=== PATIENT | female | born 1950 | race Caucasian/White ===

== ENCOUNTER → 2018-05-14 14:37 | Outpatient (CLI) | payer MEDICARE, OTHER, SELFPAY ==
--- NOTE | 2018-05-14 | DI.MG.S_ITS ---
BILATERAL DIGITAL SCREENING MAMMOGRAM 3D/2D WITH CAD: 05/14/2018 CLINICAL: Routine screening. Comparison is made to exams dated: 12/26/2016 mammogram, 08/04/2010 mammogram, and 07/21/2009 mammogram - [facility]. The tissue of both breasts is heterogeneously dense. This may lower the sensitivity of mammography. Current study was also evaluated with a Computer Aided Detection (CAD) system. There is 0.4 cm oval low density asymmetry with an indistinct and circumscribed margin in the right breast anterior depth superior region seen on the mediolateral oblique view only. No other significant masses, calcifications, or other findings are seen in either breast. IMPRESSION: INCOMPLETE: NEEDS ADDITIONAL IMAGING EVALUATION The 0.4 cm oval low density asymmetry in the right breast is indeterminate. Mediolateral and spot compression views as well as additional views with possible ultrasound are recommended. This exam was interpreted at Station ID: [id number]. NOTE: For mammograms, a report in lay terms will be sent to the patient. Approximately 15% of breast malignancies will not be visualized mammographically. In the management of a palpable breast mass, a negative mammogram must not discourage biopsy of a clinically suspicious lesion. Electronically Signed By: Michael bray/odette:05/14/2018 16:25:24 letter sent: Additional Imaging Needed ACR BI-RADS Category 0: Incomplete 3340F
== END ==
PROVIDERS: PCP Family Medicine; Visit Provider Family Medicine
DX: Z12.31 Encounter for screening mammogram for malignant neoplasm of breast (principal); Z13.820 Encounter for screening for osteoporosis; Z78.0 Asymptomatic menopausal state; E07.9 Disorder of thyroid, unspecified
CPT/HCPCS: 77063; 77067; 77080

== ENCOUNTER → 2018-06-04 09:52 | Outpatient (CLI) | payer MEDICARE, OTHER, SELFPAY ==
--- NOTE | 2018-06-04 | DI.MG.S_ITS ---
UNILATERAL RIGHT DIGITAL DIAGNOSTIC MAMMOGRAM 3D/2D WITH ADDITIONAL VIEWS: 06/04/2018 CLINICAL: Additional evaluation requested from prior study. Comparison is made to exams dated: 05/14/2018 mammogram, 12/26/2016 mammogram, and 08/04/2010 mammogram - [facility]. The tissue of right breast is heterogeneously dense. This may lower the sensitivity of mammography. Previously identified 0.4 cm oval low density asymmetry with an indistinct margin in the right breast anterior depth superior region seen on the mediolateral oblique view only on comparison screening mammograms persists with additional views. This asymmetry appears to localize to the lateral breast on tomosynthesis views. IMPRESSION: INCOMPLETE: NEEDS ADDITIONAL IMAGING EVALUATION Previously identified 0.4 cm oval low density asymmetry with an indistinct margin in the right breast anterior depth superior region seen on the mediolateral oblique view only on comparison screening mammograms persists with additional views. This asymmetry appears to localize to the lateral breast on tomosynthesis views. A targeted ultrasound is recommended for further evaluation, and will be performed immediately following this exam. This exam was interpreted at Station ID: [id number]. NOTE: For mammograms, a report in lay terms will be sent to the patient. Approximately 15% of breast malignancies will not be visualized mammographically. In the management of a palpable breast mass, a negative mammogram must not discourage biopsy of a clinically suspicious lesion. Electronically Signed By: Franky Hayes M.D. ecl/:06/04/2018 10:54:50 letter sent: Additional Imaging Needed ACR BI-RADS Category 0: Incomplete 3340F
--- NOTE | 2018-06-04 | DI.US.S_ITS ---
LIMITED ULTRASOUND OF RIGHT BREAST: 06/04/2018 CLINICAL: Additional evaluation requested from prior study. Comparison is made to exams dated: 06/04/2018 mammogram, 05/14/2018 mammogram, 12/26/2016 mammogram, 08/04/2010 mammogram, 07/21/2009 mammogram, and 10/26/2007 mammogram - [facility]. Real-time and Doppler ultrasound of the right breast upper outer quadrant were performed. Vera scale images of the real-time examination were reviewed. Targeted ultrasound of the upper outer right breast demonstrates a 0.5 x 0.4 x 0.3 cm oval circumscribed hypoechoic mass in the right breast at 10:00 position 5 cm from the nipple with internal echogenic foci, mildly increased posterior acoustic enhancement/through-transmission, and no vascularity on Doppler ultrasound. This appears to correlate with the findings seen on comparison screening and diagnostic mammography. Target ultrasound of the right axilla demonstrates no right axillary lymphadenopathy. IMPRESSION: PROBABLY BENIGN 1. 0.5 cm oval mass in the right breast at 10:00 position 5 cm from the nipple demonstrates no vascularity and likely represents a complicated cyst or intramammary lymph node. A followup diagnostic mammogram and ultrasound in 6 months is recommended to demonstrate stability. The patient is advised to monitor her breasts and to return sooner for re-evaluation should she feel anything grow or change. 2. No right axillary lymphadenopathy. This exam was interpreted at Station ID: [id number]. Electronically Signed By: Franky Hayes M.D. ecl/:06/04/2018 11:46:43 letter sent: Followup Recommended Ultrasound BI-RADS: 3 Probably benign
== END ==
PROVIDERS: PCP Family Medicine; Visit Provider Family Medicine
DX: R92.8 Other abnormal and inconclusive findings on diagnostic imaging of breast (principal); N63.11 Unspecified lump in the right breast, upper outer quadrant
CPT/HCPCS: 76642; 77065; G0279

== ENCOUNTER → 2019-02-03 09:15 | Outpatient (CLI) | payer MEDICARE, OTHER, SELFPAY ==
--- NOTE | 2019-02-03 | DI.MG.S_ITS ---
UNILATERAL RIGHT DIGITAL DIAGNOSTIC MAMMOGRAM 3D/2D SHORT-TERM FOLLOW-UP: 02/03/2019 CLINICAL: Short follow up. Comparison is made to exams dated: 06/04/2018 mammogram, 05/14/2018 mammogram, 12/26/2016 mammogram, and 06/04/2018 [facility]. The tissue of right breast is heterogeneously dense. This may lower the sensitivity of mammography. Previously identified oval low density asymmetry with an indistinct margin in the right breast anterior depth superior region seen on the mediolateral oblique view only on comparison mammograms of 06/04/18 and 05/14/18 appears less prominent on the current exam. This asymmetry again appears to localize to the lateral breast on tomosynthesis views. IMPRESSION: INCOMPLETE: NEEDS ADDITIONAL IMAGING EVALUATION Previously identified oval low density asymmetry with an indistinct margin in the right breast anterior depth superior region seen on the mediolateral oblique view only on comparison mammograms of 06/04/18 and 05/14/18 appears less prominent on the current exam. A targeted ultrasound is recommended for further evaluation, and will be performed immediately following this exam. This exam was interpreted at Station ID: [id number]. NOTE: For mammograms, a report in lay terms will be sent to the patient. Approximately 15% of breast malignancies will not be visualized mammographically. In the management of a palpable breast mass, a negative mammogram must not discourage biopsy of a clinically suspicious lesion. Electronically Signed By: Franky Hayes M.D. ecl/:02/03/2019 10:19:37 ACR BI-RADS Category 0: Incomplete 3340F
--- NOTE | 2019-02-03 | DI.US.S_ITS ---
LIMITED ULTRASOUND OF RIGHT BREAST: 02/03/2019 CLINICAL: 6 month follow-up of right breast. Comparison is made to exams dated: 02/03/2019 mammogram, 06/04/2018 ultrasound, 06/04/2018 mammogram, 05/14/2018 mammogram, 12/26/2016 mammogram, and 08/04/2010 mammogram - [facility]. Color flow and real-time ultrasound of the right breast 10 o'clock region were performed. Vera scale images of the real-time examination were reviewed. Targeted ultrasound demonstrates a 0.2 x 0.2 x 0.1 cm (previously 0.5 x 0.4 x 0.3 cm on 06/04/18) oval circumscribed hypoechoic mass in the right breast at 10:00 position 5 cm from the nipple with internal echogenic foci, mildly increased posterior acoustic enhancement/through-transmission, and no vascularity on Doppler ultrasound. This appears to correlate with the findings seen on comparison screening and diagnostic mammography. IMPRESSION: PROBABLY BENIGN 0.2 cm oval mass in the right breast at 10:00 position 5 cm from the nipple is decreased in size from prior comparison exam of 05/04/18. The mass again demonstrates no vascularity and likely represents a complicated cyst or intramammary lymph node. A followup diagnostic mammogram and ultrasound in 6 months is recommended to demonstrate stability. The patient is advised to monitor her breasts and to return sooner for re-evaluation should she feel anything grow or change. This exam was interpreted at Station ID: [id number]. Electronically Signed By: Franky Hayes M.D. ecl/:02/03/2019 11:47:41 letter sent: Followup Recommended Ultrasound BI-RADS: 3 Probably benign
== END ==
PROVIDERS: PCP Family Medicine; Visit Provider Family Medicine
DX: R92.8 Other abnormal and inconclusive findings on diagnostic imaging of breast (principal); N63.11 Unspecified lump in the right breast, upper outer quadrant
CPT/HCPCS: 76642; 77065; G0279

== ENCOUNTER 2019-05-27 09:25 | Day surgery (SDC) | payer MEDICARE, OTHER, SELFPAY ==
[2019-05-27] MEDS: PROPARACAINE 0.5% OPHTH SOL 2 DROPS EYE-OP (10:11)
[2019-05-27] MEDS: CATARACT EYE COMPOUND (10 DROPS/SYRINGE) 3 DROPS EYE-OP (10:14)
[2019-05-27 10:16] VITALS: BP 126/75; PULSE 74; RESP 15; TEMP 36.2; O2SAT 96
[2019-05-27 10:17] VITALS: BMI 35.3
--- NOTE | 2019-05-27 11:02 | PM.PREOP ---
Pre-operative Note Interval Note History & Physical reviewed/Exam performed by Physician: Yes Changes to H&P: No
--- NOTE | 2019-05-27 11:02 | PM.OP.1 ---
Operative Date/Time/Diagnoses Pre-op diagnosis: Nuclear Cataract Left eye Post-op diagnosis: same Procedure & Clinicians Same procedure as scheduled: Yes Surgeon: Anil Kendrick Anesthesia Type: MAC +/- and Sedation Operative Notes Procedure in detail: Patient brought to the operating suite. Tetracaine drops placed in the left eye. Patient was prepped and draped in sterile manner. Wire lid speculum was placed in the eye. Betadine drops were placed on the eye. This was irrigated. Lidocaine jelly was placed on the eye. A paracentesis port was created with a side-port blade. 0.1 mL 1% preservative free lidocaine was injected into the anterior chamber. The anterior chamber was deepened with viscoelastic. 2.6 mm keratome was used to create a temporal clear corneal incision. Cystotome and Utrata forceps were used to create continuous tear capsulorrhexis. Balanced salt solution was used to hydro dissect the nucleus. The phacoemulsification handpiece was inserted and the nucleus was removed using the stop and chop technique. The irrigation aspiration handpiece was inserted and the remaining cortex was removed. Anterior chamber was deepened with viscoelastic. An Pop ZCB00 intraocular lens with a power of 21.0 was injected into the capsular bag. Irrigation aspiration handpiece was inserted and the remaining viscoelastic was removed. Incision was hydrated with balanced salt solution and found to be leak free with pressure with Weck-Genna sponges. 0.1 mL Vigamox injected anterior chamber. 0.3 mL Kenalog 10 mg was injected subconjunctivally. Lid speculum was removed. The patient left the operating room in excellent condition. Complications: none Post-operative Condition: stable Disposition: same day surgery
[2019-05-27] MEDS: CHONDROIDTIN/SOD HYALURONATE 1.05 ML SYRINGE INTRAOCULA (11:17)
[2019-05-27] MEDS: TETRACAINE 0.5% OPHTH DROPS 4 ML 2 DROPS EYE-OP (11:17)
[2019-05-27] MEDS: MOXIFLOXACIN INJ 5 MG/ML VIAL EYE-OP (11:18)
[2019-05-27] MEDS: PHENYLEPHRINE/LIDOCAINE VIAL (OR) 0.2 ML EYE-OP (11:18)
[2019-05-27] MEDS: TRIAMCINOLONE 50 MG/5 ML VIAL INJ (11:18)
[2019-05-27] MEDS: BALANCED SALT IRRIG SOLN NO.2 500 ML, EPINEPHrine 1 MG IRR (11:20)
[2019-05-27 11:35] VITALS: BP 122/77; RESP 16; TEMP 36; O2SAT 94
== END 2019-05-27 11:51 | disposition home or self-care (01) ==
PROVIDERS: PCP Family Medicine; Referring Provider Ophthalmology; Visit Provider Ophthalmology
PROC: (CPT 66984; principal; 2019-05-27 11:15)
DX: H25.12 Age-related nuclear cataract, left eye (principal)
CPT/HCPCS: 66984; J0171; J2250; J3010; J3301

== ENCOUNTER 2019-06-10 07:57 | Day surgery (SDC) | payer MEDICARE, OTHER, SELFPAY ==
[2019-06-10 09:00] VITALS: BP 128/72; PULSE 66; RESP 17; TEMP 36.5; O2SAT 97
[2019-06-10] MEDS: PROPARACAINE 0.5% OPHTH SOL 2 DROPS EYE-OP (09:00)
[2019-06-10] MEDS: CATARACT EYE COMPOUND (10 DROPS/SYRINGE) 3 DROPS EYE-OP (09:05)
--- NOTE | 2019-06-10 09:37 | PM.PREOP ---
Pre-operative Note Interval Note History & Physical reviewed/Exam performed by Physician: Yes Changes to H&P: No
--- NOTE | 2019-06-10 09:37 | PM.OP.1 ---
Operative Date/Time/Diagnoses Pre-op diagnosis: Nuclear cataract right eye Procedure & Clinicians Procedure: Cataract Surgery Same procedure as scheduled: Yes Surgeon: Anil Kendrick Anesthesia Type: MAC +/- and Sedation Operative Notes Procedure in detail: Patient brought to the operating suite. Tetracaine drops placed in the right eye. Patient was prepped and draped in sterile manner. Wire lid speculum was placed in the eye. Betadine drops were placed on the eye. This was irrigated. Lidocaine jelly was placed on the eye. A paracentesis port was created with a side-port blade. 0.1 mL 1% preservative free lidocaine was injected into the anterior chamber. The anterior chamber was deepened with viscoelastic. 2.6 mm keratome was used to create a temporal clear corneal incision. Cystotome and Utrata forceps were used to create continuous tear capsulorrhexis. Balanced salt solution was used to hydro dissect the nucleus. The phacoemulsification handpiece was inserted and the nucleus was removed using the stop and chop technique. The irrigation aspiration handpiece was inserted and the remaining cortex was removed. Anterior chamber was deepened with viscoelastic. An Pop ZCB00 intraocular lens with a power of 21.5 was injected into the capsular bag. Irrigation aspiration handpiece was inserted and the remaining viscoelastic was removed. Incision was hydrated with balanced salt solution and found to be leak free with pressure with Weck-Genna sponges. 0.1 mL Vigamox injected anterior chamber. 0.3 mL Kenalog 10 mg was injected subconjunctivally. Lid speculum was removed. The patient left the operating room in excellent condition. Complications: none Post-operative Condition: stable Disposition: same day surgery
[2019-06-10] MEDS: PHENYLEPHRINE/LIDOCAINE VIAL (OR) 0.2 ML EYE-OP (09:54)
[2019-06-10] MEDS: TRIAMCINOLONE 50 MG/5 ML VIAL INJ (09:54)
[2019-06-10] MEDS: MOXIFLOXACIN INJ 5 MG/ML VIAL EYE-OP (09:54)
[2019-06-10] MEDS: LIDOCAINE JELLY 2% 5 ML 1 APPLIC TOP (09:55)
[2019-06-10] MEDS: BALANCED SALT IRRIG SOLN NO.2 500 ML, EPINEPHrine 1 MG IRR (09:55)
[2019-06-10] MEDS: TETRACAINE 0.5% OPHTH DROPS 4 ML 2 DROPS EYE-OP (09:55)
[2019-06-10] MEDS: CHONDROIDTIN/SOD HYALURONATE 1.05 ML SYRINGE INTRAOCULA (09:55)
[2019-06-10 10:07] VITALS: BP 97/58; PULSE 66; RESP 16; TEMP 36.7; O2SAT 96
[2019-06-10 10:14] VITALS: BP 112/70; PULSE 65; O2SAT 95
== END 2019-06-10 10:20 | disposition home or self-care (01) ==
PROVIDERS: PCP Family Medicine; Referring Provider Ophthalmology; Visit Provider Ophthalmology
PROC: (CPT 66984; principal; 2019-06-10 09:45)
DX: H25.11 Age-related nuclear cataract, right eye (principal)
CPT/HCPCS: 66984; J0171; J2250; J3010; J3301

== ENCOUNTER 2019-07-15 11:13 | Inpatient (IN) | payer MEDICARE, OTHER, SELFPAY ==
[2019-07-15] VITALS (14 sets, daily range): BP systolic 140–215; BP diastolic 86–135; PULSE 85–120; RESP 15–30; TEMP 36.1–36.9; O2SAT 95–97; BMI 33.0
--- NOTE | 2019-07-15 11:20 | ED.GENADULT ---
HPI - General Adult General Chief complaint: Urogenital-Female Stated complaint: thinks she has sepsis from a bladder infection Time Seen by Provider: 07/15/19 11:20 History of Present Illness HPI narrative: 69-year-old woman who began having urinary tract symptoms yesterday was seen via telemedicine visit with her primary care physician and started on Levaquin. She describes her urinary symptoms as decreased amount of urine, no pain, spasm or flank pain. She has taken 2 doses as well as a g of Tylenol at 10:00 a.m. today. At 11:00 a.m. when she presents to the emergency room she is tachycardic, tachypneic, profusely diaphoretic, complaining of mild low abdominal pain without rebound or guarding and initially is relatively hypertensive. Presumption was initially sepsis with fluids and antibiotics started along with cultures, antibiotics and urine. She is not having any pulmonary symptoms. Similarly, she describes no chest pain, shortness of breath no prior cardiac history, no pleuritic symptoms, no lower extremity edema. 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 Related Data Home Medications Medication Instructions Recorded Confirmed atorvastatin [Lipitor] 20 mg PO HS #0 12/17/10 06/10/19 levothyroxine [Synthroid] 0.125 mg PO Q DAY #0 12/17/10 06/10/19 lisinopril 10 mg PO BEDTIME #0 12/17/10 06/10/19 paroxetine HCl [Paxil] 20 mg PO QDAY #0 12/17/10 06/10/19 aspirin 325 mg PO DAILY 05/27/19 06/10/19 Allergies Allergy/AdvReac Type Severity Reaction Status Date / Time No Known Drug Allergies Allergy Verified 06/10/19 09:12 Review of Systems Review of Systems Narrative: Denies ? cough ? cold ? chest pain ? dyspnea (despite her tachypnea) ? orthopnea ? wheezing ? abdominal pain ? change to bowel habits ? nausea vomiting ? skin changes ? rashes Patient History Medical History Elevated cholesterol (Acute) History of migraine (Acute) Hypertension (Acute) IBS (irritable bowel syndrome) (Acute) Panic attacks (Acute) Throat cancer (Acute 2003) TIA (transient ischemic attack) (Acute) Surgical History History of carotid endarterectomy (Acute) Hx laparoscopic cholecystectomy (Acute) Social History household members: spouse Smoking Status: Never smoker alcohol intake: current Smoking Status: Never smoker alcohol intake frequency: 0-2 drinks per day Substance Use Type: marijuana Exam Narrative Exam Narrative: General: Ill-appearing with rigors and profuse diaphoresis. Able to give a complete and coherent history. Well-nourished well-developed HEENT: Very dry mucous membranes, normal sclera with reactive pupils, Neck: No JVD, supple Respiratory: Lungs are clear to auscultation, no wheezing no rales no rhonchi. Full and symmetrical air movement Cardiac: Tachycardic with regular rhythm no murmurs no bruits Abdomen: Soft, minor suprapubic tenderness without rebound or guarding. Good bowel tones, no flank pain Skin: Warm and dry, no rashes. Minor bruise on the left patella with no evidence of hypoperfused lower extremities or lower extremity cellulitis Neurologic: Grossly neurologically intact with no obvious asymmetries or abnormalities Extremities: No trauma, well perfused Psych: Cooperative, appropriate insight and affect Initial Vital Signs Initial Vital Signs: Vital Signs Temperature 98.2 F 07/15/19 11:15 Pulse Rate 120 H 07/15/19 11:15 Respiratory Rate 15 07/15/19 11:15 Blood Pressure 194/115 H 07/15/19 11:15 Pulse Oximetry 96 07/15/19 11:15 Course Orders Ordered: ED Orders 07/15/19 11:26 Complete Blood Count AUTO DIFF Stat Comprehensive Metabolic Panel Stat Lactate (Lactic Acid) Stat Magnesium Stat Procalcitonin Stat Troponin I Stat 07/15/19 11:32 XR chest 1V Stat 07/15/19 12:00 Blood Culture Stat 07/15/19 12:54 Urinalysis and Microscopic Stat Urine Culture Stat 07/15/19 13:24 EC echo doppler complete Stat 07/15/19 13:50 CT chest abd pel w con Stat 07/15/19 13:58 C-Reactive Protein Quant Stat D Dimer Stat Lactate Dehydrogenase Stat Respiratory Panel (Film Array) Stat Troponin & CK Cardiac Panel Stat 07/15/19 15:16 EKG-12 Lead Stat Sodium Chloride (Normal Saline 0.9%) 1,000 mls @ 150 mls/hr IV CONT JESSICA Last Infusion: 07/15/19 16:32 Dose: 0 mls/hr Documented by: Admin: 07/15/19 16:06 Dose: 150 mls/hr Documented by: PERLA Heparin Sodium/Dextrose (Heparin Drip) 25,000 unit in 500 mls @ 20 mls/hr IV CONT JESSICA; Protocol Last Admin: 07/15/19 15:32 Dose: 1,000 units/hr, 20 mls/hr Documented by: PERLA Nitroglycerin (Nitrostat) 0.4 mg SL [id number] PRN PRN Reason: Chest Pain Last Admin: 07/15/19 15:33 Dose: 0.4 mg Documented by: PERLA Discontinued Medications Aspirin (Aspirin Chew) 324 mg PO NOW ONE Stop: 07/15/19 13:18 Last Admin: 07/15/19 14:34 Dose: 324 mg Documented by: PERLA Heparin Sodium (Porcine) (Heparin) 5,000 unit IV NOW ONE Stop: 07/15/19 15:16 Last Admin: 07/15/19 15:32 Dose: 5,000 unit Documented by: PERLA Sodium Chloride (Normal Saline 0.9%) 2,850 mls @ 950 mls/hr 30 ml/kg infuse over 3 hr (2850 ml) IV NOW ONE Stop: 07/15/19 14:31 Last Infusion: 07/15/19 15:00 Dose: 950 mls/hr Documented by: Admin: 07/15/19 12:07 Dose: 950 mls/hr Documented by: PERLA Piperacillin/Tazobactam/Dextrose (Zosyn) 4.5 gm in 100 mls @ 200 mls/hr IV NOW ONE Stop: 07/15/19 12:01 Last Infusion: 07/15/19 13:08 Dose: 0 mls/hr Documented by: Admin: 07/15/19 12:09 Dose: 200 mls/hr Documented by: PERLA Sodium Chloride (Normal Saline 0.9%) 1,000 mls @ 1,000 mls/hr IV BOLUS ONE Stop: 07/15/19 13:18 Last Infusion: 07/15/19 16:07 Dose: 0 mls/hr Documented by: Admin: 07/15/19 14:34 Dose: 1,000 mls/hr Documented by: PERLA Magnesium Sulfate (Magnesium Sulfate) 2 gm in 50 mls @ 25 mls/hr IV NOW ONE Stop: 07/15/19 16:13 Last Infusion: 07/15/19 16:41 Dose: 0 mls/hr Documented by: PERLA Cosigned by: JOSE Admin: 07/15/19 14:34 Dose: 25 mls/hr Documented by: PERLA Cosigned by: JOSE Metoprolol Tartrate (Lopressor) 5 mg IV Q5M JESSICA Stop: 07/15/19 15:41 Last Admin: 07/15/19 16:41 Dose: Not Given Documented by: Admin: 07/15/19 16:40 Dose: Not Given Documented by: Admin: 07/15/19 15:32 Dose: 5 mg Documented by: PERLA Nitroglycerin (Nitro-Bid) 0.5 inch TOP NOW ONE Stop: 07/15/19 15:22 Last Admin: 07/15/19 15:33 Dose: 0.5 inch Documented by: PERLA Vital Signs Vital signs: Vital Signs - 8 hr 07/15/19 11:15 07/15/19 11:30 07/15/19 12:08 Temperature 98.2 F Pulse Rate 120 H 115 H 118 H Respiratory Rate 15 25 H 22 Blood Pressure 194/115 H Blood Pressure [Left Arm] 192/92 H 171/117 H Pulse Oximetry 96 96 97 07/15/19 12:35 07/15/19 13:04 07/15/19 13:55 Temperature 98.4 F Pulse Rate 110 H 102 H 108 H Respiratory Rate 23 27 H 27 H Blood Pressure Blood Pressure [Left Arm] 205/110 H 194/91 H 215/94 H Pulse Oximetry 97 95 97 07/15/19 14:04 07/15/19 14:30 07/15/19 15:04 Temperature Pulse Rate 104 H 107 H 116 H Respiratory Rate 24 24 22 Blood Pressure Blood Pressure [Left Arm] 190/93 H 187/91 H 192/86 H Pulse Oximetry 97 96 96 07/15/19 15:33 07/15/19 15:50 07/15/19 16:00 Temperature Pulse Rate 116 H 113 H 87 Respiratory Rate 22 30 H Blood Pressure 206/135 H Blood Pressure [Left Arm] 157/94 H 153/97 H Pulse Oximetry 96 96 07/15/19 17:01 Temperature Pulse Rate 85 Respiratory Rate 20 Blood Pressure Blood Pressure [Left Arm] 140/91 H Pulse Oximetry 95 Medical Decision Making Medical Records Medical records reviewed: Yes I reviewed the patient's medical records. Lab Data Lab results reviewed: Yes I reviewed the patient's lab results. Result diagrams: 07/15/19 11:26 07/15/19 11:26 Labs: Lab Results 07/15/19 07/15/19 07/15/19 Range/Units 11:26 11:26 11:26 WBC 12.3 H (4.5-11.0) X10^3/uL RBC 5.29 H (4.0-5.2) X10^6/uL Hgb 17.0 H (12.0-16.0) g/dL Hct 50.1 H (36-46) % MCV 94.8 (80-100) fL MCH 32.2 (26-34) PG MCHC 33.9 (30-36) % RDW 14.0 (11.6-14.8) % Plt Count 318 (150-400) X10^3/uL Neut % (Auto) 84.0 H (50-75) % Lymph % (Auto) 8.5 L (25-40) % Dare % (Auto) 6.9 (3-14) % Eos % (Auto) 0.0 L (2-4) % Baso % (Auto) 0.6 (0-2) % Neut # (Auto) 71427 H (0391-3566) /uL Lymph # (Auto) 1100 (6310-5227) /uL Dare # (Auto) 900 (0-900) /uL Eos # (Auto) 0 (0-450) /uL Baso # (Auto) 100 (0-100) /uL D-Dimer (<230) ng/mL Sodium 138 (137-145) mmol/L Potassium 3.6 (3.4-5.1) mmol/L Chloride 98 (98-107) mmol/L Carbon Dioxide 21 L (22-32) mmol/L BUN 21 H (7-17) mg/dL Creatinine 1.05 H (0.52-1.04) mg/dL Estimated GFR 51.7 L (>60) mL/min BUN/Creatinine Ratio 20.0 (6-22) Glucose 179 H (80-110) mg/dL Lactate (0.7-2.1) mmol/L Calcium 10.0 (8.4-10.2) mg/dL Magnesium (1.6-2.3) mg/dL Total Bilirubin 1.8 H (0.2-1.3) mg/dL AST 94 H (14-36) IU/L ALT 68 H (<35) IU/L Alkaline Phosphatase 122 (38-126) U/L Lactate Dehydrogenase (313-618) U/L Total Creatine Kinase (30-135) U/L CK-MB (CK-2) (<2.37) ng/mL CK-MB (CK-2) Rel Index (1.5-5.0) % Troponin I (0.01-0.034) ng/mL C-Reactive Protein (<1.0) mg/dL Total Protein 9.2 H (6.3-8.2) g/dL Albumin 5.1 H (3.5-5.0) g/dL Globulin 4.1 (1.7-4.1) g/dL Albumin/Globulin Ratio 1.2 (1.0-2.8) Procalcitonin 0.10 (<0.5) ng/mL Urine Color Urine Appearance Urine pH (4.5-8.0) Ur Specific [place] (1.000-1.035) Urine Protein (Negative) Urine Glucose (UA) (Negative) g/dL Urine Ketones (NEGATIVE) Urine Occult Blood (Negative) Urine Nitrate (Negative) Urine Bilirubin (NEGATIVE) Urine Urobilinogen (0.2) E.U./dL Ur Leukocyte Esterase (NEGATIVE) Urine RBC (0-5/HPF) Urine WBC (0-5/HPF) Ur Squamous Epith Cells (0-5/HPF) Amorphous Sediment Urine Bacteria (None) Urine Mucus (Negative) Ur Culture Indicated? Chlamy pneumoniae PCR (Not Detect) Adenovirus (PCR) (Not Detect) B.parapertussis DNA PCR (Not Detect) Coronavirus OC43 (PCR) (Not Detect) Coronavirus HKU1 (PCR) (Not Detect) Coronavirus 229E (PCR) (Not Detect) Coronavirus NL63 (PCR) (Not Detect) Human Metapneumovir PCR (Not Detect) Influenza Type A (PCR) (Not Detect) Influenza Type B (PCR) (Not Detect) M. pneumoniae (PCR) (Not Detect) Parainfluenza 1 (PCR) (Not Detect) Parainfluenza 2 (PCR) (Not Detect) Parainfluenza 3 (PCR) (Not Detect) Parainfluenza 4 (PCR) (Not Detect) RSV (PCR) (Not Detect) Entero/Rhino (PCR) (Not Detect) 07/15/19 07/15/19 07/15/19 Range/Units 11:26 11:26 12:54 WBC (4.5-11.0) X10^3/uL RBC (4.0-5.2) X10^6/uL Hgb (12.0-16.0) g/dL Hct (36-46) % MCV (80-100) fL MCH (26-34) PG MCHC (30-36) % RDW (11.6-14.8) % Plt Count (150-400) X10^3/uL Neut % (Auto) (50-75) % Lymph % (Auto) (25-40) % Dare % (Auto) (3-14) % Eos % (Auto) (2-4) % Baso % (Auto) (0-2) % Neut # (Auto) (3150-2240) /uL Lymph # (Auto) (2561-5433) /uL Dare # (Auto) (0-900) /uL Eos # (Auto) (0-450) /uL Baso # (Auto) (0-100) /uL D-Dimer (<230) ng/mL Sodium (137-145) mmol/L Potassium (3.4-5.1) mmol/L Chloride (98-107) mmol/L Carbon Dioxide (22-32) mmol/L BUN (7-17) mg/dL Creatinine (0.52-1.04) mg/dL Estimated GFR (>60) mL/min BUN/Creatinine Ratio (6-22) Glucose (80-110) mg/dL Lactate 6.7 H* (0.7-2.1) mmol/L Calcium (8.4-10.2) mg/dL Magnesium 1.1 L (1.6-2.3) mg/dL Total Bilirubin (0.2-1.3) mg/dL AST (14-36) IU/L ALT (<35) IU/L Alkaline Phosphatase (38-126) U/L Lactate Dehydrogenase (313-618) U/L Total Creatine Kinase (30-135) U/L CK-MB (CK-2) (<2.37) ng/mL CK-MB (CK-2) Rel Index (1.5-5.0) % Troponin I 0.595 H* (0.01-0.034) ng/mL C-Reactive Protein (<1.0) mg/dL Total Protein (6.3-8.2) g/dL Albumin (3.5-5.0) g/dL Globulin (1.7-4.1) g/dL Albumin/Globulin Ratio (1.0-2.8) Procalcitonin (<0.5) ng/mL Urine Color Yellow Urine Appearance Clear Urine pH 7.0 (4.5-8.0) Ur Specific [place] 1.020 (1.000-1.035) Urine Protein 3+ H (Negative) Urine Glucose (UA) Negative (Negative) g/dL Urine Ketones 1+ H (NEGATIVE) Urine Occult Blood 3+ H (Negative) Urine Nitrate Negative (Negative) Urine Bilirubin Negative (NEGATIVE) Urine Urobilinogen 0.2 (0.2) E.U./dL Ur Leukocyte Esterase Negative (NEGATIVE) Urine RBC 1-5/hpf (0-5/HPF) Urine WBC 5-10/hpf H (0-5/HPF) Ur Squamous Epith Cells 0-1 /hpf (0-5/HPF) Amorphous Sediment 1+ Urine Bacteria Few (2-10) H (None) Urine Mucus 1+ H (Negative) Ur Culture Indicated? Specimen cultured Chlamy pneumoniae PCR (Not Detect) Adenovirus (PCR) (Not Detect) B.parapertussis DNA PCR (Not Detect) Coronavirus OC43 (PCR) (Not Detect) Coronavirus HKU1 (PCR) (Not Detect) Coronavirus 229E (PCR) (Not Detect) Coronavirus NL63 (PCR) (Not Detect) Human Metapneumovir PCR (Not Detect) Influenza Type A (PCR) (Not Detect) Influenza Type B (PCR) (Not Detect) M. pneumoniae (PCR) (Not Detect) Parainfluenza 1 (PCR) (Not Detect) Parainfluenza 2 (PCR) (Not Detect) Parainfluenza 3 (PCR) (Not Detect) Parainfluenza 4 (PCR) (Not Detect) RSV (PCR) (Not Detect) Entero/Rhino (PCR) (Not Detect) 07/15/19 07/15/19 07/15/19 Range/Units 13:58 13:58 13:58 WBC (4.5-11.0) X10^3/uL RBC (4.0-5.2) X10^6/uL Hgb (12.0-16.0) g/dL Hct (36-46) % MCV (80-100) fL MCH (26-34) PG MCHC (30-36) % RDW (11.6-14.8) % Plt Count (150-400) X10^3/uL Neut % (Auto) (50-75) % Lymph % (Auto) (25-40) % Dare % (Auto) (3-14) % Eos % (Auto) (2-4) % Baso % (Auto) (0-2) % Neut # (Auto) (2497-3781) /uL Lymph # (Auto) (7448-4890) /uL Dare # (Auto) (0-900) /uL Eos # (Auto) (0-450) /uL Baso # (Auto) (0-100) /uL D-Dimer 220 (<230) ng/mL Sodium (137-145) mmol/L Potassium (3.4-5.1) mmol/L Chloride (98-107) mmol/L Carbon Dioxide (22-32) mmol/L BUN (7-17) mg/dL Creatinine (0.52-1.04) mg/dL Estimated GFR (>60) mL/min BUN/Creatinine Ratio (6-22) Glucose (80-110) mg/dL Lactate Cancelled (0.7-2.1) mmol/L Calcium (8.4-10.2) mg/dL Magnesium (1.6-2.3) mg/dL Total Bilirubin (0.2-1.3) mg/dL AST (14-36) IU/L ALT (<35) IU/L Alkaline Phosphatase (38-126) U/L Lactate Dehydrogenase 697 H (313-618) U/L Total Creatine Kinase (30-135) U/L CK-MB (CK-2) (<2.37) ng/mL CK-MB (CK-2) Rel Index (1.5-5.0) % Troponin I (0.01-0.034) ng/mL C-Reactive Protein < 0.5 (<1.0) mg/dL Total Protein (6.3-8.2) g/dL Albumin (3.5-5.0) g/dL Globulin (1.7-4.1) g/dL Albumin/Globulin Ratio (1.0-2.8) Procalcitonin (<0.5) ng/mL Urine Color Urine Appearance Urine pH (4.5-8.0) Ur Specific [place] (1.000-1.035) Urine Protein (Negative) Urine Glucose (UA) (Negative) g/dL Urine Ketones (NEGATIVE) Urine Occult Blood (Negative) Urine Nitrate (Negative) Urine Bilirubin (NEGATIVE) Urine Urobilinogen (0.2) E.U./dL Ur Leukocyte Esterase (NEGATIVE) Urine RBC (0-5/HPF) Urine WBC (0-5/HPF) Ur Squamous Epith Cells (0-5/HPF) Amorphous Sediment Urine Bacteria (None) Urine Mucus (Negative) Ur Culture Indicated? Chlamy pneumoniae PCR (Not Detect) Adenovirus (PCR) (Not Detect) B.parapertussis DNA PCR (Not Detect) Coronavirus OC43 (PCR) (Not Detect) Coronavirus HKU1 (PCR) (Not Detect) Coronavirus 229E (PCR) (Not Detect) Coronavirus NL63 (PCR) (Not Detect) Human Metapneumovir PCR (Not Detect) Influenza Type A (PCR) (Not Detect) Influenza Type B (PCR) (Not Detect) M. pneumoniae (PCR) (Not Detect) Parainfluenza 1 (PCR) (Not Detect) Parainfluenza 2 (PCR) (Not Detect) Parainfluenza 3 (PCR) (Not Detect) Parainfluenza 4 (PCR) (Not Detect) RSV (PCR) (Not Detect) Entero/Rhino (PCR) (Not Detect) 07/15/19 07/15/19 07/15/19 Range/Units 13:58 13:58 13:58 WBC (4.5-11.0) X10^3/uL RBC (4.0-5.2) X10^6/uL Hgb (12.0-16.0) g/dL Hct (36-46) % MCV (80-100) fL MCH (26-34) PG MCHC (30-36) % RDW (11.6-14.8) % Plt Count (150-400) X10^3/uL Neut % (Auto) (50-75) % Lymph % (Auto) (25-40) % Dare % (Auto) (3-14) % Eos % (Auto) (2-4) % Baso % (Auto) (0-2) % Neut # (Auto) (2241-0302) /uL Lymph # (Auto) (4754-0969) /uL Dare # (Auto) (0-900) /uL Eos # (Auto) (0-450) /uL Baso # (Auto) (0-100) /uL D-Dimer (<230) ng/mL Sodium (137-145) mmol/L Potassium (3.4-5.1) mmol/L Chloride (98-107) mmol/L Carbon Dioxide (22-32) mmol/L BUN (7-17) mg/dL Creatinine (0.52-1.04) mg/dL Estimated GFR (>60) mL/min BUN/Creatinine Ratio (6-22) Glucose (80-110) mg/dL Lactate 2.1 (0.7-2.1) mmol/L Calcium (8.4-10.2) mg/dL Magnesium (1.6-2.3) mg/dL Total Bilirubin (0.2-1.3) mg/dL AST (14-36) IU/L ALT (<35) IU/L Alkaline Phosphatase (38-126) U/L Lactate Dehydrogenase (313-618) U/L Total Creatine Kinase 995 H (30-135) U/L CK-MB (CK-2) 4.75 H (<2.37) ng/mL CK-MB (CK-2) Rel Index 0.5 L (1.5-5.0) % Troponin I 0.713 H* (0.01-0.034) ng/mL C-Reactive Protein (<1.0) mg/dL Total Protein (6.3-8.2) g/dL Albumin (3.5-5.0) g/dL Globulin (1.7-4.1) g/dL Albumin/Globulin Ratio (1.0-2.8) Procalcitonin (<0.5) ng/mL Urine Color Urine Appearance Urine pH (4.5-8.0) Ur Specific [place] (1.000-1.035) Urine Protein (Negative) Urine Glucose (UA) (Negative) g/dL Urine Ketones (NEGATIVE) Urine Occult Blood (Negative) Urine Nitrate (Negative) Urine Bilirubin (NEGATIVE) Urine Urobilinogen (0.2) E.U./dL Ur Leukocyte Esterase (NEGATIVE) Urine RBC (0-5/HPF) Urine WBC (0-5/HPF) Ur Squamous Epith Cells (0-5/HPF) Amorphous Sediment Urine Bacteria (None) Urine Mucus (Negative) Ur Culture Indicated? Chlamy pneumoniae PCR Not detected (Not Detect) Adenovirus (PCR) Not detected (Not Detect) B.parapertussis DNA PCR Not detected (Not Detect) Coronavirus OC43 (PCR) Not detected (Not Detect) Coronavirus HKU1 (PCR) Not detected (Not Detect) Coronavirus 229E (PCR) Not detected (Not Detect) Coronavirus NL63 (PCR) Not detected (Not Detect) Human Metapneumovir PCR Not detected (Not Detect) Influenza Type A (PCR) Not detected (Not Detect) Influenza Type B (PCR) Not detected (Not Detect) M. pneumoniae (PCR) Not detected (Not Detect) Parainfluenza 1 (PCR) Not detected (Not Detect) Parainfluenza 2 (PCR) Not detected (Not Detect) Parainfluenza 3 (PCR) Not detected (Not Detect) Parainfluenza 4 (PCR) Not detected (Not Detect) RSV (PCR) Not detected (Not Detect) Entero/Rhino (PCR) Not detected (Not Detect) Imaging Data CT chest abdomen pelvis: Radiologist's Impression: CHEST: Lungs and pleura: No acute airspace opacities. No pleural effusions or pneumothorax. Central and peripheral airways appear patent and normal in caliber. Mediastinum: Heart size is normal. No pericardial effusion. No mediastinal or hilar adenopathy by size criteria. Thoracic aorta and central pulmonary arteries are normal in size. Scattered atheromatous calcifications are present within the aortic arch. Esophagus is normal in caliber. No hiatal hernia. Chest wall: No axillary or supraclavicular adenopathy by size criteria. Thyroid gland is unremarkable. ABDOMEN: Solid organs: Liver is normal in size and hypodense suggesting hepatic steatosis. Gallbladder is surgically absent. Biliary system is non dilated. Pancreas enhances normally. Spleen is normal in size and enhancement. No adrenal nodules. Kidneys demonstrate normal size and enhancement, without hydronephrosis. The low density cystic lesion is present within the lower pole of the left kidney. Peritoneum and bowel: Bowel loops demonstrate normal wall thickness and caliber. The appendix is thin walled and gas filled.There are scattered sigmoid diverticula. No evidence for diverticulitis. No free fluid or air. Nodes and vessels: No retroperitoneal or mesenteric adenopathy by size criteria. Aorta and inferior vena cava are normal in size. There are scattered atheromatous calcifications throughout the aorta and iliac arteries bilaterally. Miscellaneous: No ventral hernias. PELVIS: Genitourinary: Bladder wall thickness is normal. The uterus and ovaries are grossly unremarkable. Miscellaneous: No inguinal hernias or adenopathy. Bones: No suspicious bony lesions. No vertebral body compression fractures. IMPRESSION: 1. No acute pulmonary or abdominal findings to explain sepsis. Normal appendix. 2. Diverticulosis. No acute diverticulitis. 3. Hepatic steatosis. 4. Aortic atherosclerosis. Dictated by: Loli Newman M.D. on 07/15/2019 at 13:58 ECG Data Attestation: I personally reviewed and interpreted this ECG as follows: Interpretation: EKG has a ventricular rate of 113 with sinus tachycardia Normal axis, Q-waves inferiorly No acute STT wave changes however there was some nonspecific ST abnormalities MDM Narrative Medical decision making narrative: 12:54 re-evaluation of patient and data. She has responded nicely to initial fluid boluses with improved perfusion, decreased rigors however gentle movement even to assist with removing her pants leaves her significantly tachypneic. After noting the elevated troponin more focused cardiac exam and history were undertaken and again no dyspnea, orthopnea chest pain, exertional fatigue at all. Possibility of the cardiomyopathy, myocarditis or pericarditis is entertained. Given her elevated troponin will add a chewable aspirin to her regimen. Repeat lactate after fluid resuscitation will be obtained. Still waiting for urine, she was not able to void. In and out catheter will be obtained. Abdomen is reexamined no significant tenderness to suggest intra-abdominal abscess or High source for her findings. Chest x-ray similarly relatively unremarkable with the question of a developing right lower lobe pneumonia a possibility. Given the elevated white count, slight AST ALT bump, slight bilirubin as well as absence of any pulmonary symptoms the probability of Covid19 is less. However will ask for a respiratory panel as well as Covid19 swab, CRP, ferritin D-dimer and LDH. As she remains hypertensive at this time with to good peripheral lines will not moved to central line yet. She is not needing any additional respiratory support 1326 overall clinical picture still remains somewhat murky. Her urinalysis does have some white cells and bacteria in certainly could be a source. She complains of intermittent bili pain that she attributes to her irritable bowel disease. Given the interesting constellation of findings I am going to go ahead and CT her chest to better elucidate the probable right lower lobe pneumonia, pelvis and abdomen given the abdominal pain and still uncertain sepsis source and a cardiac echo given the elevated troponin without overt cardiac symptoms or ST elevations on her EKG Clinically, she remains somewhat hypertensive, weak but not hypoxic heart rate is come down an cognitive status remains completely intact 1520 2nd troponin is increased, she remains hypertensive, diaphoretic, tachycardic. CT scan does not suggest any obvious abnormalities to explain an infectious etiology. Clinically she states she is feeling better, still quite tremulous but no longer diaphoretic. Still no chest pain or dyspnea. Lactic acid has come down to normal levels. There are no clinical signs for cardiogenic shock. Echocardiogram has been done, will contact Dr. Douglas for read. EF is normal. Mild aortic sclerosis. Hyperdynamic. [id number] Dr Amanuel Barillas, hospitalist at [facility]. Reviewed findings and concerns, feels that this is most likely a partially treated sepsis due to urinary tract infection with out significant cardiac complication given the echocardiogram showing no evidence of wall abnormality. His recommendation is hospitalization at [facility]. Will contact Dr. Bridges or partner, her primary care physician, to discuss admission. After single dose of IV metoprolol, sublingual nitroglycerin and nitro paste blood pressure is nicely controlled at 140 and heart rate has come to the mid 90s. [id number] Dr Sanchez Critical Care Time Critical Care Time Critical Care Time: Yes Total Critical Care Time: 43 Attestation: Critical care time is separate from other billable procedures. This critical care time includes consultation with family and other consulting doctors, review of records, and interpretation of data from labs, EKGs and imaging as well as managements of sepsis, hemodynamic instability, severe infection with multi-system organ dysfunction Discharge Plan Departure Clinical Impression: Acute UTI, Elevated troponin Sepsis Qualifiers: Sepsis type: sepsis due to unspecified organism Sepsis acute organ dysfunction status: with acute organ dysfunction Severe sepsis acute organ dysfunction type: unspecified Severe sepsis shock status: without septic shock Qualified Code(s): A41.9 - Sepsis, unspecified organism Hypertension Qualifiers: Hypertension type: unspecified Qualified Code(s): I10 - Essential (primary) hypertension Pneumonia Qualifiers: Pneumonia type: due to unspecified organism Laterality: right Lung location: lower lobe of lung Qualified Code(s): J18.9 - Pneumonia, unspecified organism Admit Date/Time: 07/15/19 17:06 Admit Provider: Brandi Parrish
--- NOTE | 2019-07-15 11:30 | PC.NURSE ---
pt arrived rigorous with mild diaphoresis. reports UTI sx starting 2 days ago. telehealth appt with Dr Bridges yesterday, RX for levaquin and took 2 doses. reports UTI sx have subsided. tachycardic 110, afebrile at this time. reports taking tylenol [employer].
--- NOTE | 2019-07-15 11:32 | DI.RAD.S_ITS ---
PROCEDURE: XR CHEST 1V INDICATIONS: sepsis TECHNIQUE: One view of the chest was acquired. COMPARISON: Located Within [facility], , CHEST 2 VIEW, 05/18/2017, 8:30. FINDINGS: Surgical changes and devices: None. Lungs and pleura: Subtle increased opacity in right lower lung field is seen concerning for a small patchy right lower lobe infiltrates. Left lung is clear. No pleural effusions or pneumothorax. Mediastinum: Mediastinal contours appear normal. Heart size is normal. Bones and chest wall: No suspicious bony lesions. Overlying soft tissues appear unremarkable. IMPRESSION: Findings concerning for small patchy right lower lobe infiltrate versus atelectasis. Dictated by: Kenan Chiu M.D. on 07/15/2019 at 12:32 Approved by: Kenan Chiu M.D. on 07/15/2019 at 12:34
[2019-07-15 11:49] LABS: Add Manual Diff / Slide Review NO; Basophils Absolute Auto 100 /uL (0-100); Basophils Percent Auto 0.6 % (0-2); Eosinophils Absolute Auto 0 /uL (0-450); Hematocrit 50.1 % (36-46); Lymphocytes Absolute Auto 1100 /uL (1100-4500); Lymphocytes Percent Auto 8.5 % (25-40); Mean Corpuscular HGB Conc 33.9 % (30-36); Mean Corpuscular Hemoglobin 32.2 PG (26-34); Mean Corpuscular Volume 94.8 fL (80-100); Monocytes Absolute Auto 900 /uL (0-900); Monocytes Percent Auto 6.9 % (3-14); Neutrophils Absolute Auto 10400 /uL (1500-7000); Platelet Count 318 X10^3/uL (150-400); Red Blood Cell Count 5.29 X10^6/uL (4.0-5.2); White Blood Cell Count 12.3 X10^3/uL (4.5-11.0)
[2019-07-15 11:52] LABS: Magnesium 1.1 mg/dL (1.6-2.3)
[2019-07-15 11:53] LABS: Albumin 5.1 g/dL (3.5-5.0); Albumin Globulin Ratio 1.2 (1.0-2.8); Alkaline Phosphatase 122 U/L (38-126); Bilirubin Total 1.8 mg/dL (0.2-1.3); Blood Urea Nitrogen 21 mg/dL (7-17); Carbon Dioxide 21 mmol/L (22-32); Chloride 98 mmol/L (98-107); Estimated Glomerular Filt Rate 51.7 mL/min (>60); Globulin 4.1 g/dL (1.7-4.1); Glucose 179 mg/dL (80-110); Potassium 3.6 mmol/L (3.4-5.1); Sodium 138 mmol/L (137-145); Total Protein 9.2 g/dL (6.3-8.2)
[2019-07-15 11:54] LABS: Lactate (Lactic Acid) 6.7 mmol/L (0.7-2.1)
[2019-07-15 11:59] LABS: Aspartate Aminotransferase 94 IU/L (14-36)
[2019-07-15 12:00] LABS: Alanine Aminotransferase 68 IU/L (<35); HEMOLYSIS 15 (0-50)
[2019-07-15] MEDS: SODIUM CHLORIDE 0.9% 2,850 ML 950 ML IV (12:07)
[2019-07-15] MEDS: PIPERACILLIN-TAZO 4.5 GM/100 ML FROZ.PIGGY IV (12:09)
--- NOTE | 2019-07-15 12:09 | PC.NURSE ---
Pt moved into rm 2 per MD for need of central line. IVF and zosyn infusing per MAR. pt AAOx3 maintaining airway appropriately. Rigors have calmed.
[2019-07-15 12:30] LABS: Troponin I 0.595 ng/mL (0.01-0.034)
[2019-07-15 13:00] LABS: Appearance Urine UA CLEAR; Bilirubin Urine UA NEGATIVE (NEGATIVE); Color Urine UA YELLOW; Glucose Urine UA NEGATIVE (Negative); Ketones Urine UA 1+ (NEGATIVE); Leukocyte Esterase Urine UA NEGATIVE (NEGATIVE); Nitrite Urine UA NEGATIVE (Negative); Occult Blood Urine UA 3+ (Negative); Protein Urine UA 3+ (Negative); Urobilinogen Urine UA 0.2 E.U./dL (0.2)
[2019-07-15 13:14] LABS: RBC Urine 1-5/HPF (0-5/HPF)
[2019-07-15 13:15] LABS: Amorphous Sediment Urine 1+; Bacteria Urine Few (2-10); Culture Indicated Urine Specimen Cultured; Mucus Urine 1+ (Negative); Squamous Epithelial Cell Urine 0-1 /HPF (0-5/HPF); WBC Urine 5-10/HPF (0-5/HPF)
--- NOTE | 2019-07-15 13:24 | DI.ECHO.S_ITS ---
[facility]---------+ [facility] +---------+ : : [address] [place] : : : : [id number] : : : : Phone: [phone]+ Echocardiogram Report + + :Name: MATTHEW GOODEN Study Date: 07/15/2019 Height: 66 in : :[facility] Weight: 205 lb : : Gender: Female BSA: 2.0 m2 : :: 1950 Age: 69 yrs BP: 194/115 mmHg: :Reason For Study: Sepsis with elevated troponin : :Ordering Physician: Judy : :Denisse Performed By: Bren Victoria : :Referring: JUDY GOMEZ L : + + Interpretation Summary Sinus tachycardia. Normal LV size and wall thickness. Normal wall motion and LV systolic function. EF is 70-75%. Normal chamber sizes. No significant valvular abnormalities. Compared to prior study 10/04/2011 no changes have occurred. Procedure: A two-dimensional transthoracic echocardiogram with color flow and Doppler was performed. The study quality was technically adequate. Comparison is made with the echocardiogram of 10/04/2011. The patient was in sinus tachycardia with heart rates between 104-119 bpm during the exam. Left Ventricle: The left ventricle is normal in size. Left ventricular wall thickness is borderline increased. The ejection fraction is estimated to be 70-75%. Diastolic function could not be accurately assessed due to tachycardia. Right Ventricle: The right ventricle is normal in size and function. Atria: Both atria are normal in size. There is no Doppler evidence for an interatrial shunt. Mitral Valve: The mitral valve is normal in structure and function. There is mild mitral regurgitation. Aortic Valve: The aortic valve is trileaflet. There is mild aortic valve sclerosis. No aortic regurgitation is present. Tricuspid Valve: The tricuspid valve is normal in structure and function. There is trace tricuspid regurgitation. Pulmonary artery pressures cannot be estimated because of the lack of a measurable TR jet velocity but the IVC suggests a CVP of around 8 mmHg. Pulmonic Valve: The pulmonic valve is not well seen, but is grossly normal. There is no pulmonic valvular regurgitation. Great Vessels: The aortic root is not well visualized but is probably normal size. The ascending aorta is normal in size. The IVC is of normal diameter and collapses less than 50% with a sniff. This suggests a right atrial pressure of 8 mm Hg. Pericardium/ Pleura There is no pericardial effusion. There is no pleural effusion. MMode/2D Measurements & Calculations LVIDd: 4.3 cm LVOT diam: 2.1 cm LVIDs: 2.8 cm asc Aorta Diam: 3.2 cm FS: 33.4 % Ao Arch Diam (Prox Trans): 2.9 cm EPSS: 1.2 cm IVSd: 0.99 cm LVPWd: 1.1 cm LV merchant. diameter/BSA (cm/m^2): 2.1 LV sys. diameter/BSA (cm/m^2): 1.4 LA A2 area: 16.8 cm2 RA long axis: 4.3 cm LA A4 area: 16.4 cm2 RA area: 12.7 cm2 LA length (vol): 4.9 cm RA vol: 31.7 ml LA vol: 48.0 ml RA : 15.7 ml/m2 LA vol index: 23.8 ml/m2 IVC diam: 1.8 cm RVD1 (basal): 2.9 cm TAPSE: 2.3 cm Doppler Measurements & Calculations Ao V2 max: 207.8 cm/sec LVOT Max Briseida: 100.7 cm/sec Ao V2 mean: 156.4 cm/sec LV V1 max P.1 mmHg Ao max P.8 mmHg LV V1 VTI: 20.9 cm Ao mean P.5 mmHg MIKE(I,D): 2.1 cm2 Ao V2 VTI: 35.5 cm MIKE(V,D): 1.7 cm2 sev ratio: 0.59 MIKE indexed to BSA (cm^2/m^2): 1.0 MV E max briseida: 83.7 cm/sec SV(LVOT): 73.1 ml MV A max briseida: 123.0 cm/sec MV E/A: 0.68 Lat Peak E' Briseida: 6.9 cm/sec E/E' lat: 12.1 Electronically signed by: Emily Douglas M.D. on Reading Physician:07/16/2019 06:41 AM
[2019-07-15 13:39] LABS: Reflexed Lactate in 2 Hours Y
--- NOTE | 2019-07-15 13:50 | DI.CT.S_ITS ---
PROCEDURE: CT CHEST ABD PEL W CON INDICATIONS: sepsis, unclear source TECHNIQUE: After the administration of intravenous contrast, 5 mm thick sections acquired from the lung apices to the symphysis. 5 mm coronal and sagittal reformats were performed, with additional 7 mm MIP reformats through the lungs. For radiation dose reduction, the following was used: automated exposure control, adjustment of mA and/or kV according to patient size. COMPARISON: None. FINDINGS: Image quality: Excellent. CHEST: Lungs and pleura: No acute airspace opacities. No pleural effusions or pneumothorax. Central and peripheral airways appear patent and normal in caliber. Mediastinum: Heart size is normal. No pericardial effusion. No mediastinal or hilar adenopathy by size criteria. Thoracic aorta and central pulmonary arteries are normal in size. Scattered atheromatous calcifications are present within the aortic arch. Esophagus is normal in caliber. No hiatal hernia. Chest wall: No axillary or supraclavicular adenopathy by size criteria. Thyroid gland is unremarkable. ABDOMEN: Solid organs: Liver is normal in size and hypodense suggesting hepatic steatosis. Gallbladder is surgically absent. Biliary system is non dilated. Pancreas enhances normally. Spleen is normal in size and enhancement. No adrenal nodules. Kidneys demonstrate normal size and enhancement, without hydronephrosis. The low density cystic lesion is present within the lower pole of the left kidney. Peritoneum and bowel: Bowel loops demonstrate normal wall thickness and caliber. The appendix is thin walled and gas filled.There are scattered sigmoid diverticula. No evidence for diverticulitis. No free fluid or air. Nodes and vessels: No retroperitoneal or mesenteric adenopathy by size criteria. Aorta and inferior vena cava are normal in size. There are scattered atheromatous calcifications throughout the aorta and iliac arteries bilaterally. Miscellaneous: No ventral hernias. PELVIS: Genitourinary: Bladder wall thickness is normal. The uterus and ovaries are grossly unremarkable. Miscellaneous: No inguinal hernias or adenopathy. Bones: No suspicious bony lesions. No vertebral body compression fractures. IMPRESSION: 1. No acute pulmonary or abdominal findings to explain sepsis. Normal appendix. 2. Diverticulosis. No acute diverticulitis. 3. Hepatic steatosis. 4. Aortic atherosclerosis. Dictated by: Loli Newman M.D. on 07/15/2019 at 13:58 Approved by: Loli Newman M.D. on 07/15/2019 at 14:17
[2019-07-15 14:31] LABS: D Dimer 220 ng/mL (<230)
[2019-07-15 14:32] LABS: Lactate 2HR (Lactic Acid Rflx) 2.1 mmol/L (0.7-2.1)
[2019-07-15] MEDS: ASPIRIN 81 MG CHEW TAB 324 MG PO (14:34)
[2019-07-15] MEDS: SODIUM CHLORIDE 0.9% 1,000 ML 1000 ML IV (14:34)
[2019-07-15] MEDS: MAGNESIUM SULFATE 2 GM/50 ML PIGGYBACK IV (14:34)
[2019-07-15 14:35] LABS: C-Reactive Protein Quant < 0.5 mg/dL (<1.0); Lactate Dehydrogenase 697 U/L (313-618)
[2019-07-15 14:58] LABS: Creatine Kinase 995 U/L (30-135)
[2019-07-15 15:13] LABS: CKMB % Relative Index 0.5 % (1.5-5.0); Creatine Kinase MB 4.75 ng/mL (<2.37)
[2019-07-15 15:14] LABS: Troponin I 0.713 ng/mL (0.01-0.034)
[2019-07-15 15:18] LABS: Adenovirus Not Detected (Not Detect); Coronavirus 229E Not Detected (Not Detect); Coronavirus HKU1 Not Detected (Not Detect); Coronavirus NL 63 Not Detected (Not Detect); Coronavirus OC43 Not Detected (Not Detect); Human Metapneumovirus Not Detected (Not Detect); Human Rhinovirus/Enterovirus Not Detected (Not Detect); Influenza A Not Detected (Not Detect); Influenza B Not Detected (Not Detect); Parainfluenza Virus 1 Not Detected (Not Detect); Parainfluenza Virus 2 Not Detected (Not Detect)
[2019-07-15 15:19] LABS: Bordetella pertussis Not Detected (Not Detect); Chlamydophila pneumoniae Not Detected (Not Detect); Mycoplasma pneumoniae Not Detected (Not Detect); Parainfluenza Virus 3 Not Detected (Not Detect); Parainfluenza Virus 4 Not Detected (Not Detect); Respiratory Syncytial Virus Not Detected (Not Detect)
[2019-07-15] MEDS: METOPROLOL TARTRATE 5 MG/5 ML INJ IV (15:32)
[2019-07-15] MEDS: HEPARIN DRIP 25,000 UNIT/500 ML IV.SOLN 20 UNIT IV (15:32)
[2019-07-15] MEDS: HEPARIN 5,000 UNIT/ML VIAL 5000 UNIT IV (15:32)
[2019-07-15] MEDS: NITROGLYCERIN 0.4 MG SL TAB SL (15:33)
[2019-07-15] MEDS: NITROGLYCERIN OINT 1 INCH/GM OINT...G. 0.5 INCH TOP (15:33)
[2019-07-15] MEDS: SODIUM CHLORIDE 0.9% 1,000 ML 150 ML IV ×2 (16:06→19:52)
--- NOTE | 2019-07-15 16:07 | PC.NURSE ---
1500: made aware pt BP increasing to over 200 systolic. Pt remains tachycardic, diaphoretic. denies pain. repeat troponin resulted and is more elevated than the first draw. awaiting MD orders 1520: Pt given heparin bolus and started on heparin gtt. metoprolol 5mg, 1 tab 0.4mg nitro SL, and 0.5 inch nitro paste given per MAR. Bolus fluids infused and maintenance fluids started at 150ml/hr. pt given water to drink as requested. questions answered and [facility] consulted for beds.Pt resting in room in NAD .
[2019-07-15 18:31] LABS: D Dimer 252 ng/mL (<230)
[2019-07-15 18:33] LABS: Creatine Kinase 1247 U/L (30-135); Lactate Dehydrogenase 738 U/L (313-618)
[2019-07-15 18:36] LABS: C-Reactive Protein Quant < 0.5 mg/dL (<1.0)
[2019-07-15 18:53] LABS: PTT Partial Thromboplastin Tim 33 SECONDS (26.4-36.2)
--- NOTE | 2019-07-15 19:25 | P.HP_ITS ---
History of Present Illness History of Present Illness Date Patient Seen: 07/15/19 Time Patient Seen: 19:25 Date of Onset of Symptoms: 07/04/19 Chief complaint: thinks she has sepsis from a bladder infection Narrative: This 69-year-old female presents to emergency department via private vehicle for complaints of severe shaking thought to be related to an advanced urinary tract infection. Patient was felt to be septic after extensive workup in the ER and felt that ICU admission appropriate. Patient was improved condition at the time that she arrived on the ICU. Patient's Primary Care Physician is Dr. Bridges. Patient's symptoms started in mid June and she was seen by Dr. Bridges via telemedicine with complaints of GI complaints on July 03. She was having some diarrhea and upset stomach. She was having increase in belching. She was treated with omeprazole and told to come back in if her symptoms persisted. She was evaluated again on July 13 for complaints of shaking chills and rigors with low-grade fever and lower abdominal pain. It was felt that she may have a urinary tract infection she was started on Levaquin. She took the Levaquin yesterday and then again today. Her symptoms were better yesterday and then tod ay she was so weak and shaking so badly that she was really unable to walk and her had to help her to the bathroom. She phoned our office and we recommended that she go to the emergency department immediately. The patient states that her fever and diarrhea started 2 days ago. She has not had any blood in her stool she has had multiple stools a day she is not able to describe how many. She has had lower abdominal pressure but no significant pain. She has not eaten anything for 2 days but has been taking it in fluids although significantly decreased. She feels that maybe she has a UTI because her urine output is low. She is not having any significant dysuria but she is having urgency without urine output. Again she denies any blood in her stool. She has not traveled or been exposed to any unknown source. She denies any respiratory complaints. She denies any shortness of breath or cough or runny nose. She denies any chest pain or palpitations In the emergency department she was found to be hypertensive and shaking. She was given 3 L of IV fluids. Her CK and troponin came back elevated and a repeat showed these to be even more elevated. She had 2 EKGs which showed no changes. She had an echo was which was read by Dr. Douglas and was entirely normal. The case was discussed with hospitalist at [facility] and they felt that probably this was related to an untreated are partially treated urinary tract infection and showed there were no cardiac concerns at this time. There was a questionable right lower lobe pneumonia on her chest x-ray and a CT of her chest abdomen and pelvis did not really feel any pulmonary embolus any recurrence of her cancer, any pneumonia, no lung changes no evidence of inflammation of the colon. Because of the elevated CK and troponin as well as a markedly elevated blood pressure as high as 200/110 and elevated heart rate she was given 5 mg of metoprolol and 1/2 inch of nitropaste and her blood pressure came down to 140/80 and heart rate into the 90s. She was given IV Zosyn. She was started on a heparin drip. Her urine showed 2-10 bacteria 5-10 white blood cell and cultures pending. [place] 19 swab was pending. Respiratory panel is negative. GI panel is pending. Magnesium was low and this was replaced in the ER. Her initial lactate was 6.7 but after 3 L of fluid it came down to 2.1. Past medical history: 1. Two thousand three in 2003 she had esophageal cancer and was treated with radiation. She has had routine follow-up. She is a nonsmoker 2. 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 Hypertension 4. Hyperlipidemia 5. Peripheral vascular disease status post right carotid endarterectomy 6. Impaired glucose tolerance 7. Depression anxiety 8. GERD Current medications are aspirin 325 mg daily, atorvastatin 20 mg daily, levothyroxine 125 mcg daily, lisinopril 10 mg daily, Paxil 20 mg daily Allergies: No known drug allergies Past surgical history: 1. Cholecystectomy 2. Right-sided lymph node dissection 3. Right carotid endarterectomy Social history: Patient is and she lives in in a [facility]. She is originally from [place] [facility] but lived in [place] for a long time. 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 She lives at home with her . She has 2 grown children who live in [place] and 2 grandchildren her and telling him as well. Health related behavior: Patient drinks alcohol on a nightly basis Patient occasionally uses marijuana Patient walks her dogs but no specific exercise Patient does not smoke and never has on a regular basis Family history: Diabetes Mother of congestive heart failure at 94 recently Dad at age 48 of acute [place] No esophageal or gastrointestinal cancers in the family. Review of systems: Review of systems is negative other than in HPI Patient History Medical History Elevated cholesterol (Acute) History of migraine (Acute) Hypertension (Acute) IBS (irritable bowel syndrome) (Acute) Panic attacks (Acute) Throat cancer (Acute 2004) TIA (transient ischemic attack) (Acute) Surgical History History of carotid endarterectomy (Acute) Hx laparoscopic cholecystectomy (Acute) Family & Social History Social History: household members spouse Tobacco & Substance use: Smoking Status Never smoker alcohol intake current alcohol intake frequency 0-2 drinks per day Substance Use Type marijuana Meds Home Medications and Allergies Home Medications Medication Instructions Recorded Confirmed Type atorvastatin [Lipitor] 20 mg PO HS #0 12/17/10 06/10/19 History levothyroxine [Synthroid] 0.125 mg PO Q DAY #0 12/17/10 06/10/19 History lisinopril 10 mg PO BEDTIME #0 12/17/10 06/10/19 History paroxetine HCl [Paxil] 20 mg PO QDAY #0 12/17/10 06/10/19 History aspirin 325 mg PO DAILY 05/27/19 06/10/19 History Allergies Allergy/AdvReac Type Severity Reaction Status Date / Time No Known Drug Allergies Allergy Verified 06/10/19 09:12 Exam Vital Signs (past 8 hours): - 07/15/19 11:30 07/15/19 12:08 07/15/19 12:35 Temperature 98.4 F Pulse Rate 115 H 118 H 110 H Respiratory Rate 25 H 22 23 Blood Pressure Blood Pressure [Left Arm] 192/92 H 171/117 H 205/110 H Pulse Oximetry 96 97 97 07/15/19 13:04 07/15/19 13:55 07/15/19 14:04 Temperature Pulse Rate 102 H 108 H 104 H Respiratory Rate 27 H 27 H 24 Blood Pressure Blood Pressure [Left Arm] 194/91 H 215/94 H 190/93 H Pulse Oximetry 95 97 97 07/15/19 14:30 07/15/19 15:04 07/15/19 15:33 Temperature Pulse Rate 107 H 116 H 116 H Respiratory Rate 24 22 Blood Pressure 206/135 H Blood Pressure [Left Arm] 187/91 H 192/86 H Pulse Oximetry 96 96 07/15/19 15:50 07/15/19 16:00 07/15/19 17:01 Temperature Pulse Rate 113 H 87 85 Respiratory Rate 22 30 H 20 Blood Pressure Blood Pressure [Left Arm] 157/94 H 153/97 H 140/91 H Pulse Oximetry 96 96 95 07/15/19 17:30 Temperature 97.0 F L Pulse Rate 95 H Respiratory Rate 22 Blood Pressure 172/90 H Blood Pressure [Left Arm] Pulse Oximetry 95 Oxygen Delivery Method Room Air Oxygen Flow Rate 0 Narrative Exam Narrative: Patient is flushed Vital signs are stable. Blood pressure 1 60s over 90s and then comes down to 140s over 80s when patient calms down. Patient intermittently a shaking but states that it is markedly improved from earlier Patient is alert and oriented but seems flustered and sometimes slow to answer questions. HEENT shows mucous membranes dry lips dry. Pupils equal round reactive to light. Patient able to follow commands. Ears unremarkable Neck: Supple without adenopathy or thyromegaly. No bruits Chest: Decreased breath sounds bibasilar but no wheezes rhonchi or crackles Cor: Regular rate and rhythm distant S1-S2, rate in the 90s Abdomen: Positive bowel sounds, soft, nontender, protuberant, mild tenderness suprapubic No flank tenderness. No guarding. No obvious hepatosplenomegaly Extremities: No edema, pulses intact Skin no rashes but face and chest are flush Neurologic exam is nonfocal. No dysmetria finger to nose. Cranial nerves 2-12 grossly intact. Strength upper and lower extremities intact. As is sensation. Patient involuntarily shaking though intermittently Objective Labs Result Diagrams: 07/15/19 11:26 07/15/19 11:26 Labs: Laboratory Results - last 24 hr 07/15/19 07/15/19 07/15/19 11:26 11:26 11:26 WBC 12.3 H RBC 5.29 H Hgb 17.0 H Hct 50.1 H MCV 94.8 MCH 32.2 MCHC 33.9 RDW 14.0 Plt Count 318 Neut % (Auto) 84.0 H Lymph % (Auto) 8.5 L [place] % (Auto) 6.9 Eos % (Auto) 0.0 L Baso % (Auto) 0.6 Neut # (Auto) 68268 H Lymph # (Auto) 1100 [place] # (Auto) 900 Eos # (Auto) 0 Baso # (Auto) 100 APTT D-Dimer Sodium 138 Potassium 3.6 Chloride 98 Carbon Dioxide 21 L BUN 21 H Creatinine 1.05 H Estimated GFR 51.7 L BUN/Creatinine Ratio 20.0 Glucose 179 H Lactate Calcium 10.0 Magnesium Total Bilirubin 1.8 H AST 94 H ALT 68 H Alkaline Phosphatase 122 Lactate Dehydrogenase Total Creatine Kinase CK-MB (CK-2) CK-MB (CK-2) Rel Index Troponin I C-Reactive Protein Total Protein 9.2 H Albumin 5.1 H Globulin 4.1 Albumin/Globulin Ratio 1.2 Procalcitonin 0.10 Urine Color Urine Appearance Urine pH Ur Specific [place] Urine Protein Urine Glucose (UA) Urine Ketones Urine Occult Blood Urine Nitrate Urine Bilirubin Urine Urobilinogen Ur Leukocyte Esterase Urine RBC Urine WBC Ur Squamous Epith Cells Amorphous Sediment Urine Bacteria Urine Mucus Ur Culture Indicated? Chlamy pneumoniae PCR Adenovirus (PCR) B.parapertussis DNA PCR Coronavirus OC43 (PCR) Coronavirus HKU1 (PCR) Coronavirus 229E (PCR) Coronavirus NL63 (PCR) Human Metapneumovir PCR Influenza Type A (PCR) Influenza Type B (PCR) M. pneumoniae (PCR) Parainfluenza 1 (PCR) Parainfluenza 2 (PCR) Parainfluenza 3 (PCR) Parainfluenza 4 (PCR) RSV (PCR) Entero/Rhino (PCR) 07/15/19 07/15/19 07/15/19 11:26 11:26 12:54 WBC RBC Hgb Hct MCV MCH MCHC RDW Plt Count Neut % (Auto) Lymph % (Auto) [place] % (Auto) Eos % (Auto) Baso % (Auto) Neut # (Auto) Lymph # (Auto) [place] # (Auto) Eos # (Auto) Baso # (Auto) APTT D-Dimer Sodium Potassium Chloride Carbon Dioxide BUN Creatinine Estimated GFR BUN/Creatinine Ratio Glucose Lactate 6.7 H* Calcium Magnesium 1.1 L Total Bilirubin AST ALT Alkaline Phosphatase Lactate Dehydrogenase Total Creatine Kinase CK-MB (CK-2) CK-MB (CK-2) Rel Index Troponin I 0.595 H* C-Reactive Protein Total Protein Albumin Globulin Albumin/Globulin Ratio Procalcitonin Urine Color Yellow Urine Appearance Clear Urine pH 7.0 Ur Specific [place] 1.020 Urine Protein 3+ H Urine Glucose (UA) Negative Urine Ketones 1+ H Urine Occult Blood 3+ H Urine Nitrate Negative Urine Bilirubin Negative Urine Urobilinogen 0.2 Ur Leukocyte Esterase Negative Urine RBC 1-5/hpf Urine WBC 5-10/hpf H Ur Squamous Epith Cells 0-1 /hpf Amorphous Sediment 1+ Urine Bacteria Few (2-10) H Urine Mucus 1+ H Ur Culture Indicated? Specimen cultured Chlamy pneumoniae PCR Adenovirus (PCR) B.parapertussis DNA PCR Coronavirus OC43 (PCR) Coronavirus HKU1 (PCR) Coronavirus 229E (PCR) Coronavirus NL63 (PCR) Human Metapneumovir PCR Influenza Type A (PCR) Influenza Type B (PCR) M. pneumoniae (PCR) Parainfluenza 1 (PCR) Parainfluenza 2 (PCR) Parainfluenza 3 (PCR) Parainfluenza 4 (PCR) RSV (PCR) Entero/Rhino (PCR) 07/15/19 07/15/19 07/15/19 13:58 13:58 13:58 WBC RBC Hgb Hct MCV MCH MCHC RDW Plt Count Neut % (Auto) Lymph % (Auto) [place] % (Auto) Eos % (Auto) Baso % (Auto) Neut # (Auto) Lymph # (Auto) [place] # (Auto) Eos # (Auto) Baso # (Auto) APTT 33 D-Dimer 220 Sodium Potassium Chloride Carbon Dioxide BUN Creatinine Estimated GFR BUN/Creatinine Ratio Glucose Lactate Cancelled Calcium Magnesium Total Bilirubin AST ALT Alkaline Phosphatase Lactate Dehydrogenase 697 H Total Creatine Kinase CK-MB (CK-2) CK-MB (CK-2) Rel Index Troponin I C-Reactive Protein < 0.5 Total Protein Albumin Globulin Albumin/Globulin Ratio Procalcitonin Urine Color Urine Appearance Urine pH Ur Specific [place] Urine Protein Urine Glucose (UA) Urine Ketones Urine Occult Blood Urine Nitrate Urine Bilirubin Urine Urobilinogen Ur Leukocyte Esterase Urine RBC Urine WBC Ur Squamous Epith Cells Amorphous Sediment Urine Bacteria Urine Mucus Ur Culture Indicated? Chlamy pneumoniae PCR Adenovirus (PCR) B.parapertussis DNA PCR Coronavirus OC43 (PCR) Coronavirus HKU1 (PCR) Coronavirus 229E (PCR) Coronavirus NL63 (PCR) Human Metapneumovir PCR Influenza Type A (PCR) Influenza Type B (PCR) M. pneumoniae (PCR) Parainfluenza 1 (PCR) Parainfluenza 2 (PCR) Parainfluenza 3 (PCR) Parainfluenza 4 (PCR) RSV (PCR) Entero/Rhino (PCR) 07/15/19 07/15/19 07/15/19 13:58 13:58 13:58 WBC RBC Hgb Hct MCV MCH MCHC RDW Plt Count Neut % (Auto) Lymph % (Auto) [place] % (Auto) Eos % (Auto) Baso % (Auto) Neut # (Auto) Lymph # (Auto) [place] # (Auto) Eos # (Auto) Baso # (Auto) APTT D-Dimer Sodium Potassium Chloride Carbon Dioxide BUN Creatinine Estimated GFR BUN/Creatinine Ratio Glucose Lactate 2.1 Calcium Magnesium Total Bilirubin AST ALT Alkaline Phosphatase Lactate Dehydrogenase Total Creatine Kinase 995 H CK-MB (CK-2) 4.75 H CK-MB (CK-2) Rel Index 0.5 L Troponin I 0.713 H* C-Reactive Protein Total Protein Albumin Globulin Albumin/Globulin Ratio Procalcitonin Urine Color Urine Appearance Urine pH Ur Specific [place] Urine Protein Urine Glucose (UA) Urine Ketones Urine Occult Blood Urine Nitrate Urine Bilirubin Urine Urobilinogen Ur Leukocyte Esterase Urine RBC Urine WBC Ur Squamous Epith Cells Amorphous Sediment Urine Bacteria Urine Mucus Ur Culture Indicated? Chlamy pneumoniae PCR Not detected Adenovirus (PCR) Not detected B.parapertussis DNA PCR Not detected Coronavirus OC43 (PCR) Not detected Coronavirus HKU1 (PCR) Not detected Coronavirus 229E (PCR) Not detected Coronavirus NL63 (PCR) Not detected Human Metapneumovir PCR Not detected Influenza Type A (PCR) Not detected Influenza Type B (PCR) Not detected M. pneumoniae (PCR) Not detected Parainfluenza 1 (PCR) Not detected Parainfluenza 2 (PCR) Not detected Parainfluenza 3 (PCR) Not detected Parainfluenza 4 (PCR) Not detected RSV (PCR) Not detected Entero/Rhino (PCR) Not detected 07/15/19 07/15/19 18:10 18:10 WBC RBC Hgb Hct MCV MCH MCHC RDW Plt Count Neut % (Auto) Lymph % (Auto) [place] % (Auto) Eos % (Auto) Baso % (Auto) Neut # (Auto) Lymph # (Auto) [place] # (Auto) Eos # (Auto) Baso # (Auto) APTT D-Dimer 252 H Sodium Potassium Chloride Carbon Dioxide BUN Creatinine Estimated GFR BUN/Creatinine Ratio Glucose Lactate Calcium Magnesium Total Bilirubin AST ALT Alkaline Phosphatase Lactate Dehydrogenase 738 H Total Creatine Kinase 1247 H CK-MB (CK-2) CK-MB (CK-2) Rel Index Troponin I C-Reactive Protein < 0.5 Total Protein Albumin Globulin Albumin/Globulin Ratio Procalcitonin Urine Color Urine Appearance Urine pH Ur Specific [place] Urine Protein Urine Glucose (UA) Urine Ketones Urine Occult Blood Urine Nitrate Urine Bilirubin Urine Urobilinogen Ur Leukocyte Esterase Urine RBC Urine WBC Ur Squamous Epith Cells Amorphous Sediment Urine Bacteria Urine Mucus Ur Culture Indicated? Chlamy pneumoniae PCR Adenovirus (PCR) B.parapertussis DNA PCR Coronavirus OC43 (PCR) Coronavirus HKU1 (PCR) Coronavirus 229E (PCR) Coronavirus NL63 (PCR) Human Metapneumovir PCR Influenza Type A (PCR) Influenza Type B (PCR) M. pneumoniae (PCR) Parainfluenza 1 (PCR) Parainfluenza 2 (PCR) Parainfluenza 3 (PCR) Parainfluenza 4 (PCR) RSV (PCR) Entero/Rhino (PCR) Assessment & Plan Assessment & Plan narrative: 69-year-old female admitted for sepsis presumed secondary to UTI. Plan: Will continue with IV fluids as patient is dehydrated Will continue with IV Zosyn as we wait for results of urine and blood cultures as well as the [place] id 19 culture. We will do a GI panel as well. Will provide Tylenol as needed for fever Recheck labs in a.m. Assessment 2. Elevated CK and troponin of unclear etiology with normal wall function on echo entirely normal acral a normal EKG and no symptoms. I have to think this has to be related to her overall clinical picture and extreme shaking. Plan we will continue the nitro paste. We will continue the heparin drip for now. We will treat her blood pressure will continue the lisinopril. We will recheck labs in a.m.. Assessment 3. Shaking unclear etiology suspect related to sepsis versus anxiety versus possible alcohol withdrawal. Does not fit any of these entirely. Could be a combination. Plan: Will give lorazepam as needed. Will monitor response. Will continue outpatient Paxil. Will check her thyroid. Will continue IV antibiotics. Assessment number for hypertension Plan: Will treat anxiety. Will continue nitro. Will use outpatient medications. Can have metoprolol as needed for persistent elevated blood pressure over 160/100. Assessment 5. Diarrhea of unclear etiology Plan: GI panel pending. Clear liquid diet. Assessment 6. Hypo magnesemia Plan: Will replace and will continue to monitor Assessment 7. Anxiety and depression plan: Continue Paxil and will add lorazepam. Code status is full code
[2019-07-15] MEDS: ACETAMINOPHEN 325 MG TABLET 650 MG PO (19:51)
[2019-07-15] MEDS: LORazepam 2 MG/ML INJ 0.5 MG IV (19:51)
[2019-07-15] MEDS: ONDANSETRON 4 MG/2 ML INJ IV (19:51)
[2019-07-15] MEDS: PIPERACILLIN-TAZO 3.375 GM/50 ML FROZ.PIGGY IV (19:52)
[2019-07-15 19:56] LABS: Troponin I 0.791 ng/mL (0.01-0.034)
[2019-07-15 20:13] LABS: Thyroid Stimulating Hormone 2.15 uIU/mL (0.47-4.68)
[2019-07-15] MEDS: PANTOPRAZOLE 40 MG VIAL IV (20:51)
[2019-07-15 21:50] LABS: PTT Partial Thromboplastin Tim 60 SECONDS (26.4-36.2)
--- NOTE | 2019-07-15 22:19 | PC.NURSE ---
Addendum entered by Naida Gonzalez R.N. 07/15/19 22:31: 1930 Dr. Parrish updated on critical Troponin 0.791, no further orders at this time. Will continue to monitor Original Note: 1740 Pt arrived via gurney from ED, able to ambulated from gurney to bed with stand-by assistance. Pt oriented to room and call light. Bed low and locked, call light within reach, will continue to monitor.
[2019-07-16] VITALS (7 sets, daily range): BP systolic 128–164; BP diastolic 60–98; PULSE 86–102; RESP 18–24; TEMP 36.8–37.2; O2SAT 95–97
[2019-07-16] MEDS: PIPERACILLIN-TAZO 3.375 GM/50 ML FROZ.PIGGY IV ×4 (01:25→20:09)
[2019-07-16 03:45] LABS: Add Manual Diff / Slide Review NO; Basophils Absolute Auto 100 /uL (0-100); Basophils Percent Auto 0.9 % (0-2); Eosinophils Absolute Auto 100 /uL (0-450); Eosinophils Percent Auto 0.9 % (2-4); Hemoglobin 13.6 g/dL (12.0-16.0); Lymphocytes Absolute Auto 2400 /uL (1100-4500); Lymphocytes Percent Auto 23.1 % (25-40); Mean Corpuscular HGB Conc 33.2 % (30-36); Mean Corpuscular Hemoglobin 31.9 PG (26-34); Monocytes Absolute Auto 1000 /uL (0-900); Monocytes Percent Auto 9.8 % (3-14); Neutrophils Absolute Auto 6700 /uL (1500-7000); Neutrophils Percent Auto 65.3 % (50-75); Platelet Count 221 X10^3/uL (150-400); Red Blood Cell Count 4.28 X10^6/uL (4.0-5.2); Red Cell Distribution Width 14.2 % (11.6-14.8); White Blood Cell Count 10.3 X10^3/uL (4.5-11.0)
[2019-07-16 03:48] LABS: PTT Partial Thromboplastin Tim 51 SECONDS (26.4-36.2)
[2019-07-16 03:50] LABS: Alanine Aminotransferase 48 IU/L (<35); Albumin Globulin Ratio 1.3 (1.0-2.8); Alkaline Phosphatase 83 U/L (38-126); Aspartate Aminotransferase 71 IU/L (14-36); Bilirubin Total 1.3 mg/dL (0.2-1.3); Blood Urea Nitrogen 16 mg/dL (7-17); Calcium 7.9 mg/dL (8.4-10.2); Carbon Dioxide 27 mmol/L (22-32); Chloride 105 mmol/L (98-107); Creatine Kinase 1297 U/L (30-135); Estimated Glomerular Filt Rate > 60.0 mL/min (>60); Globulin 3.2 g/dL (1.7-4.1); Glucose 104 mg/dL (80-110); HEMOLYSIS < 15 (0-50); Potassium 2.9 mmol/L (3.4-5.1); Sodium 138 mmol/L (137-145); Total Protein 7.2 g/dL (6.3-8.2)
[2019-07-16 04:04] LABS: Troponin I 0.381 ng/mL (0.01-0.034)
[2019-07-16 04:05] LABS: Lactate Dehydrogenase 679 U/L (313-618)
[2019-07-16 04:06] LABS: CKMB % Relative Index 0.3 % (1.5-5.0); Creatine Kinase MB 4.08 ng/mL (<2.37); Magnesium 1.8 mg/dL (1.6-2.3)
[2019-07-16 04:11] LABS: C-Reactive Protein Quant < 0.5 mg/dL (<1.0)
[2019-07-16] MEDS: SODIUM CHLORIDE 0.9% 1,000 ML 150 ML IV ×2 (04:12→11:08)
[2019-07-16] MEDS: LEVOTHYROXINE 125 MCG TABLET PO (06:22)
[2019-07-16] MEDS: POTASSIUM CHLORIDE 20 MEQ TAB 40 MEQ PO (06:22)
--- NOTE | 2019-07-16 06:37 | PC.NURSE ---
Pyrotechnist Note-Patient is A/Ox4, denies chest pain or shortness of breath, states I actually feel better No stools available for GI panel. Heparin infusing per cardiac protocol. Dr Parrish notified in am about K+ 2.9, Mg+ 1.8, Troponin I down to 0.381, orders received. Patient has been in Droplet precautions throughout night, COVID-19 pending. No cough, fever, or shortness of breath, SpO2 >94%
[2019-07-16] MEDS: MAGNESIUM SULFATE 2 GM/50 ML PIGGYBACK IV (07:53)
[2019-07-16] MEDS: PARoxetine 20 MG TABLET PO (07:53)
[2019-07-16] MEDS: PANTOPRAZOLE 40 MG VIAL IV (07:53)
[2019-07-16] MEDS: lisinopriL 10 MG TABLET PO (07:53)
--- NOTE | 2019-07-16 09:08 | CM.DANOTE ---
DCP: Case received, EMR reviewed. Patient is on droplet precautions, therefor, information regarding social history obtained from chart. DCP assessment completed with information currently available. Patient is a 69 year old female who admitted yesterday afternoon to the care of the hospitalist team. PCP: Dr. Bridges. Payer: confirmed: Medicare/[employer]. Patient came to the hospital via private vehicle secondary to concerns from patient that she could have UTI, and sepsis. Patient came in with symptoms of tachypnea, as well as diaphoresis. She currently holds diagnosis of UTI, and is also on COVID-19 rule out. Looking at history, patient resides here in [place] with her spouse, Jaison. She has 2 children that reside in [place], and grand children, as well. She is independent, has a PHD in communications, and is originally from [place]. She also lived in [place]. P: DCP to continue to follow closely, and be available for any resources needed. Abby Prabhakar RN/Emergency Medicine Physician
[2019-07-16 11:10] LABS: PTT Partial Thromboplastin Tim 47 SECONDS (26.4-36.2)
[2019-07-16 12:48] LABS: Adenovirus F 40/41 Not Detected (Not Detect); Astrovirus Not Detected (Not Detect); Campylobacter Not Detected (Not Detect); Clostridium difficile toxin AB Not Detected (Not Detect); Cryptosporidium Not Detected (Not Detect); Cyclospora cayetanensis Not Detected (Not Detect); Entamoeba histolytica Not Detected (Not Detect); Enteroaggregative E.coli Not Detected (Not Detect); Enteropathogenic E.coli Not Detected (Not Detect); Enterotoxigenic E.coli It/st Not Detected (Not Detect); Giardia lamblia Not Detected (Not Detect); Norovirus GI/GII Not Detected (Not Detect); Plesiomonsa shigelloides Not Detected (Not Detect); Rotavirus A Not Detected (Not Detect); Salmonella Not Detected (Not Detect); Sapovirus Not Detected (Not Detect); Shiga-like toxin-prod E.coli Not Detected (Not Detect); Shigella/Enteroinvasive E.coli Not Detected (Not Detect); Vibrio Not Detected (Not Detect); Vibrio cholerae Not Detected (Not Detect); Yersinia enterocolitica Not Detected (Not Detect)
--- NOTE | 2019-07-16 14:02 | P.PN_ITS ---
Subjective Subjective Date Patient Seen: 07/16/19 Time Patient Seen: 14:03 Interval history: Patient is sitting upright in bed. She did have lorazepam last night was able to sleep for 4-5 hours. She is feeling markedly better today. She states that her shaking is markedly improved. She does admit that at home she does have a resting tremor bilateral upper extremities but it is not as significant as her shaking today. She is having diarrhea. She does have a history of irritable bowel syndrome. She is not noticing any blood are particularly foul-smelling stool. She is not having any significant abdominal pain. She is urinating much more frequently without pain gross hematuria except try. She denies any cough for shortness of breath or chest pain. She does get short of breath when she exerts herself but she is able to get up and walk to the bathroom today. She is not having any headaches. Not having any neurologic symptoms. Review of systems is negative as above Exam Vital Signs (past 8 hours): - 07/16/19 08:20 07/16/19 11:00 Temperature 99.0 F 98.2 F Pulse Rate 102 H 86 Respiratory Rate 20 24 Blood Pressure 164/96 H 142/77 H Pulse Oximetry 97 96 Oxygen Delivery Method Room Air Oxygen Flow Rate 0 Narrative Exam Narrative: Alert and oriented x3. Patient is much calmer last visible shaking today. She appears markedly better. HEENT: Mucous membranes are moist and pink. Her lips are still dry. Her face is still flushed. Neck: Supple without adenopathy, thyromegaly, jugular venous distention or bruits Chest: Clear to auscultation other than very slight expiratory wheeze. No rhonchi or crackles Cor: Regular rate and rhythm with distant S1-S2 Abdomen: Positive bowel sounds, soft, nontender, nondistended, no hepatosplenomegaly, Extremities: No edema, warm, pulses intact Neurologic exam. Patient does have a fine resting tremor bilaterally right greater than left. There is no cogwheeling. She does have 2 to 3+ clonus bilateral lower extremities otherwise DTRs 3+ at the patella 1+ Achilles. Cranial nerves 2-12 grossly intact. Bilateral upper and lower extremities normal sensation and strength Objective Labs Result Diagrams: 07/16/19 03:30 07/16/19 03:30 Labs: Laboratory Results - last 24 hr 03/07/15/19 07/15/19 13:58 13:58 13:58 WBC RBC Hgb Hct MCV MCH MCHC RDW Plt Count Neut % (Auto) Lymph % (Auto) [place] % (Auto) Eos % (Auto) Baso % (Auto) Neut # (Auto) Lymph # (Auto) [place] # (Auto) Eos # (Auto) Baso # (Auto) APTT 33 D-Dimer 220 Sodium Potassium Chloride Carbon Dioxide BUN Creatinine Estimated GFR BUN/Creatinine Ratio Glucose Lactate Cancelled Calcium Magnesium Total Bilirubin AST ALT Alkaline Phosphatase Lactate Dehydrogenase 697 H Total Creatine Kinase CK-MB (CK-2) CK-MB (CK-2) Rel Index Troponin I C-Reactive Protein < 0.5 Total Protein Albumin Globulin Albumin/Globulin Ratio TSH Stl C. cayetanensis PCR Stool Rotavirus (PCR) Stool Adenovirus (PCR) Stool Astrovirus (PCR) Stool Cryptosporidium PCR Stl E.coli Shiga Tox PCR St Sh/Enteroin Ecoli PCR Stool E coli O157 PCR Stl Enterotoxigenic E PCR Stool EPEC (PCR) Stl E. histolytica PCR Stool Giardia Lamblia PCR Stool Sapovirus (PCR) Stl P. shigelloides PCR St Y.enterocolitica PCR Stool Vibrio (PCR) Stl Vibrio cholerae PCR Stl Enteroaggr Ecoli PCR Stl Norovirus GI/GII PCR Chlamy pneumoniae PCR Adenovirus (PCR) B.parapertussis DNA PCR Campylobacter (PCR) C. difficile Tox (PCR) Coronavirus OC43 (PCR) Coronavirus HKU1 (PCR) Coronavirus 229E (PCR) Coronavirus NL63 (PCR) Human Metapneumovir PCR Influenza Type A (PCR) Influenza Type B (PCR) M. pneumoniae (PCR) Parainfluenza 1 (PCR) Parainfluenza 2 (PCR) Parainfluenza 3 (PCR) Parainfluenza 4 (PCR) RSV (PCR) Entero/Rhino (PCR) Salmonella (PCR) 07/15/19 07/15/19 07/15/19 13:58 13:58 13:58 WBC RBC Hgb Hct MCV MCH MCHC RDW Plt Count Neut % (Auto) Lymph % (Auto) [place] % (Auto) Eos % (Auto) Baso % (Auto) Neut # (Auto) Lymph # (Auto) [place] # (Auto) Eos # (Auto) Baso # (Auto) APTT D-Dimer Sodium Potassium Chloride Carbon Dioxide BUN Creatinine Estimated GFR BUN/Creatinine Ratio Glucose Lactate 2.1 Calcium Magnesium Total Bilirubin AST ALT Alkaline Phosphatase Lactate Dehydrogenase Total Creatine Kinase 995 H CK-MB (CK-2) 4.75 H CK-MB (CK-2) Rel Index 0.5 L Troponin I 0.713 H* C-Reactive Protein Total Protein Albumin Globulin Albumin/Globulin Ratio TSH Stl C. cayetanensis PCR Stool Rotavirus (PCR) Stool Adenovirus (PCR) Stool Astrovirus (PCR) Stool Cryptosporidium PCR Stl E.coli Shiga Tox PCR St Sh/Enteroin Ecoli PCR Stool E coli O157 PCR Stl Enterotoxigenic E PCR Stool EPEC (PCR) Stl E. histolytica PCR Stool Giardia Lamblia PCR Stool Sapovirus (PCR) Stl P. shigelloides PCR St Y.enterocolitica PCR Stool Vibrio (PCR) Stl Vibrio cholerae PCR Stl Enteroaggr Ecoli PCR Stl Norovirus GI/GII PCR Chlamy pneumoniae PCR Not detected Adenovirus (PCR) Not detected B.parapertussis DNA PCR Not detected Campylobacter (PCR) C. difficile Tox (PCR) Coronavirus OC43 (PCR) Not detected Coronavirus HKU1 (PCR) Not detected Coronavirus 229E (PCR) Not detected Coronavirus NL63 (PCR) Not detected Human Metapneumovir PCR Not detected Influenza Type A (PCR) Not detected Influenza Type B (PCR) Not detected M. pneumoniae (PCR) Not detected Parainfluenza 1 (PCR) Not detected Parainfluenza 2 (PCR) Not detected Parainfluenza 3 (PCR) Not detected Parainfluenza 4 (PCR) Not detected RSV (PCR) Not detected Entero/Rhino (PCR) Not detected Salmonella (PCR) 07/15/19 07/15/19 07/15/19 18:10 18:10 18:10 WBC RBC Hgb Hct MCV MCH MCHC RDW Plt Count Neut % (Auto) Lymph % (Auto) [place] % (Auto) Eos % (Auto) Baso % (Auto) Neut # (Auto) Lymph # (Auto) [place] # (Auto) Eos # (Auto) Baso # (Auto) APTT D-Dimer 252 H Sodium Potassium Chloride Carbon Dioxide BUN Creatinine Estimated GFR BUN/Creatinine Ratio Glucose Lactate Calcium Magnesium Total Bilirubin AST ALT Alkaline Phosphatase Lactate Dehydrogenase 738 H Total Creatine Kinase 1247 H CK-MB (CK-2) CK-MB (CK-2) Rel Index Troponin I 0.791 H* C-Reactive Protein < 0.5 Total Protein Albumin Globulin Albumin/Globulin Ratio TSH Stl C. cayetanensis PCR Stool Rotavirus (PCR) Stool Adenovirus (PCR) Stool Astrovirus (PCR) Stool Cryptosporidium PCR Stl E.coli Shiga Tox PCR St Sh/Enteroin Ecoli PCR Stool E coli O157 PCR Stl Enterotoxigenic E PCR Stool EPEC (PCR) Stl E. histolytica PCR Stool Giardia Lamblia PCR Stool Sapovirus (PCR) Stl P. shigelloides PCR St Y.enterocolitica PCR Stool Vibrio (PCR) Stl Vibrio cholerae PCR Stl Enteroaggr Ecoli PCR Stl Norovirus GI/GII PCR Chlamy pneumoniae PCR Adenovirus (PCR) B.parapertussis DNA PCR Campylobacter (PCR) C. difficile Tox (PCR) Coronavirus OC43 (PCR) Coronavirus HKU1 (PCR) Coronavirus 229E (PCR) Coronavirus NL63 (PCR) Human Metapneumovir PCR Influenza Type A (PCR) Influenza Type B (PCR) M. pneumoniae (PCR) Parainfluenza 1 (PCR) Parainfluenza 2 (PCR) Parainfluenza 3 (PCR) Parainfluenza 4 (PCR) RSV (PCR) Entero/Rhino (PCR) Salmonella (PCR) 07/15/19 07/15/19 07/16/19 18:10 21:30 03:30 WBC 10.3 RBC 4.28 Hgb 13.6 Hct 41.0 MCV 96.0 MCH 31.9 MCHC 33.2 RDW 14.2 Plt Count 221 Neut % (Auto) 65.3 Lymph % (Auto) 23.1 L [place] % (Auto) 9.8 Eos % (Auto) 0.9 L Baso % (Auto) 0.9 Neut # (Auto) 6700 Lymph # (Auto) 2400 [place] # (Auto) 1000 H Eos # (Auto) 100 Baso # (Auto) 100 APTT 60 H D D-Dimer Sodium Potassium Chloride Carbon Dioxide BUN Creatinine Estimated GFR BUN/Creatinine Ratio Glucose Lactate Calcium Magnesium Total Bilirubin AST ALT Alkaline Phosphatase Lactate Dehydrogenase Total Creatine Kinase CK-MB (CK-2) CK-MB (CK-2) Rel Index Troponin I C-Reactive Protein Total Protein Albumin Globulin Albumin/Globulin Ratio TSH 2.15 Stl C. cayetanensis PCR Stool Rotavirus (PCR) Stool Adenovirus (PCR) Stool Astrovirus (PCR) Stool Cryptosporidium PCR Stl E.coli Shiga Tox PCR St Sh/Enteroin Ecoli PCR Stool E coli O157 PCR Stl Enterotoxigenic E PCR Stool EPEC (PCR) Stl E. histolytica PCR Stool Giardia Lamblia PCR Stool Sapovirus (PCR) Stl P. shigelloides PCR St Y.enterocolitica PCR Stool Vibrio (PCR) Stl Vibrio cholerae PCR Stl Enteroaggr Ecoli PCR Stl Norovirus GI/GII PCR Chlamy pneumoniae PCR Adenovirus (PCR) B.parapertussis DNA PCR Campylobacter (PCR) C. difficile Tox (PCR) Coronavirus OC43 (PCR) Coronavirus HKU1 (PCR) Coronavirus 229E (PCR) Coronavirus NL63 (PCR) Human Metapneumovir PCR Influenza Type A (PCR) Influenza Type B (PCR) M. pneumoniae (PCR) Parainfluenza 1 (PCR) Parainfluenza 2 (PCR) Parainfluenza 3 (PCR) Parainfluenza 4 (PCR) RSV (PCR) Entero/Rhino (PCR) Salmonella (PCR) 07/16/19 07/16/19 07/16/19 03:30 03:30 03:30 WBC RBC Hgb Hct MCV MCH MCHC RDW Plt Count Neut % (Auto) Lymph % (Auto) [place] % (Auto) Eos % (Auto) Baso % (Auto) Neut # (Auto) Lymph # (Auto) [place] # (Auto) Eos # (Auto) Baso # (Auto) APTT D-Dimer Sodium 138 Potassium 2.9 L Chloride 105 Carbon Dioxide 27 BUN 16 Creatinine 0.89 Estimated GFR > 60.0 BUN/Creatinine Ratio 18.0 Glucose 104 Lactate 1.0 Calcium 7.9 L Magnesium 1.8 Total Bilirubin 1.3 AST 71 H ALT 48 H Alkaline Phosphatase 83 Lactate Dehydrogenase Total Creatine Kinase 1297 H CK-MB (CK-2) 4.08 H CK-MB (CK-2) Rel Index 0.3 L Troponin I 0.381 H* C-Reactive Protein < 0.5 Total Protein 7.2 Albumin 4.0 Globulin 3.2 Albumin/Globulin Ratio 1.3 TSH Stl C. cayetanensis PCR Stool Rotavirus (PCR) Stool Adenovirus (PCR) Stool Astrovirus (PCR) Stool Cryptosporidium PCR Stl E.coli Shiga Tox PCR St Sh/Enteroin Ecoli PCR Stool E coli O157 PCR Stl Enterotoxigenic E PCR Stool EPEC (PCR) Stl E. histolytica PCR Stool Giardia Lamblia PCR Stool Sapovirus (PCR) Stl P. shigelloides PCR St Y.enterocolitica PCR Stool Vibrio (PCR) Stl Vibrio cholerae PCR Stl Enteroaggr Ecoli PCR Stl Norovirus GI/GII PCR Chlamy pneumoniae PCR Adenovirus (PCR) B.parapertussis DNA PCR Campylobacter (PCR) C. difficile Tox (PCR) Coronavirus OC43 (PCR) Coronavirus HKU1 (PCR) Coronavirus 229E (PCR) Coronavirus NL63 (PCR) Human Metapneumovir PCR Influenza Type A (PCR) Influenza Type B (PCR) M. pneumoniae (PCR) Parainfluenza 1 (PCR) Parainfluenza 2 (PCR) Parainfluenza 3 (PCR) Parainfluenza 4 (PCR) RSV (PCR) Entero/Rhino (PCR) Salmonella (PCR) 07/16/19 07/16/19 07/16/19 03:30 03:30 10:43 WBC RBC Hgb Hct MCV MCH MCHC RDW Plt Count Neut % (Auto) Lymph % (Auto) [place] % (Auto) Eos % (Auto) Baso % (Auto) Neut # (Auto) Lymph # (Auto) [place] # (Auto) Eos # (Auto) Baso # (Auto) APTT 51 H D 47 H D D-Dimer Sodium Potassium Chloride Carbon Dioxide BUN Creatinine Estimated GFR BUN/Creatinine Ratio Glucose Lactate Calcium Magnesium Total Bilirubin AST ALT Alkaline Phosphatase Lactate Dehydrogenase 679 H Total Creatine Kinase CK-MB (CK-2) CK-MB (CK-2) Rel Index Troponin I C-Reactive Protein Total Protein Albumin Globulin Albumin/Globulin Ratio TSH Stl C. cayetanensis PCR Stool Rotavirus (PCR) Stool Adenovirus (PCR) Stool Astrovirus (PCR) Stool Cryptosporidium PCR Stl E.coli Shiga Tox PCR St Sh/Enteroin Ecoli PCR Stool E coli O157 PCR Stl Enterotoxigenic E PCR Stool EPEC (PCR) Stl E. histolytica PCR Stool Giardia Lamblia PCR Stool Sapovirus (PCR) Stl P. shigelloides PCR St Y.enterocolitica PCR Stool Vibrio (PCR) Stl Vibrio cholerae PCR Stl Enteroaggr Ecoli PCR Stl Norovirus GI/GII PCR Chlamy pneumoniae PCR Adenovirus (PCR) B.parapertussis DNA PCR Campylobacter (PCR) C. difficile Tox (PCR) Coronavirus OC43 (PCR) Coronavirus HKU1 (PCR) Coronavirus 229E (PCR) Coronavirus NL63 (PCR) Human Metapneumovir PCR Influenza Type A (PCR) Influenza Type B (PCR) M. pneumoniae (PCR) Parainfluenza 1 (PCR) Parainfluenza 2 (PCR) Parainfluenza 3 (PCR) Parainfluenza 4 (PCR) RSV (PCR) Entero/Rhino (PCR) Salmonella (PCR) 07/16/19 10:56 WBC RBC Hgb Hct MCV MCH MCHC RDW Plt Count Neut % (Auto) Lymph % (Auto) [place] % (Auto) Eos % (Auto) Baso % (Auto) Neut # (Auto) Lymph # (Auto) [place] # (Auto) Eos # (Auto) Baso # (Auto) APTT D-Dimer Sodium Potassium Chloride Carbon Dioxide BUN Creatinine Estimated GFR BUN/Creatinine Ratio Glucose Lactate Calcium Magnesium Total Bilirubin AST ALT Alkaline Phosphatase Lactate Dehydrogenase Total Creatine Kinase CK-MB (CK-2) CK-MB (CK-2) Rel Index Troponin I C-Reactive Protein Total Protein Albumin Globulin Albumin/Globulin Ratio TSH Stl C. cayetanensis PCR Not detected Stool Rotavirus (PCR) Not detected Stool Adenovirus (PCR) Not detected Stool Astrovirus (PCR) Not detected Stool Cryptosporidium PCR Not detected Stl E.coli Shiga Tox PCR Not detected St Sh/Enteroin Ecoli PCR Not detected Stool E coli O157 PCR Not detected Stl Enterotoxigenic E PCR Not detected Stool EPEC (PCR) Not detected Stl E. histolytica PCR Not detected Stool Giardia Lamblia PCR Not detected Stool Sapovirus (PCR) Not detected Stl P. shigelloides PCR Not detected St Y.enterocolitica PCR Not detected Stool Vibrio (PCR) Not detected Stl Vibrio cholerae PCR Not detected Stl Enteroaggr Ecoli PCR Not detected Stl Norovirus GI/GII PCR Not detected Chlamy pneumoniae PCR Adenovirus (PCR) B.parapertussis DNA PCR Campylobacter (PCR) Not detected C. difficile Tox (PCR) Not detected Coronavirus OC43 (PCR) Coronavirus HKU1 (PCR) Coronavirus 229E (PCR) Coronavirus NL63 (PCR) Human Metapneumovir PCR Influenza Type A (PCR) Influenza Type B (PCR) M. pneumoniae (PCR) Parainfluenza 1 (PCR) Parainfluenza 2 (PCR) Parainfluenza 3 (PCR) Parainfluenza 4 (PCR) RSV (PCR) Entero/Rhino (PCR) Salmonella (PCR) Not detected Assessment & Plan Assessment & Plan narrative: 50 minutes spent with patient in counseling and coordination of care 69-year-old female admitted for sepsis with urologic suspected etiology, improved with IV fluids and IV antibiotics Plan: Continue with same IV fluids 150 cc an hour. Will add 20 mEq of potassium in each L pending what results of potassium is right now. Will continue with IV Zosyn Blood in urine cultures are negative preliminary. We will wait for these. COVID-19 is still pending. I would suspect that the urine culture will and to be negative because she had 2 doses of oral Levaquin prior to admit. Assessment 2. Diarrhea of unclear etiology Plan: Panel is negative for C diff or of any other pathogen. Supportive care. Assessment 3. Rhabdomyolysis suspect from vigorous rigors Plan: Will continue with IV fluids. Will hold her atorvastatin. Will continue to monitor closely. Assessment 4. Troponinemia. Discussed this with Dr. jamin edmonds who concurs. We discussed possibility of Gram-negative bacterial toxins that can cause myocardial damage and therefore we can see a rise in them troponin though it does not indicate that there has been an acute myocardial infarction. Her EKG to she has x2 were normal and echo was entirely normal and troponin is trending down all supporting this diagnosis. However given her hyperlipidemia, hypertension and peripheral vascular disease we will do a stress Mibi as an outpatient or workup further pending the results. Because of this we will stop the heparin is stopped the nitro and will put her on 07/03 5 mg daily of aspirin. Assessment 5. Peripheral vascular disease without any acute problems Plan: Will hold atorvastatin but plan to discharge her on home with this as well will continue a full aspirin a day. Assessment 6. Anxiety stable Plan: Continue Paxil and continue lorazepam as needed Assessment 7. Hypertension still somewhat labile but improved with oral lisinopril this morning Plan: Will continue on the lisinopril. Will continue on aspirin. We will use metoprolol as needed if there is an increase in her blood pressure when we discontinue the nitro patch but I do not think there will be as it is really not effective now because it has been on for quite some time. Assessment 8. Tremors. 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 At this point we will continue to monitor. Etiology is not exact but she certainly is improving. Assessment 9. Hypothyroidism Plan: Thyroid was normal.
[2019-07-16] MEDS: KCL 20 MEQ IN NS 1,000 ML 150 MEQ IV ×2 (14:14→22:02)
[2019-07-16 15:28] LABS: BUN Creatinine Ratio 14.9 (6-22); Blood Urea Nitrogen 11 mg/dL (7-17); Calcium 7.7 mg/dL (8.4-10.2); Carbon Dioxide 24 mmol/L (22-32); Chloride 106 mmol/L (98-107); Estimated Glomerular Filt Rate > 60.0 mL/min (>60); Glucose 106 mg/dL (80-110); HEMOLYSIS < 15 (0-50); Sodium 137 mmol/L (137-145)
[2019-07-16] MEDS: POTASSIUM CHLORIDE 20 MEQ TAB PO (16:43)
[2019-07-16] MEDS: LORazepam 2 MG/ML INJ 1 MG IV (22:01)
[2019-07-17] MEDS: PIPERACILLIN-TAZO 3.375 GM/50 ML FROZ.PIGGY IV ×2 (01:12→06:26)
[2019-07-17 01:26] VITALS: BP 122/70; PULSE 84; RESP 22; TEMP 36.8; O2SAT 98
[2019-07-17] MEDS: KCL 20 MEQ IN NS 1,000 ML 150 MEQ IV (04:42)
[2019-07-17 04:54] VITALS: BP 156/87; PULSE 81; RESP 20; TEMP 36.7; O2SAT 96
[2019-07-17 04:56] LABS: Add Manual Diff / Slide Review NO; Basophils Absolute Auto 0 /uL (0-100); Basophils Percent Auto 0.4 % (0-2); Eosinophils Absolute Auto 400 /uL (0-450); Hematocrit 38.3 % (36-46); Hemoglobin 12.8 g/dL (12.0-16.0); Lymphocytes Absolute Auto 1400 /uL (1100-4500); Lymphocytes Percent Auto 12.7 % (25-40); Mean Corpuscular HGB Conc 33.3 % (30-36); Mean Corpuscular Hemoglobin 31.8 PG (26-34); Mean Corpuscular Volume 95.5 fL (80-100); Monocytes Absolute Auto 700 /uL (0-900); Monocytes Percent Auto 6.7 % (3-14); Neutrophils Absolute Auto 8400 /uL (1500-7000); Neutrophils Percent Auto 76.2 % (50-75); Platelet Count 178 X10^3/uL (150-400); Red Blood Cell Count 4.01 X10^6/uL (4.0-5.2); Red Cell Distribution Width 14.2 % (11.6-14.8)
[2019-07-17] MEDS: LORazepam 2 MG/ML INJ 0.5 MG IV (05:05)
[2019-07-17 05:06] LABS: Alanine Aminotransferase 39 IU/L (<35); Albumin 3.8 g/dL (3.5-5.0); Albumin Globulin Ratio 1.2 (1.0-2.8); Alkaline Phosphatase 76 U/L (38-126); Aspartate Aminotransferase 63 IU/L (14-36); BUN Creatinine Ratio 13.4 (6-22); Bilirubin Total 0.9 mg/dL (0.2-1.3); Blood Urea Nitrogen 11 mg/dL (7-17); Calcium 7.8 mg/dL (8.4-10.2); Carbon Dioxide 24 mmol/L (22-32); Chloride 108 mmol/L (98-107); Creatine Kinase 884 U/L (30-135); Estimated Glomerular Filt Rate > 60.0 mL/min (>60); Globulin 3.1 g/dL (1.7-4.1); Glucose 108 mg/dL (80-110); HEMOLYSIS < 15 (0-50); Magnesium 1.9 mg/dL (1.6-2.3); Potassium 3.5 mmol/L (3.4-5.1); Sodium 138 mmol/L (137-145); Total Protein 6.9 g/dL (6.3-8.2)
[2019-07-17 05:25] LABS: Troponin I 0.121 ng/mL (0.01-0.034)
[2019-07-17 05:46] LABS: CKMB % Relative Index 0.2 % (1.5-5.0); Creatine Kinase MB 2.05 ng/mL (<2.37)
[2019-07-17] MEDS: LEVOTHYROXINE 125 MCG TABLET PO (06:26)
[2019-07-17 08:00] VITALS: BP 146/88; PULSE 88; RESP 20; TEMP 36.9; O2SAT 97
[2019-07-17] MEDS: PANTOPRAZOLE 40 MG VIAL IV (08:40)
[2019-07-17] MEDS: ENOXAPARIN 40 MG/0.4 ML SYRINGE SUBCUT (08:40)
[2019-07-17] MEDS: ASPIRIN 325 MG TABLET PO (08:40)
[2019-07-17] MEDS: lisinopriL 10 MG TABLET PO (08:40)
[2019-07-17] MEDS: PARoxetine 20 MG TABLET PO (08:42)
[2019-07-17] MEDS: LORazepam 2 MG/ML INJ 1 MG IV (08:45)
--- NOTE | 2019-07-17 09:07 | PC.NURSE ---
Addendum entered by Rebecca Purvis R.N. 07/17/19 12:56: discharge to home following full discussion of d/c plan and foolow up - all questions answered to pts satisfaction Original Note: PT IS ALERT/ORIENTED X 3 AND OBVIOUS ANXIOUS- SHE HAS TREMORS BILAT UPPER EXTREMITIES AND REPORTS FEELING OUT OF CONTROL CIWA SCORE 8 AND MEDICATED WITH 1MG IV LORAZEPAM- TOLERATED DIET WELL AND LUNGS ARE DIMINISHED BUT CLEAR-VSS, AFEBRILE AND DENIES PAIN
--- NOTE | 2019-07-17 11:22 | PM.DS.1 ---
History of Present Illness History of Present Illness Chief complaint: thinks she has sepsis from a bladder infection Narrative: This 69-year-old female presents to emergency department via private vehicle for complaints of severe shaking thought to be related to an advanced urinary tract infection. Patient was felt to be septic after extensive workup in the ER and felt that ICU admission appropriate. Patient was improved condition at the time that she arrived on the ICU. Patient's Primary Care Physician is Dr. Bridges. Patient's symptoms started in mid June and she was seen by Dr. Bridges via telemedicine with complaints of GI complaints on July 03. She was having some diarrhea and upset stomach. She was having increase in belching. She was treated with omeprazole and told to come back in if her symptoms persisted. She was evaluated again on July 13 for complaints of shaking chills and rigors with low-grade fever and lower abdominal pain. It was felt that she may have a urinary tract infection she was started on Levaquin. She took the Levaquin yesterday and then again today. Her symptoms were better yesterday and then today she was so weak and shaking so badly that she was really unable to walk and her had to help her to the bathroom. She phoned our office and we recommended that she go to the emergency department immediately. The patient states that her fever and diarrhea started 2 days ago. She has not had any blood in her stool she has had multiple stools a day she is not able to describe how many. She has had lower abdominal pressure but no significant pain. She has not eaten anything for 2 days but has been taking it in fluids although significantly decreased. She feels that maybe she has a UTI because her urine output is low. She is not having any significant dysuria but she is having urgency without urine output. Again she denies any blood in her stool. She has not traveled or been exposed to any unknown source. She denies any respiratory complaints. She denies any shortness of breath or cough or runny nose. She denies any chest pain or palpitations In the emergency department she was found to be hypertensive and shaking. She was given 3 L of IV fluids. Her CK and troponin came back elevated and a repeat showed these to be even more elevated. She had 2 EKGs which showed no changes. She had an echo was which was read by Dr. Douglas and was entirely normal. The case was discussed with hospitalist at [facility] and they felt that probably this was related to an untreated are partially treated urinary tract infection and showed there were no cardiac concerns at this time. There was a questionable right lower lobe pneumonia on her chest x-ray and a CT of her chest abdomen and pelvis did not really feel any pulmonary embolus any recurrence of her cancer, any pneumonia, no lung changes no evidence of inflammation of the colon. Because of the elevated CK and troponin as well as a markedly elevated blood pressure as high as 200/110 and elevated heart rate she was given 5 mg of metoprolol and 1/2 inch of nitropaste and her blood pressure came down to 140/80 and heart rate into the 90s. She was given IV Zosyn. She was started on a heparin drip. Her urine showed 2-10 bacteria 5-10 white blood cell and cultures pending. Coving 19 swab was pending. Respiratory panel is negative. GI panel is pending. Magnesium was low and this was replaced in the ER. Her initial lactate was 6.7 but after 3 L of fluid it came down to 2.1. Past medical history: 1. Two thousand three in 2003 she had esophageal cancer and was treated with radiation. She has had routine follow-up. She is a nonsmoker 2. 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 Hypertension 4. Hyperlipidemia 5. Peripheral vascular disease status post right carotid endarterectomy 6. Impaired glucose tolerance 7. Depression anxiety 8. GERD Current medications are aspirin 325 mg daily, atorvastatin 20 mg daily, levothyroxine 125 mcg daily, lisinopril 10 mg daily, Paxil 20 mg daily Allergies: No known drug allergies Past surgical history: 1. Cholecystectomy 2. Right-sided lymph node dissection 3. Right carotid endarterectomy Social history: Patient is and she lives in in a [facility]. She is originally from [place] [facility] but lived in [place] for a long time. 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 She lives at home with her . She has 2 grown children who live in [place] and 2 grandchildren her and telling him as well. Health related behavior: Patient drinks alcohol on a nightly basis Patient occasionally uses marijuana Patient walks her dogs but no specific exercise Patient does not smoke and never has on a regular basis Family history: Diabetes Mother of congestive heart failure at 94 recently Dad at age 48 of acute KS No esophageal or gastrointestinal cancers in the family. Review of systems: Review of systems is negative other than in HPI Discharge Providers Provider Date of admission: 07/15/19 17:06 Discharge Date: 07/17/19 Primary care physician: Don Bridges MD Discharge provider: Brandi Parrish MD Summary Hospital Course Discharge Diagnosis: Sepsis syndrome secondary to urinary tract infection, partially treated as outpatient. Rhabdomyolysis secondary to dehydration and vigorous rigors Elevated creatinine kinase and troponin but no evidence of acute myocardial infarction with normal echo and normal EKG Hypertension now in control Anxiety, stable Hospital Course: Patient had extensive workup in the ER and was felt to have acute dehydration and sepsis syndrome secondary to urogenital origin. Patient was admitted to the hospital and treated with IV Zosyn. Patient was given IV fluids. Patient's consent dish in improve significantly with symptomatic improvement with decrease in rigors. She remained afebrile. She was tolerating p.o. without any difficulty. Her diarrhea had resolved. Her respiratory panel was negative. Her coded 19 is pending. She had no respiratory symptoms on admit or throughout her stay. Her GI panel was negative. She was initially treated for 24 hours with a heparin drip and a nitro patch for elevated blood pressure and concern for coronary artery disease with elevated CK and troponin. Her troponins trended down not quite to normal as did her creatinine kinase. Heparin and nitro were discontinued. It was felt that the elevated CK and troponin were due to vigorous rigors and possible D of Gram-negative toxins causing myocardial damage. Again echo was entirely normal with normal ejection fraction. Her blood pressure normalized just continuing her outpatient lisinopril. Atorvastatin was held until her CK returns to normal. She was continued on her paroxetine and did receive some lorazepam. Patient is discharged home on hospital day 3. In improved and stable condition She will have labs on Sunday She will follow-up with her primary care provider Dr. Bridges on Sunday She will be discharged home on her outpatient medications but will hold atorvastatin. She will be placed on Augmentin 875 mg twice daily for 2 weeks. I will utility appraiser 10 lorazepam to take as needed Routine instructions given 60 minutes spent with patient in discharge and coordination of care Status at Discharge Cognitive/behavioral status at discharge: oriented Functional status at discharge: independent ambulation Overall status at discharge: patient is progressing back to baseline Exam Vital Signs (past 8 hours): - 07/17/19 04:54 07/17/19 08:00 Temperature 98.1 F 98.4 F Pulse Rate 81 88 Respiratory Rate 20 20 Blood Pressure 156/87 H 146/88 H Pulse Oximetry 96 97 Oxygen Delivery Method Room Air Oxygen Flow Rate 0 Narrative Exam Narrative: Patient is alert and oriented x3. She is resting comfortably in bed. She does have some increased dyspnea when she is mobile but no significant increased respiratory effort. Appears slightly swollen in the face and hands Vital signs are stable HEENT: Mucous membranes moist and pink Neck: Supple without jugular venous distention or bruits Chest: Clear to auscultation with prolonged expiratory phase but no wheezing rhonchi or crackles Cor: Regular rate and rhythm with distant S1-S2 and heart rate in the 90s Abdomen: Obese, positive bowel sounds, soft, nontender. No hepatosplenomegaly, no obvious distension Extremities: Trace nonpitting edema pretibial Neurologic exam: Patient is tremulous. No focal neurologic deficit. Resting tremor right greater than left in the hip Objective Labs Result Diagrams: 07/17/19 04:45 07/17/19 04:45 Labs: Laboratory Results - last 24 hr 07/16/19 07/16/19 07/17/19 10:56 15:08 04:45 WBC RBC Hgb Hct MCV MCH MCHC RDW Plt Count Neut % (Auto) Lymph % (Auto) [place] % (Auto) Eos % (Auto) Baso % (Auto) Neut # (Auto) Lymph # (Auto) [place] # (Auto) Eos # (Auto) Baso # (Auto) Sodium 137 Potassium 3.0 L Chloride 106 Carbon Dioxide 24 BUN 11 Creatinine 0.74 Estimated GFR > 60.0 BUN/Creatinine Ratio 14.9 Glucose 106 Calcium 7.7 L Magnesium 1.9 Total Bilirubin AST ALT Alkaline Phosphatase Total Creatine Kinase CK-MB (CK-2) CK-MB (CK-2) Rel Index Troponin I Total Protein Albumin Globulin Albumin/Globulin Ratio Stl C. cayetanensis PCR Not detected Stool Rotavirus (PCR) Not detected Stool Adenovirus (PCR) Not detected Stool Astrovirus (PCR) Not detected Stool Cryptosporidium PCR Not detected Stl E.coli Shiga Tox PCR Not detected St Sh/Enteroin Ecoli PCR Not detected Stool E coli O157 PCR Not detected Stl Enterotoxigenic E PCR Not detected Stool EPEC (PCR) Not detected Stl E. histolytica PCR Not detected Stool Giardia Lamblia PCR Not detected Stool Sapovirus (PCR) Not detected Stl P. shigelloides PCR Not detected St Y.enterocolitica PCR Not detected Stool Vibrio (PCR) Not detected Stl Vibrio cholerae PCR Not detected Stl Enteroaggr Ecoli PCR Not detected Stl Norovirus GI/GII PCR Not detected Campylobacter (PCR) Not detected C. difficile Tox (PCR) Not detected Salmonella (PCR) Not detected 07/17/19 07/17/19 04:45 04:45 WBC 11.0 RBC 4.01 Hgb 12.8 Hct 38.3 MCV 95.5 MCH 31.8 MCHC 33.3 RDW 14.2 Plt Count 178 Neut % (Auto) 76.2 H Lymph % (Auto) 12.7 L [place] % (Auto) 6.7 Eos % (Auto) 4.0 Baso % (Auto) 0.4 Neut # (Auto) 8400 H Lymph # (Auto) 1400 [place] # (Auto) 700 Eos # (Auto) 400 Baso # (Auto) 0 Sodium 138 Potassium 3.5 Chloride 108 H Carbon Dioxide 24 BUN 11 Creatinine 0.82 Estimated GFR > 60.0 BUN/Creatinine Ratio 13.4 Glucose 108 Calcium 7.8 L Magnesium Total Bilirubin 0.9 AST 63 H ALT 39 H Alkaline Phosphatase 76 Total Creatine Kinase 884 H CK-MB (CK-2) 2.05 CK-MB (CK-2) Rel Index 0.2 L Troponin I 0.121 H* Total Protein 6.9 Albumin 3.8 Globulin 3.1 Albumin/Globulin Ratio 1.2 Stl C. cayetanensis PCR Stool Rotavirus (PCR) Stool Adenovirus (PCR) Stool Astrovirus (PCR) Stool Cryptosporidium PCR Stl E.coli Shiga Tox PCR St Sh/Enteroin Ecoli PCR Stool E coli O157 PCR Stl Enterotoxigenic E PCR Stool EPEC (PCR) Stl E. histolytica PCR Stool Giardia Lamblia PCR Stool Sapovirus (PCR) Stl P. shigelloides PCR St Y.enterocolitica PCR Stool Vibrio (PCR) Stl Vibrio cholerae PCR Stl Enteroaggr Ecoli PCR Stl Norovirus GI/GII PCR Campylobacter (PCR) C. difficile Tox (PCR) Salmonella (PCR) Discharge Plan Discharge Plan Patient Disposition: Home Discharge orders & Medications Prescriptions: Continued paroxetine HCl [Paxil] 20 MG tablet 20 mg PO QDAY Qty: 0 RF: 0 levothyroxine [Synthroid] 25 MCG tablet 0.125 mg PO Q DAY Qty: 0 RF: 0 lisinopril 10 MG tablet 10 mg PO BEDTIME Qty: 0 RF: 0 aspirin 325 mg Tablet 325 mg PO DAILY RF: 0 Discontinued atorvastatin [Lipitor] 20 MG tablet 20 mg PO HS Qty: 0 RF: 0 Follow up/Referrals: Don Bridges MD [Primary Care Provider] - Diet/Activity/Treatments Diet: Diet as Tolerated Discharge Data Primary Care Provider: Don Bridges
[2019-07-17 11:41] VITALS: BP 157/81; PULSE 101; RESP 24; TEMP 36.7; O2SAT 92
[2019-07-18 13:13] LABS: COVID19 Sendout QNS
== END 2019-07-17 12:55 | disposition home or self-care (01) | DRG 872 ==
LOC: ED 16:52 → ICU 17:44
PROVIDERS: Admitting Provider Family Medicine; Emergency Provider Emergency Medicine; PCP Family Medicine; Referring Provider Emergency Medicine; Visit Provider Family Medicine
DX: A41.9 Sepsis, unspecified organism (principal); N39.0 Urinary tract infection, site not specified; M62.82 Rhabdomyolysis; R19.7 Diarrhea, unspecified; E83.42 Hypomagnesemia; I10 Essential (primary) hypertension; E78.5 Hyperlipidemia, unspecified; E86.0 Dehydration; I73.9 Peripheral vascular disease, unspecified; F32.9 Major depressive disorder, single episode, unspecified; F41.9 Anxiety disorder, unspecified; K21.9 Gastro-esophageal reflux disease without esophagitis; E89.0 Postprocedural hypothyroidism; Z85.01 Personal history of malignant neoplasm of esophagus; R79.89 Other specified abnormal findings of blood chemistry
CPT/HCPCS: 36415; 71045; 71260; 74177; 80048; 80053; 81001; 82550; 82553; 83605; 83615; 83735; 84145; 84443; 84484; 85025; 85379; 85730; 86140; 87040; 87086; 87507; 87633; 87635; 93005; 93306; 96361; 96365; 96366; 96367; 96375; 99285; 99291; 99292; C9113; J1644; J1650; J2060; J2405; J2543; Q9967

== ENCOUNTER → 2019-10-14 08:25 | Outpatient (ROUT) | payer MEDICARE, OTHER, SELFPAY ==
[2019-07-15 17:40] VITALS: BMI 33.0
[2019-10-14 08:54] LABS: Troponin I < 0.012 ng/mL (0.01-0.034)
== END ==
PROVIDERS: PCP Family Medicine; Visit Provider Family Medicine
DX: R79.89 Other specified abnormal findings of blood chemistry (principal); R74.8 Abnormal levels of other serum enzymes
CPT/HCPCS: 84484

== ENCOUNTER 2019-12-04 15:05 | Observation (INO) | payer MEDICARE, OTHER, SELFPAY ==
[2019-07-15 17:40] VITALS: BMI 33.0
[2019-12-04] VITALS (69 sets, daily range): BP systolic 132–226; BP diastolic 56–119; PULSE 92–125; RESP 14–70; TEMP 36.6–37.1; O2SAT 92–98; BMI 33.5
--- NOTE | 2019-12-04 | DI.ECHO.S_ITS ---
[facility] +---------+ Hospital +---------+ : : [address] : : : : [id number] : : : : Phone: [phone]+ Echocardiogram Report + + :Name: MATTHEW GOODEN Study Date: 12/05/2019 Height: 66 in : :[facility] Exam Location: IS Weight: 208 lb : : Gender: Female BSA: 2.0 m2 : :: 1950 Age: 69 yrs BP: 132/104 mmHg: :Reason For Study: Rule out SD : : Performed By: Kristal Page : :Referring: JUDY RODRÍGUEZ : + + Interpretation Summary Left ventricular wall thickness is mildly increased. The left ventricle is hyperdynamic. There are no focal wall motion abnormalities. Diastolic parameters suggest a relaxation abnormality of the left ventricle, consistent with probable normal filling pressures. The echo findings are consistent with trivial dynamic left ventricular intracavitary obstruction. The peak aortic velocity is 2.6 m/sec. The velocity on today's exam could be overestimated due to a hyperdynamic left ventricle. however, the LVOT velocity is normal. Visually, the valve opens well with no evidence of stenosis. Overall there is no significant change compared to the prior echocardiogram. Procedure: A two-dimensional transthoracic echocardiogram with color flow and Doppler was performed. The study quality was technically adequate. The heart rate ranged between 89-99 bpm during the study. Left Ventricle: The left ventricle is normal in size. Left ventricular wall thickness is mildly increased. The echo findings are consistent with trivial dynamic left ventricular intracavitary obstruction. The ejection fraction is estimated to be 65-70%. The left ventricle is hyperdynamic. There are no focal wall motion abnormalities. Diastolic parameters suggest a relaxation abnormality of the left ventricle, consistent with probable normal filling pressures. Right Ventricle: The right ventricle is mildly dilated. The right ventricular systolic function is normal. Atria: The left atrium is mildly dilated. Right atrial size is normal. There is no Doppler evidence for an interatrial shunt. Mitral Valve: The mitral valve is normal in structure and function. There is trace mitral regurgitation. Aortic Valve: The aortic valve is trileaflet. The aortic valve is mildly calcified. There is mild aortic valve sclerosis. The peak aortic velocity is 2.6 m/sec. The aortic valve mean gradient is 15 mmHg. The velocity on today's exam could be overestimated due to a hyperdynamic left ventricle. however, the LVOT velocity is normal. Visually, the valve opens well with no evidence of stenosis. There is no hemodynamically significant valvular aortic stenosis. There is trace aortic regurgitation. Tricuspid Valve: The tricuspid valve is normal in structure and function. There is a trace or physiologic amount of tricuspid regurgitation. Pulmonary artery pressures cannot be estimated because of the lack of a measurable TR jet velocity. Pulmonic Valve: The pulmonic valve is not well visualized. There is a trace or physiologic amount of pulmonic regurgitation. Great Vessels: The aortic root is normal size. The ascending aorta is normal in size. The pulmonary artery is not well visualized, but is probably normal size. The IVC is of normal diameter and collapses greater than 50% with a sniff. This suggests a low right atrial pressure of 3 mm Hg. Pericardium/ Pleura There is no pericardial effusion. There is no pleural effusion. MMode/2D Measurements & Calculations LVIDd: 4.5 cm LVOT diam: 2.2 cm LVIDs: 2.4 cm Ao root diam: 2.8 cm FS: 46.8 % asc Aorta Diam: 3.2 cm EPSS: 0.11 cm IVSd: 1.1 cm LVPWd: 0.77 cm LV merchant. diameter/BSA (cm/m^2): 2.2 LV sys. diameter/BSA (cm/m^2): 1.2 LA A2 area: 24.1 cm2 RA long axis: 4.8 cm LA A4 area: 23.0 cm2 RA area: 16.6 cm2 LA length (vol): 5.6 cm RA vol: 48.4 ml LA vol: 84.5 ml RA : 23.8 ml/m2 LA vol index: 41.5 ml/m2 IVC diam: 1.2 cm RVD1 (basal): 4.2 cm TAPSE: 2.1 cm Doppler Measurements & Calculations Ao V2 max: 263.5 cm/sec LVOT Max Yusuf: 111.8 cm/sec Ao V2 mean: 180.4 cm/sec LV V1 max P.0 mmHg Ao max P.8 mmHg LV V1 VTI: 20.9 cm Ao mean P.7 mmHg MIKE(I,D): 1.6 cm2 Ao V2 VTI: 48.0 cm MIKE(V,D): 1.6 cm2 sev ratio: 0.43 MIKE indexed to BSA (cm^2/m^2): 0.79 MV E max yusuf: 76.0 cm/sec PA V2 max: 97.9 cm/sec MV A max yusuf: 100.8 cm/sec PA V2 mean: 65.8 cm/sec MV E/A: 0.75 PA mean P.0 mmHg Med Peak E' Yusuf: 5.1 cm/sec PA Accel Time: 0.08 sec E/E' med: 15.0 Lat Peak E' Yusuf: 4.8 cm/sec E/E' lat: 15.7 E/e' average: 15.3 MV dec time: 0.17 sec SV(LVOT): 77.5 ml Electronically signed by: Damon Huizar M.D. on Reading Physician:12/05/2019 04:24 PM
--- NOTE | 2019-12-04 15:14 | ED_ITS ---
HPI - Allergic Reaction <SERA Murphy - Last Filed: 12/04/19 21:16> General Chief complaint: Allergic Reaction Stated complaint: shakey, heart racing, trouble swallowing Time Seen by Provider: 12/04/19 15:13 History of Present Illness HPI narrative: 69yo with a history of HTN, presents emergency department from the walk-in clinic for difficulty swallowing and lip swelling. Patient states around noon she had sushi at a friend's house, she went to leave approximately 2 hours later and felt very shaky, had difficulty swallowing, felt diaphoretic, and felt like her lips were swollen. Patient denied history of allergies to foods in the past. She denied taking any medications for this. Patient denied any shortness of breath, dizziness, chest pain, fevers, chills, cough, wheezing, nausea, vomiting, diarrhea, or other concerns. Patient arrived, immediately evaluated patient and noted that swelling, no tongue or oropharynx swelling. Epi IM was given rapidly. Related Data Home Medications Medication Instructions Recorded Confirmed levothyroxine [Synthroid] 0.15 mg PO Q DAY #0 12/17/10 12/04/19 paroxetine HCl [Paxil] 20 mg PO QDAY #0 12/17/10 12/04/19 aspirin 325 mg PO DAILY 05/27/19 12/04/19 lisinopril-hydrochlorothiazide 20 mg PO 1-2XD 12/04/19 12/04/19 Previous Rx's Medication Instructions Recorded epinephrine [EpiPen 2-Ubaldo] 0.3 mg IM Q5-15M PRN 1 Days #2 each 12/04/19 Allergies Allergy/AdvReac Type Severity Reaction Status Date / Time No Known Drug Allergies Allergy Verified 06/10/19 09:12 Review of Systems <SERA Murphy - Last Filed: 12/04/19 21:16> Review of Systems Narrative: REVIEW OF SYSTEMS: GENERAL: Denies fever or chills. HENT: No head trauma. Reports lip swelling and difficulty swallowing, see HPI. EYES: No vision changes. CARDIOVASCULAR: No chest pain or syncope. RESPIRATORY: No shortness of breath or cough. GASTROINTESTINAL: No nausea, vomiting, diarrhea, or constipation. GENITOURINARY: No flank pain or dysuria. MUSCULOSKELETAL: No pain, weakness, or deformities. INTEGUMENTARY: No rash, lesions, or pruritus. NEURO: No numbness, tingling, memory loss, or confusion. Reports feeling shaky, see HPI. PSYCH: No behavior or mood changes. Patient History <SERA Murphy - Last Filed: 12/04/19 21:16> Medical History Elevated cholesterol (Acute) History of migraine (Acute) Hypertension (Acute) IBS (irritable bowel syndrome) (Acute) Panic attacks (Acute) Throat cancer (Acute 2004) TIA (transient ischemic attack) (Acute) Surgical History History of carotid endarterectomy (Acute) Hx laparoscopic cholecystectomy (Acute) Social History household members: spouse Smoking Status: Never smoker alcohol intake: current Smoking Status: Never smoker alcohol intake frequency: 0-2 drinks per day Substance Use Type: marijuana Exam <SERA Murphy - Last Filed: 12/04/19 21:16> Initial Vital Signs Initial Vital Signs: Vital Signs Temperature 98.8 F 12/04/19 15:16 Pulse Rate 104 H 12/04/19 15:16 Respiratory Rate 24 12/04/19 15:16 Blood Pressure 226/106 H 12/04/19 15:16 Pulse Oximetry 96 12/04/19 15:16 PHYSICAL EXAMINATION: GENERAL: Well groomed, alert, and cooperative. Answers questions promptly and appropriately. Vital signs noted. HENT: Normocephalic, atraumatic. Initially, swelling noted to upper and lower lips, oropharynx without swelling, no tongue swelling. Voice normal, no hoarseness are muffled. Upon re-evaluation, swelling dramatically improved. No drooling. EYES: Conjunctiva pink, sclera white, no periorbital swelling. CHEST: Normal to inspection and without deformities. CARDIOVASCULAR: S1 and S2 sounds normal. Tachycardia, and rhythm, no murmurs, clicks, or bruits. RESPIRATORY: Normal respiratory rate, trachea midline, airway patent. No stridor, nasal flaring or accessory muscle use. Lungs are clear in all ferreira without wheeze, rhonchi, or crackles. GASTROINTESTINAL: Bowel sounds normoactive. Abdomen is soft and non-tender. No organomegaly. MUSCULOSKELETAL: Normal gait and coordination. Equal tone and mass bilaterally. EXTREMITIES: CMS intact. Moves all extremities. SKIN: Warm, dry, soft, appropriate color for ethnicity. No lesions, rashes, or wounds. NEURO: Alert and Oriented X 3. Good coordination. No ataxia, or sensory deficits, or cognitive issues. PSYCH: Appropriate affect and mood. <Don Headley DO - Last Filed: 12/04/19 22:45> Initial Vital Signs Initial Vital Signs: Vital Signs Temperature 98.8 F 12/04/19 15:16 Pulse Rate 104 H 12/04/19 15:16 Respiratory Rate 24 12/04/19 15:16 Blood Pressure 226/106 H 12/04/19 15:16 Pulse Oximetry 96 12/04/19 15:16 Course <SERA Murphy - Last Filed: 12/04/19 21:16> Course Course Narrative: 1538: Patient states lip swelling and difficulty swelling has completely resolved. She states she still feels slightly shaky but also feels chilled at this time. Denies any nausea. 1630: Patient eating and drinking, states she is feeling much better. 1740: Upon discharge, are noted increased temperature and increased diaphoresis. Patient denies any increased swelling or difficulty swallowing. Consulted with Dr. Redmond who recommends additional dose of 25 mg of Benadryl. 1800: Consulted with Dr. Headley about lateral ST depressions, recommend cardiology. Appears patient had recent echo in June. 1849: I spoke with gravel machine operator from [facility], Dr. Mo who recommended admission and cardiac stress test. 2030: I spoke with Dr. Snyder who accepts patient for admission. Orders Ordered: ED Orders 12/04/19 15:30 Complete Blood Count AUTO DIFF Stat Comprehensive Metabolic Panel Stat Troponin & CK Cardiac Panel Stat 12/04/19 17:36 XR chest 1V Stat EKG-12 Lead Stat 12/04/19 17:54 Troponin & CK Cardiac Panel Stat Acetaminophen (Tylenol) 650 mg PO Q6HR PRN PRN Reason: Fever/Mild Pain (1-3) Aspirin (Aspirin Ec) 325 mg PO DAILY JESSICA Calcium Carbonate (Tums) 1,000 mg PO Q4HR PRN PRN Reason: Dyspepsia Dextrose/Sodium Chloride (Dextrose 5%-0.45% Ns) 1,000 mls @ 100 mls/hr IV CONT JESSICA Ibuprofen (Advil) 600 mg PO Q6HR PRN PRN Reason: Fever/Mild Pain (1-3) Levothyroxine Sodium (Synthroid) 150 mcg PO Q DAY JESSICA Morphine Sulfate (Morphine) 2 mg IV Q5MIN PRN PRN Reason: Chest Pain Naloxone HCl (Narcan) 0.2 mg IV Q2MIN PRN PRN Reason: Opiate Reversal Nitroglycerin (Nitrostat) 0.4 mg SL [id number] PRN PRN Reason: Chest Pain Non-Formulary Medication (Lisinopril-Hydrochlorothiazide) 20 mg PO 1-2XD JESSICA Ondansetron HCl (Zofran) 4 mg IV Q8HR PRN PRN Reason: Nausea And Vomiting Paroxetine HCl (Paxil) 20 mg PO QDAY JESSICA Discontinued Medications Diphenhydramine HCl (Benadryl) 25 mg IV NOW ONE Stop: 12/04/19 15:14 Last Admin: 12/04/19 15:29 Dose: 25 mg Documented by: MERRY Diphenhydramine HCl (Benadryl) 25 mg IV NOW ONE Stop: 12/04/19 17:41 Last Admin: 12/04/19 17:43 Dose: 25 mg Documented by: KERON Epinephrine HCl (Adrenalin) 0.3 mg IM NOW ONE Stop: 12/04/19 15:14 Last Admin: 12/04/19 15:29 Dose: 0.3 mg Documented by: MERRY Sodium Chloride (Normal Saline 0.9%) 1,000 mls @ 1,000 mls/hr IV BOLUS ONE Stop: 12/04/19 16:15 Last Infusion: 12/04/19 16:41 Dose: 0 mls/hr Documented by: Admin: 12/04/19 15:30 Dose: 1,000 mls/hr Documented by: MERRY Famotidine (Pepcid) 20 mg in 50 mls @ 200 mls/hr IV NOW ONE Stop: 12/04/19 15:31 Last Infusion: 12/04/19 15:52 Dose: 0 mls/hr Documented by: Admin: 12/04/19 15:27 Dose: 200 mls/hr Documented by: MERRY Sodium Chloride (Normal Saline 0.9%) 1,000 mls @ 1,000 mls/hr IV BOLUS ONE Stop: 12/04/19 18:37 Last Infusion: 12/04/19 19:20 Dose: 0 mls/hr Documented by: Admin: 12/04/19 17:43 Dose: 1,000 mls/hr Documented by: KERON Labetalol HCl (Trandate) 10 mg IV NOW ONE Stop: 12/04/19 19:47 Last Admin: 12/04/19 20:20 Dose: 10 mg Documented by: KERON Methylprednisolone (Solu-Medrol 125 Mg Vial) 125 mg IV NOW ONE Stop: 12/04/19 15:14 Last Admin: 12/04/19 15:28 Dose: 125 mg Documented by: MARY KATEONESav Vital Signs Vital signs: Vital Signs - 8 hr 12/04/19 15:16 12/04/19 15:20 12/04/19 15:21 Temperature 98.8 F Pulse Rate 104 H 114 H Respiratory Rate 24 16 18 Blood Pressure 226/106 H Pulse Oximetry 96 98 12/04/19 15:25 12/04/19 15:30 12/04/19 15:39 Temperature Pulse Rate 104 H 103 H 101 H Respiratory Rate 21 15 20 Blood Pressure 216/91 H 202/72 H 192/84 H Pulse Oximetry 96 12/04/19 15:50 12/04/19 16:00 12/04/19 16:10 Temperature Pulse Rate 101 H 104 H 104 H Respiratory Rate 17 27 H 22 Blood Pressure 190/84 H 168/56 H 154/68 H Pulse Oximetry 97 96 97 12/04/19 16:20 12/04/19 16:30 12/04/19 16:35 Temperature Pulse Rate 101 H 105 H 103 H Respiratory Rate 19 39 H Blood Pressure 153/68 H 158/70 H Pulse Oximetry 97 96 95 12/04/19 16:40 12/04/19 16:45 12/04/19 16:50 Temperature Pulse Rate 110 H 110 H 110 H Respiratory Rate 70 H 32 H 28 H Blood Pressure Pulse Oximetry 96 12/04/19 16:51 12/04/19 16:55 12/04/19 17:00 Temperature Pulse Rate 110 H 109 H 109 H Respiratory Rate 28 H 25 H 27 H Blood Pressure 202/94 H Pulse Oximetry 97 95 95 0820/20 17:01 12/04/19 17:05 12/04/19 17:10 Temperature Pulse Rate 110 H 111 H 110 H Respiratory Rate 26 H 24 25 H Blood Pressure 188/119 H 180/91 H Pulse Oximetry 95 96 96 12/04/19 17:15 12/04/19 17:20 12/04/19 17:25 Temperature Pulse Rate 111 H 111 H 111 H Respiratory Rate 23 24 Blood Pressure 193/90 H Pulse Oximetry 96 92 12/04/19 17:30 12/04/19 17:35 12/04/19 17:38 Temperature Pulse Rate 111 H 111 H 111 H Respiratory Rate 26 H 25 H 22 Blood Pressure 192/89 H 220/101 H Pulse Oximetry 96 95 96 12/04/19 17:40 12/04/19 17:45 12/04/19 17:50 Temperature Pulse Rate 112 H 111 H 107 H Respiratory Rate 35 H 31 H 26 H Blood Pressure 200/81 H Pulse Oximetry 95 95 94 12/04/19 17:51 12/04/19 17:52 12/04/19 17:55 Temperature Pulse Rate 107 H 108 H 109 H Respiratory Rate 32 H 29 H Blood Pressure 203/87 H Pulse Oximetry 94 95 95 12/04/19 18:00 12/04/19 18:05 12/04/19 18:10 Temperature Pulse Rate 106 H 109 H 110 H Respiratory Rate 26 H 25 H Blood Pressure 197/100 H Pulse Oximetry 95 12/04/19 18:15 12/04/19 18:20 12/04/19 18:25 Temperature Pulse Rate 109 H 108 H 109 H Respiratory Rate 26 H 25 H Blood Pressure 220/106 H Pulse Oximetry 96 96 95 12/04/19 18:30 12/04/19 18:35 12/04/19 18:40 Temperature Pulse Rate 108 H 108 H 125 H Respiratory Rate 33 H Blood Pressure 200/101 H Pulse Oximetry 94 95 12/04/19 18:45 12/04/19 18:50 12/04/19 18:55 Temperature Pulse Rate 111 H 109 H 109 H Respiratory Rate 26 H 25 H 26 H Blood Pressure Pulse Oximetry 97 96 95 12/04/19 19:00 12/04/19 19:05 12/04/19 19:10 Temperature Pulse Rate 109 H 110 H 108 H Respiratory Rate 26 H 25 H 26 H Blood Pressure Pulse Oximetry 95 93 95 12/04/19 19:15 12/04/19 19:20 12/04/19 19:25 Temperature Pulse Rate 109 H 108 H 106 H Respiratory Rate 26 H 24 18 Blood Pressure Pulse Oximetry 95 95 95 12/04/19 19:30 12/04/19 19:35 12/04/19 19:40 Temperature Pulse Rate 105 H 105 H 108 H Respiratory Rate 21 21 22 Blood Pressure Pulse Oximetry 95 95 96 12/04/19 19:48 12/04/19 19:49 12/04/19 19:50 Temperature Pulse Rate 116 H 116 H 113 H Respiratory Rate 19 14 Blood Pressure Pulse Oximetry 97 97 97 12/04/19 19:55 12/04/19 20:00 12/04/19 20:05 Temperature Pulse Rate 110 H 106 H 108 H Respiratory Rate 23 25 H 29 H Blood Pressure 195/98 H Pulse Oximetry 98 95 97 12/04/19 20:10 12/04/19 20:15 12/04/19 20:20 Temperature Pulse Rate 103 H 104 H 104 H Respiratory Rate 21 Blood Pressure 203/103 H 202/95 H Pulse Oximetry 95 96 93 12/04/19 20:25 12/04/19 20:30 12/04/19 20:35 Temperature Pulse Rate 100 H 99 H 96 H Respiratory Rate 38 H 36 H 27 H Blood Pressure 195/93 H Pulse Oximetry 96 96 96 12/04/19 20:38 Temperature Pulse Rate 96 H Respiratory Rate 24 Blood Pressure 195/93 H Pulse Oximetry 97 <Don Headley, DO - Last Filed: 12/04/19 22:45> Orders Ordered: ED Orders 12/04/19 15:30 Complete Blood Count AUTO DIFF Stat Comprehensive Metabolic Panel Stat Troponin & CK Cardiac Panel Stat 12/04/19 17:36 XR chest 1V Stat EKG-12 Lead Stat 12/04/19 17:54 Troponin & CK Cardiac Panel Stat Acetaminophen (Tylenol) 650 mg PO Q6HR PRN PRN Reason: Fever/Mild Pain (1-3) Aspirin (Aspirin Ec) 325 mg PO DAILY JESSICA Calcium Carbonate (Tums) 1,000 mg PO Q4HR PRN PRN Reason: Dyspepsia Dextrose/Sodium Chloride (Dextrose 5%-0.45% Ns) 1,000 mls @ 100 mls/hr IV CONT JESSICA Ibuprofen (Advil) 600 mg PO Q6HR PRN PRN Reason: Fever/Mild Pain (1-3) Levothyroxine Sodium (Synthroid) 150 mcg PO Q DAY JESSICA Morphine Sulfate (Morphine) 2 mg IV Q5MIN PRN PRN Reason: Chest Pain Naloxone HCl (Narcan) 0.2 mg IV Q2MIN PRN PRN Reason: Opiate Reversal Nitroglycerin (Nitrostat) 0.4 mg SL [id number] PRN PRN Reason: Chest Pain Non-Formulary Medication (Lisinopril-Hydrochlorothiazide) 20 mg PO 1-2XD [facility] Ondansetron HCl (Zofran) 4 mg IV Q8HR PRN PRN Reason: Nausea And Vomiting Paroxetine HCl (Paxil) 20 mg PO QDAY [facility] Discontinued Medications Diphenhydramine HCl (Benadryl) 25 mg IV NOW ONE Stop: 12/04/19 15:14 Last Admin: 12/04/19 15:29 Dose: 25 mg Documented by: MERRY Diphenhydramine HCl (Benadryl) 25 mg IV NOW ONE Stop: 12/04/19 17:41 Last Admin: 12/04/19 17:43 Dose: 25 mg Documented by: KERON Epinephrine HCl (Adrenalin) 0.3 mg IM NOW ONE Stop: 12/04/19 15:14 Last Admin: 12/04/19 15:29 Dose: 0.3 mg Documented by: MERRY Sodium Chloride (Normal Saline 0.9%) 1,000 mls @ 1,000 mls/hr IV BOLUS ONE Stop: 12/04/19 16:15 Last Infusion: 12/04/19 16:41 Dose: 0 mls/hr Documented by: Admin: 12/04/19 15:30 Dose: 1,000 mls/hr Documented by: MERRY Famotidine (Pepcid) 20 mg in 50 mls @ 200 mls/hr IV NOW ONE Stop: 12/04/19 15:31 Last Infusion: 12/04/19 15:52 Dose: 0 mls/hr Documented by: Admin: 12/04/19 15:27 Dose: 200 mls/hr Documented by: BTONER Sodium Chloride (Normal Saline 0.9%) 1,000 mls @ 1,000 mls/hr IV BOLUS ONE Stop: 12/04/19 18:37 Last Infusion: 12/04/19 19:20 Dose: 0 mls/hr Documented by: Admin: 12/04/19 17:43 Dose: 1,000 mls/hr Documented by: KERON Labetalol HCl (Trandate) 10 mg IV NOW ONE Stop: 12/04/19 19:47 Last Admin: 12/04/19 20:20 Dose: 10 mg Documented by: KERON Methylprednisolone (Solu-Medrol 125 Mg Vial) 125 mg IV NOW ONE Stop: 12/04/19 15:14 Last Admin: 12/04/19 15:28 Dose: 125 mg Documented by: MERRY Vital Signs Vital signs: Vital Signs - 8 hr 12/04/19 15:16 12/04/19 15:20 12/04/19 15:21 Temperature 98.8 F Pulse Rate 104 H 114 H Respiratory Rate 24 16 18 Blood Pressure 226/106 H Pulse Oximetry 96 98 12/04/19 15:25 12/04/19 15:30 12/04/19 15:39 Temperature Pulse Rate 104 H 103 H 101 H Respiratory Rate 21 15 20 Blood Pressure 216/91 H 202/72 H 192/84 H Pulse Oximetry 96 12/04/19 15:50 12/04/19 16:00 12/04/19 16:10 Temperature Pulse Rate 101 H 104 H 104 H Respiratory Rate 17 27 H 22 Blood Pressure 190/84 H 168/56 H 154/68 H Pulse Oximetry 97 96 97 12/04/19 16:20 12/04/19 16:30 12/04/19 16:35 Temperature Pulse Rate 101 H 105 H 103 H Respiratory Rate 19 39 H Blood Pressure 153/68 H 158/70 H Pulse Oximetry 97 96 95 12/04/19 16:40 12/04/19 16:45 12/04/19 16:50 Temperature Pulse Rate 110 H 110 H 110 H Respiratory Rate 70 H 32 H 28 H Blood Pressure Pulse Oximetry 96 12/04/19 16:51 12/04/19 16:55 12/04/19 17:00 Temperature Pulse Rate 110 H 109 H 109 H Respiratory Rate 28 H 25 H 27 H Blood Pressure 202/94 H Pulse Oximetry 97 95 95 12/04/19 17:01 12/04/19 17:05 12/04/19 17:10 Temperature Pulse Rate 110 H 111 H 110 H Respiratory Rate 26 H 24 25 H Blood Pressure 188/119 H 180/91 H Pulse Oximetry 95 96 96 12/04/19 17:15 12/04/19 17:20 12/04/19 17:25 Temperature Pulse Rate 111 H 111 H 111 H Respiratory Rate 23 24 Blood Pressure 193/90 H Pulse Oximetry 96 92 12/04/19 17:30 12/04/19 17:35 12/04/19 17:38 Temperature Pulse Rate 111 H 111 H 111 H Respiratory Rate 26 H 25 H 22 Blood Pressure 192/89 H 220/101 H Pulse Oximetry 96 95 96 12/04/19 17:40 12/04/19 17:45 12/04/19 17:50 Temperature Pulse Rate 112 H 111 H 107 H Respiratory Rate 35 H 31 H 26 H Blood Pressure 200/81 H Pulse Oximetry 95 95 94 12/04/19 17:51 12/04/19 17:52 12/04/19 17:55 Temperature Pulse Rate 107 H 108 H 109 H Respiratory Rate 32 H 29 H Blood Pressure 203/87 H Pulse Oximetry 94 95 95 12/04/19 18:00 12/04/19 18:05 12/04/19 18:10 Temperature Pulse Rate 106 H 109 H 110 H Respiratory Rate 26 H 25 H Blood Pressure 197/100 H Pulse Oximetry 95 12/04/19 18:15 12/04/19 18:20 12/04/19 18:25 Temperature Pulse Rate 109 H 108 H 109 H Respiratory Rate 26 H 25 H Blood Pressure 220/106 H Pulse Oximetry 96 96 95 12/04/19 18:30 12/04/19 18:35 12/04/19 18:40 Temperature Pulse Rate 108 H 108 H 125 H Respiratory Rate 33 H Blood Pressure 200/101 H Pulse Oximetry 94 95 12/04/19 18:45 12/04/19 18:50 12/04/19 18:55 Temperature Pulse Rate 111 H 109 H 109 H Respiratory Rate 26 H 25 H 26 H Blood Pressure Pulse Oximetry 97 96 95 12/04/19 19:00 12/04/19 19:05 12/04/19 19:10 Temperature Pulse Rate 109 H 110 H 108 H Respiratory Rate 26 H 25 H 26 H Blood Pressure Pulse Oximetry 95 93 95 12/04/19 19:15 12/04/19 19:20 12/04/19 19:25 Temperature Pulse Rate 109 H 108 H 106 H Respiratory Rate 26 H 24 18 Blood Pressure Pulse Oximetry 95 95 95 12/04/19 19:30 12/04/19 19:35 12/04/19 19:40 Temperature Pulse Rate 105 H 105 H 108 H Respiratory Rate 21 21 22 Blood Pressure Pulse Oximetry 95 95 96 12/04/19 19:48 12/04/19 19:49 12/04/19 19:50 Temperature Pulse Rate 116 H 116 H 113 H Respiratory Rate 19 14 Blood Pressure Pulse Oximetry 97 97 97 12/04/19 19:55 12/04/19 20:00 12/04/19 20:05 Temperature Pulse Rate 110 H 106 H 108 H Respiratory Rate 23 25 H 29 H Blood Pressure 195/98 H Pulse Oximetry 98 95 97 12/04/19 20:10 12/04/19 20:15 12/04/19 20:20 Temperature Pulse Rate 103 H 104 H 104 H Respiratory Rate 21 Blood Pressure 203/103 H 202/95 H Pulse Oximetry 95 96 93 12/04/19 20:25 12/04/19 20:30 12/04/19 20:35 Temperature Pulse Rate 100 H 99 H 96 H Respiratory Rate 38 H 36 H 27 H Blood Pressure 195/93 H Pulse Oximetry 96 96 96 12/04/19 20:38 Temperature Pulse Rate 96 H Respiratory Rate 24 Blood Pressure 195/93 H Pulse Oximetry 97 MDM - Allergic Reaction <SERA Murphy - Last Filed: 12/04/19 21:16> Medical Records Attestation: I reviewed the patient's medical records. Lab Data Attestation: I reviewed the patient's lab results. Result diagrams: 12/04/19 15:30 12/04/19 15:30 Labs: Lab Results 12/04/19 12/04/19 12/04/19 Range/Units 15:30 15:30 17:54 WBC 9.0 (4.5-11.0) X10^3/uL RBC 4.81 (4.0-5.2) X10^6/uL Hgb 15.4 (12.0-16.0) g/dL Hct 46.1 H (36-46) % MCV 95.8 (80-100) fL MCH 32.0 (26-34) PG MCHC 33.4 (30-36) % RDW 13.8 (11.6-14.8) % Plt Count 306 (150-400) X10^3/uL Neut % (Auto) 58.5 (50-75) % Lymph % (Auto) 28.9 (25-40) % Evangeline % (Auto) 8.8 (3-14) % Eos % (Auto) 2.6 (2-4) % Baso % (Auto) 1.2 (0-2) % Neut # (Auto) 5300 (5883-2734) /uL Lymph # (Auto) 2600 (8691-0183) /uL Evangeline # (Auto) 800 (0-900) /uL Eos # (Auto) 200 (0-450) /uL Baso # (Auto) 100 (0-100) /uL Sodium 139 (137-145) mmol/L Potassium 3.5 (3.4-5.1) mmol/L Chloride 99 (98-107) mmol/L Carbon Dioxide 28 (22-32) mmol/L BUN 15 (7-17) mg/dL Creatinine 0.77 (0.52-1.04) mg/dL Estimated GFR > 60.0 (>60) mL/min BUN/Creatinine Ratio 19.5 (6-22) Glucose 110 (80-110) mg/dL Calcium 9.7 (8.4-10.2) mg/dL Total Bilirubin 0.7 (0.2-1.3) mg/dL AST 83 H (14-36) IU/L ALT 96 H (<35) IU/L Alkaline Phosphatase 121 (38-126) U/L Total Creatine Kinase 138 H 127 (30-135) U/L CK-MB (CK-2) 0.52 0.59 (<2.37) ng/mL CK-MB (CK-2) Rel Index 0.4 L 0.5 L (1.5-5.0) % Troponin I < 0.012 0.013 (0.01-0.034) ng/mL Total Protein 9.3 H (6.3-8.2) g/dL Albumin 5.1 H (3.5-5.0) g/dL Globulin 4.2 H (1.7-4.1) g/dL Albumin/Globulin Ratio 1.2 (1.0-2.8) Imaging Data Chest x-ray: Radiologist's Impression: [address] [address] XRay Report Signed Patient: Isela Galeana MMR#: [id number] : 9Acct:[id number] Age/Sex: 69 / FDate of Service: 12/04/19 Loc: ED Accession Number: [id number] Procedure: XR chest 1V Ordering Provider: Fabby Osorio PROCEDURE: XR CHEST 1V INDICATIONS: Diaphoresis TECHNIQUE: One view of the chest was acquired. COMPARISON: [facility], [place], XR CHEST 1V, 07/15/2019, 11:51. FINDINGS: Surgical changes and devices: None. Lungs and pleura: Lungs are clear. No pleural effusions or pneumothorax. Mediastinum: Mediastinal contours appear normal. Heart size is normal. Bones and chest wall: No suspicious bony lesions. Overlying soft tissues appear unremarkable. IMPRESSION: No evidence acute pulmonary process. Dictated by: Garrett Heath M.D. on 12/04/2019 at 18:22 Approved by: Garrett Heath M.D. on 12/04/2019 at 18:22 ECG Data Interpretation: 1514: Sinus tachycardia, rate 102, NJ interval 157, QTC 415. No ST elevation or ST depression. No T-wave abnormality. EKG also viewed by Dr. Redmond per protocol. 1742: Sinus tachycardia, rate 110, NJ interval 172, QTC 473. ST depressions noted in V4 through V6, new since prior EKG. T-wave inversions noted in lead 3. EKG also viewed by Dr. Headley per protocol. MDM Narrative Medical decision making narrative: 69-year-old female presenting to the emergen cy department for what appeared to be an initial allergic reaction with lip and tongue swelling. Patient's symptoms responded probably to epinephrine, Solu- Medrol, Pepcid, and Benadryl. However, upon discharge patient had increased diaphoresis and shakiness. Additional EKG and troponin were repeated. EKG changes noted in lateral leads. Cardiology was consulted given concern for possible stress related EKG/ischemic changes. Recommended admission for observation and stress test in the morning. Patient remained hypertensive her the emergency department stay, initially no beta-blockers were administered due to recent initiation of IV. However, after 4 hours labetalol was administered which reduced tachycardia and hypertension. Patient was unsure if she took her blood pressure medication as prescribed this morning. Patient was admitted to Dr. Snyder for further workup and evaluation. <Don Headley, DO - Last Filed: 12/04/19 22:45> Lab Data Labs: Lab Results 12/04/19 12/04/19 12/04/19 Range/Units 15:30 15:30 17:54 WBC 9.0 (4.5-11.0) X10^3/uL RBC 4.81 (4.0-5.2) X10^6/uL Hgb 15.4 (12.0-16.0) g/dL Hct 46.1 H (36-46) % MCV 95.8 (80-100) fL MCH 32.0 (26-34) PG MCHC 33.4 (30-36) % RDW 13.8 (11.6-14.8) % Plt Count 306 (150-400) X10^3/uL Neut % (Auto) 58.5 (50-75) % Lymph % (Auto) 28.9 (25-40) % Evangeline % (Auto) 8.8 (3-14) % Eos % (Auto) 2.6 (2-4) % Baso % (Auto) 1.2 (0-2) % Neut # (Auto) 5300 (4407-2635) /uL Lymph # (Auto) 2600 (2749-5444) /uL Evangeline # (Auto) 800 (0-900) /uL Eos # (Auto) 200 (0-450) /uL Baso # (Auto) 100 (0-100) /uL Sodium 139 (137-145) mmol/L Potassium 3.5 (3.4-5.1) mmol/L Chloride 99 (98-107) mmol/L Carbon Dioxide 28 (22-32) mmol/L BUN 15 (7-17) mg/dL Creatinine 0.77 (0.52-1.04) mg/dL Estimated GFR > 60.0 (>60) mL/min BUN/Creatinine Ratio 19.5 (6-22) Glucose 110 (80-110) mg/dL Calcium 9.7 (8.4-10.2) mg/dL Total Bilirubin 0.7 (0.2-1.3) mg/dL AST 83 H (14-36) IU/L ALT 96 H (<35) IU/L Alkaline Phosphatase 121 (38-126) U/L Total Creatine Kinase 138 H 127 (30-135) U/L CK-MB (CK-2) 0.52 0.59 (<2.37) ng/mL CK-MB (CK-2) Rel Index 0.4 L 0.5 L (1.5-5.0) % Troponin I < 0.012 0.013 (0.01-0.034) ng/mL Total Protein 9.3 H (6.3-8.2) g/dL Albumin 5.1 H (3.5-5.0) g/dL Globulin 4.2 H (1.7-4.1) g/dL Albumin/Globulin Ratio 1.2 (1.0-2.8) Discharge Plan Departure Patient Disposition: Home Clinical Impression: Acute electrocardiogram changes Discharge Date/Time: 12/04/19 20:40 Admit Date/Time: 12/04/19 20:41 <Don Headley, DO - Last Filed: 12/04/19 22:45> Cosign ED Attending Cosignature Attestation: Dr Headley Co-Sign Statement: I was available for consultation during this patient's emergency department visit. This chart is signed by myself for administrative purposes only. I did not have direct contact with this patient during this visit. They were seen indepe ndently by the APC.
[2019-12-04] MEDS: FAMOTIDINE 20 MG/50 ML PIGGYBACK 200 MG IV (15:27)
[2019-12-04] MEDS: methylPREDNISolone 125 MG/2 ML VIAL IV (15:28)
[2019-12-04] MEDS: EPINEPHrine 1 MG/ML 0.3 MG IM (15:29)
[2019-12-04] MEDS: diphenhydrAMINE 50 MG/ML VIAL 25 MG IV ×2 (15:29→17:43)
[2019-12-04] MEDS: SODIUM CHLORIDE 0.9% 1,000 ML 1000 ML IV ×2 (15:30→17:43)
[2019-12-04 15:47] LABS: Add Manual Diff / Slide Review NO; Basophils Absolute Auto 100 /uL (0-100); Basophils Percent Auto 1.2 % (0-2); Eosinophils Absolute Auto 200 /uL (0-450); Eosinophils Percent Auto 2.6 % (2-4); Hematocrit 46.1 % (36-46); Hemoglobin 15.4 g/dL (12.0-16.0); Lymphocytes Absolute Auto 2600 /uL (1100-4500); Lymphocytes Percent Auto 28.9 % (25-40); Mean Corpuscular HGB Conc 33.4 % (30-36); Mean Corpuscular Volume 95.8 fL (80-100); Monocytes Absolute Auto 800 /uL (0-900); Monocytes Percent Auto 8.8 % (3-14); Neutrophils Absolute Auto 5300 /uL (1500-7000); Neutrophils Percent Auto 58.5 % (50-75); Platelet Count 306 X10^3/uL (150-400); Red Blood Cell Count 4.81 X10^6/uL (4.0-5.2); Red Cell Distribution Width 13.8 % (11.6-14.8)
[2019-12-04 15:56] LABS: Alanine Aminotransferase 96 IU/L (<35); Albumin 5.1 g/dL (3.5-5.0); Albumin Globulin Ratio 1.2 (1.0-2.8); Alkaline Phosphatase 121 U/L (38-126); Aspartate Aminotransferase 83 IU/L (14-36); BUN Creatinine Ratio 19.5 (6-22); Bilirubin Total 0.7 mg/dL (0.2-1.3); Blood Urea Nitrogen 15 mg/dL (7-17); Calcium 9.7 mg/dL (8.4-10.2); Carbon Dioxide 28 mmol/L (22-32); Chloride 99 mmol/L (98-107); Creatine Kinase 138 U/L (30-135); Estimated Glomerular Filt Rate > 60.0 mL/min (>60); Globulin 4.2 g/dL (1.7-4.1); Glucose 110 mg/dL (80-110); HEMOLYSIS < 15 (0-50); Potassium 3.5 mmol/L (3.4-5.1); Sodium 139 mmol/L (137-145); Total Protein 9.3 g/dL (6.3-8.2)
[2019-12-04 16:08] LABS: Troponin I < 0.012 ng/mL (0.01-0.034)
[2019-12-04 16:11] LABS: CKMB % Relative Index 0.4 % (1.5-5.0); Creatine Kinase MB 0.52 ng/mL (<2.37)
--- NOTE | 2019-12-04 16:45 | PC.NURSE ---
reports eating sushi and feeling like it was hard to swallow. Came straight to the ER.
--- NOTE | 2019-12-04 17:36 | DI.RAD.S_ITS ---
PROCEDURE: XR CHEST 1V INDICATIONS: Diaphoresis TECHNIQUE: One view of the chest was acquired. COMPARISON: [facility], CR, XR CHEST 1V, 07/15/2019, 11:51. FINDINGS: Surgical changes and devices: None. Lungs and pleura: Lungs are clear. No pleural effusions or pneumothorax. Mediastinum: Mediastinal contours appear normal. Heart size is normal. Bones and chest wall: No suspicious bony lesions. Overlying soft tissues appear unremarkable. IMPRESSION: No evidence acute pulmonary process. Dictated by: Garrett Heath M.D. on 12/04/2019 at 18:22 Approved by: Garrett Heath M.D. on 12/04/2019 at 18:22
[2019-12-04 18:07] LABS: Creatine Kinase 127 U/L (30-135)
[2019-12-04 18:20] LABS: Troponin I 0.013 ng/mL (0.01-0.034)
[2019-12-04 18:23] LABS: CKMB % Relative Index 0.5 % (1.5-5.0); Creatine Kinase MB 0.59 ng/mL (<2.37)
[2019-12-04] MEDS: LABETALOL 20 MG/4 ML SYRINGE 10 MG IV (20:20)
[2019-12-04 22:47] LABS: COVID19 -Nasal RAPID Negative (Negative)
[2019-12-04] MEDS: ACETAMINOPHEN 325 MG TABLET 650 MG PO (22:52)
[2019-12-04] MEDS: DEXTROSE 5%-0.45% NS 1,000 ML 100 ML IV (22:53)
[2019-12-04] MEDS: PARoxetine 20 MG TABLET PO (23:51)
[2019-12-05] VITALS (7 sets, daily range): BP systolic 133–158; BP diastolic 53–105; PULSE 88–100; RESP 16–24; TEMP 36.6–37.1; O2SAT 95–98
[2019-12-05 01:32] LABS: Troponin I 0.017 ng/mL (0.01-0.034)
--- NOTE | 2019-12-05 03:11 | PC.NURSE ---
Pt has no c/o of SOB or swelling of face/lips/tongue. States she feels everything has gone back to normal. No c/o of pain. States she normally has a tremor that, no one has been able to figure out. Pt is periodically diaphoretic and states she has been so on and off since she began to feel sick. On telemetry - currently NSR w/HR in low 90's. Requested pt call staff MAYNOR if she feels any SOB, CP, swelling or any symptoms similar.
[2019-12-05] MEDS: IBUPROFEN 600 MG TABLET PO (03:59)
--- NOTE | 2019-12-05 06:03 | PM.HP.1 ---
History of Present Illness History of Present Illness Date Patient Seen: 12/05/19 Time Patient Seen: 06:03 Chief complaint: shakey, heart racing, trouble swallowing Narrative: 69 year old female is admitted from the ED secondary to ST changes on EKG status post treatment for an allergic reaction. Patient had sushi around noon on day of admission at a friend's house and 2 hours later, felt shaky and diaphoretic, had swollen lips and difficulty swallowing. No previous history of food allergies. She presented immediately to the ED without taking any medications en route and was administered IM epinephrine, IV famotidine, IV Solu-Medrol, IV diphenhydramine, and a normal saline bolus upon arrival. Her swelling and difficulty swallowing resolved promptly. Vital signs upon admission to the ED included a temperature of 98.8?, pulse 104, respirations 24, blood pressure 226/106, O2 saturation 96% on room air. Workup including CBC, CMP, cardiac enzymes, chest x-ray, and EKG significant for a negative troponin at less than 0.012, a low CK-MB at 0.4, and an EKG without ST changes but notable for sinus tachycardia with a ventricular rate of 102. She denied nausea, vomiting, diarrhea, wheezing, shortness of breath, chest pain, fevers, dizziness, or cough. However, her diaphoresis and shakiness increased after treatment with the above medications and cardiac enzymes and an EKG was repeated. EKG showed sinus tachycardia again with a ventricular rate of [address] changes with depression in leads V4 to V6 and T-wave inversion in lead 3. Troponin remained normal but had a slight increase to 0.013. CK-MB was also normal but increased to 0.5. Dr. Olivares, cardiology was consulted given concern for possible stress related EKG/ischemic changes. He recommended admission for observation and stress testing in the morning. Patient does have a chronic history of hypertension and was hypertensive (200s/90-100s) throughout her 4 hour ED stay. Prior to transfer to the floor she was administered labetalol 10 mg IV x1. Her blood pressure fell to 132/104 upon transfer to the floor. Patient does take lisinopril/hydrochlorothiazide 20/25 mg PO daily in the morning and couldn't remember if she took her usual dose on day of admission. Patient also has a recent hospitalization for urosepsis and rhabdomyolysis. She had markedly elevated troponins and total CKs at that time which were thought to be related to the rhabdomyolysis and septicemia. Echo on 07/15/2019 showed an ejection fraction of 70-75% but was otherwise normal, no change since 2011. She had an outpatient persantine MIBI that was low risk. Past medical history: Hypertension Hyperlipidemia Peripheral vascular disease Hypothyroidism, post radiation Impaired fasting glucose History of throat cancer status post surgery and radiation GERD Systolic murmur Depression with anxiety Migraines Past surgical history: Tonsillectomy Cholecystectomy Neck cancer removal with lymph node dissection, 2003 Right carotid enterectomy, 1999 Family history: Father from [place] at 48, hypertension, heart disease, diabetes mellitus, hyperlipidemia Mother: Heart disease, hypertension, thyroid disease, hyperlipidemia, skin cancer Siblings: Diabetes, thyroid disease mental, Social history: to [place]. 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 . Patient History Medical History Elevated cholesterol (Acute) History of migraine (Acute) Hypertension (Acute) IBS (irritable bowel syndrome) (Acute) Panic attacks (Acute) Throat cancer (Acute 2003) TIA (transient ischemic attack) (Acute) Surgical History History of carotid endarterectomy (Acute) Hx laparoscopic cholecystectomy (Acute) Family & Social History Social History: household members spouse Prior Living Arrangements House Safety & Behavioral: Feels Safe in Current Yes Environment Been Physically Hurt or No Threatened By a Person Suicidal Ideation Description None Suicide Plan Description No Plan Tobacco & Substance use: Tobacco type cannabis/marijuana Smoking Status Never smoker alcohol intake current alcohol intake frequency 0-2 drinks per day Substance Use Type marijuana Meds Home Medications and Allergies Home Medications Medication Instructions Recorded Confirmed Type levothyroxine [Synthroid] 0.15 mg PO Q DAY #0 12/17/10 12/04/19 History paroxetine HCl [Paxil] 20 mg PO QDAY #0 12/17/10 12/04/19 History aspirin 325 mg PO DAILY 05/27/19 12/04/19 History epinephrine [EpiPen 2-Ubaldo] 0.3 mg IM Q5-15M PRN 1 Days #2 each 12/04/19 Rx lisinopril-hydrochlorothiazide 20 mg PO 1-2XD 12/04/19 12/04/19 History Allergies Allergy/AdvReac Type Severity Reaction Status Date / Time No Known Drug Allergies Allergy Verified 06/10/19 09:12 Review of Systems Review of Systems ROS: Yes All systems reviewed with the patient and are negative except as otherwise documented Exam Vital Signs (past 8 hours): - 12/05/19 00:00 12/05/19 04:10 Temperature 98.0 F 97.8 F Pulse Rate 91 H 100 H Respiratory Rate 18 24 Blood Pressure 158/105 H 156/95 H Pulse Oximetry 96 96 Oxygen Delivery Method Room Air Oxygen Flow Rate 0 Narrative Exam Narrative: GENERAL: Alert and oriented, appearing stated age, diaphoretic and shaky. HEENT: Head normocephalic/atraumatic. Pupils equal, round, and reactive to light and accomodation. Extraocular muscles intact. Tympanic membranes clear. Nasal mucosa moist, septum midline. Oral mucosa moist, no lesions. Neck soft and supple, no lymphadenopathy. LUNGS: Clear to ausculation bilaterally, no wheezes, rhonchi or rales. CV: Normal S1 and S2 with tachycardic rate and regular rhythm, no audible murmurs, rubs or gallops. ABDOMEN: Soft, non-tender, non-distended, no organomegaly. Positive bowel sounds. EXTREMITIES: No clubbing, cyanosis, or edema. NEURO: Cranial nerves II through XII grossly intact, no focal deficits. PSYCH: Alert and oriented x 3. SKIN: No concerning lesions. Objective Labs Result Diagrams: 12/05/19 06:00 12/05/19 06:00 Labs: Laboratory Results - last 24 hr 12/04/19 12/04/19 12/04/19 15:30 15:30 17:54 WBC 9.0 RBC 4.81 Hgb 15.4 Hct 46.1 H MCV 95.8 MCH 32.0 MCHC 33.4 RDW 13.8 Plt Count 306 Neut % (Auto) 58.5 Lymph % (Auto) 28.9 [place] % (Auto) 8.8 Eos % (Auto) 2.6 Baso % (Auto) 1.2 Neut # (Auto) 5300 Lymph # (Auto) 2600 [place] # (Auto) 800 Eos # (Auto) 200 Baso # (Auto) 100 Sodium 139 Potassium 3.5 Chloride 99 Carbon Dioxide 28 BUN 15 Creatinine 0.77 Estimated GFR > 60.0 BUN/Creatinine Ratio 19.5 Glucose 110 Calcium 9.7 Total Bilirubin 0.7 AST 83 H ALT 96 H Alkaline Phosphatase 121 Total Creatine Kinase 138 H 127 CK-MB (CK-2) 0.52 0.59 CK-MB (CK-2) Rel Index 0.4 L 0.5 L Troponin I < 0.012 0.013 Total Protein 9.3 H Albumin 5.1 H Globulin 4.2 H Albumin/Globulin Ratio 1.2 COVID-19 PCR 12/04/19 12/05/19 20:30 01:00 WBC RBC Hgb Hct MCV MCH MCHC RDW Plt Count Neut % (Auto) Lymph % (Auto) [place] % (Auto) Eos % (Auto) Baso % (Auto) Neut # (Auto) Lymph # (Auto) [place] # (Auto) Eos # (Auto) Baso # (Auto) Sodium Potassium Chloride Carbon Dioxide BUN Creatinine Estimated GFR BUN/Creatinine Ratio Glucose Calcium Total Bilirubin AST ALT Alkaline Phosphatase Total Creatine Kinase CK-MB (CK-2) CK-MB (CK-2) Rel Index Troponin I 0.017 Total Protein Albumin Globulin Albumin/Globulin Ratio COVID-19 PCR Negative Assessment & Plan Assessment & Plan narrative: 1. Acute ST changes, rule out [place] -EKG at 15:14 on 12/04/19 showed sinus tachycardia with a ventricular rate of 102, no ST changes. -EKG at 17:42 on 12/04/19 showed sinus tachycardia with a ventricular rate of 110, ST depression in V4 to V6, and T-wave inversion in lead 3. -Strong family history of heart disease. -Recent history of markedly elevated cardiac enzymes during inpatient hospitalization for urosepsis and rhabdomyolysis, July 2019. -Troponins normal but trending up: 0.012 --> 0.013 --> 0.014 -CK and CK-MB normal. PLAN: 12 lead EKG this morning, echo, nuclear stress test. Will continue home statin and ASA. Will also stabilize electrolytes to ensure that phosphorus is greater than 4 and magnesium is greater than 2. Patient has low values of both this morning. 2. Hypophosphatemia, acute -Goal > 4.0 PLAN: K-phos 250 mg PO qid, repeat lab in am. 3. Hypomagnesemia, acute -Goal > 2.0 PLAN: 2 mg IV magnesium now, repeat lab in a.m.. 4. Hypertension, acute on chronic, present on admission PLAN: Will increase home lisinopril/hydrochlorothiazide from 20/25 mg to 30/25 mg PO qd. 5. Hyperlipidemia, chronic PLAN: Continue atorvastatin 40 mg p.o. q.day 6. Peripheral vascular disease PLAN: Continue statin and aspirin. 7. Hypothyroidism, post radiation PLAN: Will update TSH and continue levothyroxine 150 mcg p.o. Q a.m. 8. Impaired fasting glucose, chronic PLAN: will watch closely. 9. GERD, chronic PLAN: Continue home omeprazole. 10. Depression with anxiety, chronic PLAN: Continue home paroxetine 20 mg p.o. q.day. 11. Migraines, chronic PLAN: Continue home Imitrex 50 mg p.o. x1 as needed. DVT prophylaxis: SCDs Code: Full Disposition: Anticipate 48 hour stay.
[2019-12-05 06:14] LABS: Add Manual Diff / Slide Review NO; Basophils Absolute Auto 0 /uL (0-100); Basophils Percent Auto 0.3 % (0-2); Eosinophils Absolute Auto 0 /uL (0-450); Eosinophils Percent Auto 0.3 % (2-4); Hematocrit 47.2 % (36-46); Hemoglobin 15.9 g/dL (12.0-16.0); Lymphocytes Absolute Auto 700 /uL (1100-4500); Lymphocytes Percent Auto 5.6 % (25-40); Mean Corpuscular HGB Conc 33.8 % (30-36); Mean Corpuscular Hemoglobin 32.3 PG (26-34); Mean Corpuscular Volume 95.5 fL (80-100); Monocytes Absolute Auto 600 /uL (0-900); Monocytes Percent Auto 5.1 % (3-14); Neutrophils Absolute Auto 10700 /uL (1500-7000); Neutrophils Percent Auto 88.7 % (50-75); Platelet Count 280 X10^3/uL (150-400); Red Blood Cell Count 4.94 X10^6/uL (4.0-5.2); Red Cell Distribution Width 13.8 % (11.6-14.8); White Blood Cell Count 12.1 X10^3/uL (4.5-11.0)
[2019-12-05 06:24] LABS: Alanine Aminotransferase 86 IU/L (<35); Albumin 4.8 g/dL (3.5-5.0); Albumin Globulin Ratio 1.1 (1.0-2.8); Alkaline Phosphatase 113 U/L (38-126); Aspartate Aminotransferase 69 IU/L (14-36); BUN Creatinine Ratio 18.9 (6-22); Bilirubin Total 1.2 mg/dL (0.2-1.3); Blood Urea Nitrogen 14 mg/dL (7-17); Calcium 9.3 mg/dL (8.4-10.2); Carbon Dioxide 26 mmol/L (22-32); Chloride 96 mmol/L (98-107); Estimated Glomerular Filt Rate > 60.0 mL/min (>60); Globulin 4.2 g/dL (1.7-4.1); Glucose 180 mg/dL (80-110); HEMOLYSIS < 15 (0-50); Potassium 3.7 mmol/L (3.4-5.1); Sodium 135 mmol/L (137-145)
[2019-12-05 06:36] LABS: Troponin I 0.014 ng/mL (0.01-0.034)
[2019-12-05 06:38] LABS: Magnesium 1.4 mg/dL (1.6-2.3); NT-proBNP (BNP-Adult 18+) 1040 pg/mL (<125); Phosphorous 2.1 mg/dL (2.8-4.1)
[2019-12-05 08:03] LABS: Creatine Kinase 161 U/L (30-135)
[2019-12-05] MEDS: lisinopriL 10 MG TABLET 30 MG PO (08:04)
[2019-12-05] MEDS: LEVOTHYROXINE 75 MCG TABLET 150 MCG PO (08:04)
[2019-12-05] MEDS: PARoxetine 20 MG TABLET PO (08:05)
[2019-12-05] MEDS: ASPIRIN EC 325 MG TABLET PO (08:05)
[2019-12-05] MEDS: PANTOPRAZOLE 20 MG TABLET PO (08:05)
[2019-12-05] MEDS: hydroCHLOROthiazide 25 MG TABLET PO (08:05)
[2019-12-05] MEDS: MAGNESIUM SULFATE 2 GM/50 ML PIGGYBACK IV (08:06)
[2019-12-05 08:35] LABS: TSH w/ Reflex to FT4 0.71 uIU/mL (0.47-4.68)
[2019-12-05] MEDS: PHOSPHA 250 NEUTRAL TABLET 250 MG PO ×3 (09:03→18:07)
--- NOTE | 2019-12-05 09:16 | PC.NURSE ---
Addendum entered by Deb Quinones R.N. 12/05/19 15:16: Spoke with Dr. Bridges, awaiting for ECHO results for further intervention. This am, patient diaphoretic and mildly flushed. Less diaphoretic noted as day progressed, facial flushing unchanged. No rash or hives noted. Patient continue resting in bed, up OOB to bathroom independently, No C/O chest pain, SOB, or dizziness. Report given to Terrell REYNOLDS. Addendum entered by Deb Quinones R.N. 12/05/19 12:12: Dr. Snyder at bedside this am. Echo performed at bedside at 1213. Original Note: Day shift note: Patient awake, alert, and pleasantly cooperative. Received on RA, sats 97%. No C/O chest pain, SOB, or dizziness. Speaking in full sentences, no difficulty swallowing, no drooling, or SOB noted, clear lung sounds Moe. HR between 94-103, skin warm, mild diaphoresis noted, patient states she normally sweats a lot. Sitting up in bed, in no distress. IVF infusing. NSR on Tele. SCD's in place while in bed. Calls appropriately for staff assist.
--- NOTE | 2019-12-05 12:48 | CM.DANOTE ---
Discharge Planning/Care Management DCP: assessment: case received, EMR reviewed. Discussed in Team Rounds. RN coordinator Royce stated ECHO was planned at 1100 as well as a stress test. Went to room now to check in with pt. ECHO currently in process. (spouse at bedside) RODOLFO Boyd confirms now that the stress test is not going to be done until tomorrow as far as she knows at this time. Pt is a 69 year old female who admitted last night to care of Dr. Bridgette Snyder. PCP: Dr. Bridges Payer: Medicare and [employer] Consulted: cardiology Admission status: OBS: per UR RODOLFO Rodriguez Full dx and POC are in process. Plan to see pt tomorrow when she is available and as more is know. (pt was last here in July and with a d/c to home setting and clinic followup) CM Discharge Assessment Start: 12/05/19 12:47 Freq: Status: Active Protocol: Document 12/05/19 12:47 ITV (Rec: 12/05/19 12:48 ITV [id number]) Discharge Planning Assessment Advance Directives? Yes History Provided By Medical Record Prior Living Arrangements House Household Members spouse Comment Jaison, at bedside Review Status In Process
[2019-12-05] MEDS: DEXTROSE 5%-0.45% NS 1,000 ML 100 ML IV (13:22)
--- NOTE | 2019-12-05 18:09 | P.DS_ITS ---
History of Present Illness History of Present Illness Date Patient Seen: 12/05/19 Time Patient Seen: 18:09 Chief complaint: shakey, heart racing, trouble swallowing Narrative: 69 year old female is admitted from the ED secondary to ST changes on EKG status post treatment for an allergic reaction. Patient had sushi around noon on day of admission at a friend's house and 2 hours later, felt shaky and diaphoretic, had swollen lips and difficulty swallowing. No previous history of food allergies. She presented immediately to the ED without taking any medications en route and was administered IM epinephrine, IV famotidine, IV Solu-Medrol, IV diphenhydramine, and a normal saline bolus upon arrival. Her swelling and difficulty swallowing resolved promptly. Vital signs upon admission to the ED included a temperature of 98.8?, pulse 104, respirations 24, blood pressure 226/106, O2 saturation 96% on room air. Workup including CBC, CMP, cardiac enzymes, chest x-ray, and EKG significant for a negative troponin at less than 0.012, a low CK-MB at 0.4, and an EKG without ST changes but notable for sinus tachycardia with a ventricular rate of 102. She denied nausea, vomiting, diarrhea, wheezing, shortness of breath, chest pain, fevers, dizziness, or cough. However, her diaphoresis and shakiness increased after treatment with the above medications and cardiac enzymes and an EKG was repeated. EKG showed sinus tachycardia again with a ventricular rate of [address] changes with depression in leads V4 to V6 and T-wave inversion in lead 3. Troponin remained normal but had a slight increase to 0.013. CK-MB was also normal but increased to 0.5. Dr. Olivares, cardiology was consulted given concern for possible stress related EKG/ischemic changes. He recommended admission for observation and stress testing in the morning. Patient does have a chronic history of hypertension and was hypertensive (200s/90-100s) throughout her 4 hour ED stay. Prior to transfer to the floor she was administered labetalol 10 mg IV x1. Her blood pressure fell to 132/104 upon transfer to the floor. Patient does take lisinopril/hydrochlorothiazide 20/25 mg PO daily in the morning and couldn't remember if she took her usual dose on day of admission. Patient also has a recent hospitalization for urosepsis and rhabdomyolysis. She had markedly elevated troponins and total CKs at that time which were thought to be related to the rhabdomyolysis and septicemia. Echo on 07/15/2019 showed an ejection fraction of 70-75% but was otherwise normal, no change since 2011. She had an outpatient persantine MIBI that was low risk. Discharge Providers Provider Date of admission: 12/04/19 20:41 Discharge Date: 12/05/19 Primary care physician: Don Bridges MD Consults: 12/04/19 22:22 Consult to Discharge Planning Routine Comment: Discharge provider: Amanda Snyder MD Summary Hospital Course Discharge Diagnosis: 1. Acute ST changes, rule out [place] 2. Hypophosphatemia, acute 3. Hypomagnesemia, acute 4. Hypertension, acute on chronic, present on admission 5. Hyperlipidemia, chronic 6. Peripheral vascular disease 7. Hypothyroidism, post radiation 8. Impaired fasting glucose, chronic 9. GERD, chronic 10. Depression with anxiety, chronic 11. Migraines, chronic Hospital Course: Patient was admitted for rule out VT. EKG at 15:14 on 12/04/19 showed sinus tachycardia with a ventricular rate of 102, no ST changes. EKG at 17:42 on 12/04/19 showed sinus tachycardia with a ventricular rate of 110, ST depression in V4 to V6, and T-wave inversion in lead 3. Unfortunately, patient was accidentally given a breakfast tray and so her nuclear stress test could not be completed today. Echo was done and showed no significant changes from previous study on 07/15/2019. She continued to be diaphoretic and shaky thr oughout her stay although denied chest pain. Blood pressure improved from admission, 200s/100s, but remained uncontrolled, 150/95-105. Cardiology was consulted and recommended transfer to [facility] as nuclear stress testing is not available at this facility on the weekends. Cardiac enzymes are trending up: Total CK 127 --> 161, CK-MB 0.5 --> 1.0, Troponin I 0.012 --> 0.013 --> 0.014. Phosphorus and magnesium both low, 2.1 and 2.4 respectively, currently being repleted. Dr. Ma has kindly agreed to accept her in transfer of care. Exam Vital Signs (past 8 hours): - 12/05/19 10:51 12/05/19 11:20 12/05/19 15:43 Temperature 98.7 F 98.0 F Pulse Rate 99 H 88 Respiratory Rate 16 16 Blood Pressure 149/86 H 133/53 L Pulse Oximetry 97 95 98 Oxygen Delivery Method Room Air Oxygen Flow Rate 0 Narrative Exam Narrative: GENERAL: Alert and oriented, appearing stated age, diaphoretic and shaky. HEENT: Head normocephalic/atraumatic. Pupils equal, round, and reactive to light and accomodation. Extraocular muscles intact. Tympanic membranes clear. Nasal mucosa moist, septum midline. Oral mucosa moist, no lesions. Neck soft and supple, no lymphadenopathy. LUNGS: Clear to ausculation bilaterally, no wheezes, rhonchi or rales. CV: Normal S1 and S2 with tachycardic rate and regular rhythm, no audible murmurs, rubs or gallops. ABDOMEN: Soft, non-tender, non-distended, no organomegaly. Positive bowel sounds. EXTREMITIES: No clubbing, cyanosis, or edema. NEURO: Cranial nerves II through XII grossly intact, no focal deficits. PSYCH: Alert and oriented x 3. SKIN: No concerning lesions. Objective Labs Result Diagrams: 12/05/19 06:00 12/05/19 06:00 Labs: Laboratory Results - last 24 hr 12/04/19 12/04/19 12/05/19 17:54 20:30 01:00 WBC RBC Hgb Hct MCV MCH MCHC RDW Plt Count Neut % (Auto) Lymph % (Auto) [place] % (Auto) Eos % (Auto) Baso % (Auto) Neut # (Auto) Lymph # (Auto) [place] # (Auto) Eos # (Auto) Baso # (Auto) Sodium Potassium Chloride Carbon Dioxide BUN Creatinine Estimated GFR BUN/Creatinine Ratio Glucose Calcium Phosphorus Magnesium Total Bilirubin AST ALT Alkaline Phosphatase Total Creatine Kinase CK-MB (CK-2) 0.59 CK-MB (CK-2) Rel Index 0.5 L Troponin I 0.013 0.017 NT-Pro-B Natriuret Pep Total Protein Albumin Globulin Albumin/Globulin Ratio TSH COVID-19 PCR Negative 12/05/19 12/05/19 12/05/19 06:00 06:00 06:00 WBC 12.1 H RBC 4.94 Hgb 15.9 Hct 47.2 H MCV 95.5 MCH 32.3 MCHC 33.8 RDW 13.8 Plt Count 280 Neut % (Auto) 88.7 H D Lymph % (Auto) 5.6 L D [place] % (Auto) 5.1 Eos % (Auto) 0.3 L Baso % (Auto) 0.3 Neut # (Auto) 54103 H Lymph # (Auto) 700 L [place] # (Auto) 600 Eos # (Auto) 0 Baso # (Auto) 0 Sodium Potassium Chloride Carbon Dioxide BUN Creatinine Estimated GFR BUN/Creatinine Ratio Glucose Calcium Phosphorus 2.1 L Magnesium 1.4 L Total Bilirubin AST ALT Alkaline Phosphatase Total Creatine Kinase CK-MB (CK-2) CK-MB (CK-2) Rel Index Troponin I 0.014 NT-Pro-B Natriuret Pep 1040 H Total Protein Albumin Globulin Albumin/Globulin Ratio TSH COVID-19 PCR 12/05/19 12/05/19 12/05/19 06:00 06:00 06:00 WBC RBC Hgb Hct MCV MCH MCHC RDW Plt Count Neut % (Auto) Lymph % (Auto) [place] % (Auto) Eos % (Auto) Baso % (Auto) Neut # (Auto) Lymph # (Auto) [place] # (Auto) Eos # (Auto) Baso # (Auto) Sodium 135 L Potassium 3.7 Chloride 96 L Carbon Dioxide 26 BUN 14 Creatinine 0.74 Estimated GFR > 60.0 BUN/Creatinine Ratio 18.9 Glucose 180 H Calcium 9.3 Phosphorus Magnesium Total Bilirubin 1.2 AST 69 H ALT 86 H Alkaline Phosphatase 113 Total Creatine Kinase 161 H CK-MB (CK-2) 1.60 D CK-MB (CK-2) Rel Index 1.0 L Troponin I NT-Pro-B Natriuret Pep Total Protein 9.0 H Albumin 4.8 Globulin 4.2 H Albumin/Globulin Ratio 1.1 TSH 0.71 COVID-19 PCR Discharge Plan Discharge Plan Patient Disposition: [facility] Other facility: [facility] Under care of provider: Dr. Ma Discharge orders & Medications Follow up/Referrals: Sebas Scruggs MD [Non-Staff] - Don Bridges MD [Primary Care Provider] - Discharge Health Status Precautions: [place] Diet/Activity/Treatments Diet: Nothing by Mouth Activity: bedrest Oxygen: to keep sats > 88% Discharge Data Primary Care Provider: Don Bridges Attending Provider: Amanda Snyder Admit Date/Time: 12/04/19 20:41
--- NOTE | 2019-12-05 18:48 | PC.NURSE ---
Discharge/transport to [facility]: patient left hospital via [facility] transport. Patient ambulated to transport stretcher from chair in room. Patient's IV remained in, and intact and tele monitor was removed. Report was given to rn transport and a call was placed to [facility] to give report to accepting nurse. Patient left hospital floor at 1845. Patient informed nurse there was no need to call spouse as she has already done so. Patient left in stable condition. belongings were gathered by aid and placed on bottom of transport stretcher. Patient had her purse in her lap. Medications were received from hosp. pharm and given to patient, at which she placed in her purse.
== END 2019-12-05 18:45 | disposition short-term general hospital (02) ==
LOC: ED 16:55 → AC 20:42
PROVIDERS: Admitting Provider Student in an Organized Health Care Education/Training Program; Emergency Provider Nurse Practitioner; PCP Family Medicine; Referring Provider Family Medicine; Visit Provider Student in an Organized Health Care Education/Training Program
DX: R13.10 Dysphagia, unspecified (principal); I10 Essential (primary) hypertension; E83.39 Other disorders of phosphorus metabolism; E83.42 Hypomagnesemia; E78.5 Hyperlipidemia, unspecified; I73.9 Peripheral vascular disease, unspecified; E03.9 Hypothyroidism, unspecified; K21.9 Gastro-esophageal reflux disease without esophagitis; F32.9 Major depressive disorder, single episode, unspecified; G43.909 Migraine, unspecified, not intractable, without status migrainosus; R61 Generalized hyperhidrosis; R00.0 Tachycardia, unspecified; Z11.59 Encounter for screening for other viral diseases
CPT/HCPCS: 36415; 71045; 78452; 80053; 82550; 82553; 83735; 83880; 84100; 84443; 84484; 85025; 87635; 93005; 93010; 93016; 93017; 93018; 93306; 94760; 94762; 96361; 96365; 96372; 96375; 96376; 99284; G0378; A9502; J0171; J1200; J2785; J2930

== ENCOUNTER → 2020-01-01 09:13 | Outpatient (CLI) | payer MEDICARE, OTHER, SELFPAY ==
[2019-12-04 21:58] VITALS: BMI 33.5
--- NOTE | 2020-01-01 | DI.MG.S_ITS ---
BILATERAL DIGITAL DIAGNOSTIC MAMMOGRAM 3D/2D SHORT-TERM FOLLOW-UP: 01/01/2020 CLINICAL: Patient returns for a short term follow up of the right breast, due for bilateral exam. Comparison is made to exams dated: 02/03/2019 mammogram, 06/04/2018 mammogram, and 05/14/2018 mammogram - [facility]. The tissue of both breasts is heterogeneously dense. This may lower the sensitivity of mammography. Previously described asymmetry is no longer demonstrated. No significant masses, calcifications, or other findings are seen in either breast. There has been no significant interval change. IMPRESSION: NEGATIVE Previously described asymmetry is no longer demonstrated. There is no mammographic evidence of malignancy in either breast. Annual screening mammography is recommended. This exam was interpreted at Station ID: [id number]. NOTE: For mammograms, a report in lay terms will be sent to the patient. Approximately 15% of breast malignancies will not be visualized mammographically. In the management of a palpable breast mass, a negative mammogram must not discourage biopsy of a clinically suspicious lesion. Electronically Signed By: Bal Luo M.D. jr/:01/01/2020 10:05:41 letter sent: Normal Exam ACR BI-RADS Category 1: Negative [id number]
== END ==
PROVIDERS: PCP Family Medicine; Referring Provider Family Medicine; Visit Provider Family Medicine
DX: R92.8 Other abnormal and inconclusive findings on diagnostic imaging of breast (principal)
CPT/HCPCS: 77066; G0279

== ENCOUNTER → 2020-05-11 12:44 | Outpatient (CLI) | payer MEDICARE, OTHER, SELFPAY ==
[2019-12-04 21:58] VITALS: BMI 33.5
[2020-05-11] MEDS: COVID-19 VACC #1, MRNA(MOD) 100 MCG/0.5 ML VIAL IM (12:49)
== END ==
PROVIDERS: Visit Provider Internal Medicine
DX: Z23 Encounter for immunization (principal)
CPT/HCPCS: 0011A; 91301

== ENCOUNTER → 2020-06-08 12:37 | Outpatient (CLI) | payer MEDICARE, OTHER, SELFPAY ==
[2019-12-04 21:58] VITALS: BMI 33.5
[2020-06-08] MEDS: COVID-19 VACC #2, MRNA(MOD) 100 MCG/0.5 ML VIAL IM (12:44)
== END ==
PROVIDERS: Visit Provider Internal Medicine
DX: Z23 Encounter for immunization (principal)
CPT/HCPCS: 0012A; 91301

== ENCOUNTER → 2020-06-17 07:59 | Outpatient (CLI) | payer MEDICARE, OTHER, SELFPAY ==
[2019-12-04 21:58] VITALS: BMI 33.5
--- NOTE | 2020-06-17 | DI.US.S_ITS ---
PROCEDURE: US ABDOMEN COMPLETE INDICATIONS: ABNORMAL LABS TECHNIQUE: Real-time scanning was performed of the abdominal and retroperitoneal organs, with image documentation. COMPARISON: [facility], US, ABDOMEN COMPLETE, 12/20/2010, 9:25. FINDINGS: Liver: Liver is normal in size and homogeneous in echotexture, diffusely prominently hyperechoic consistent with fatty infiltration. Gallbladder: The gallbladder is surgically absent Biliary ducts: Intrahepatic bile ducts are non-dilated. Extrahepatic bile duct caliber measures 7.4 mm. Normal is 6-7 mm or less in diameter, or 10 mm or less post-cholecystectomy. Pancreas: Visualized portions of the pancreas are sonographically normal. Spleen: Spleen is normal in size and homogeneous in echotexture. Kidneys: Kidneys are normal in size and echotexture. Right kidney measures 12.2 cm long; left kidney measures 11.0 cm long. No hydronephrosis or nephrolithiasis. No solid masses. There is a 3.7 cm cyst at the mid kidney on the left, laterally. This is simple in character. Aorta: Visualized aorta is normal in caliber at less than 3 cm. Iliacs: Proximal common iliac arteries are normal in caliber at less than 2.5 cm. IVC: Intrahepatic inferior vena cava is patent. Miscellaneous: No free abdominal fluid. IMPRESSION: Prominently fatty infiltrated liver, no evidence of liver mass. No biliary distention is seen, prior cholecystectomy. Dictated by: Robb Kerns M.D. on 06/17/2020 at 11:31 Approved by: Robb Kerns M.D. on 06/17/2020 at 11:34
== END ==
PROVIDERS: Referring Provider Nurse Practitioner Family; Visit Provider Nurse Practitioner Family
DX: R74.8 Abnormal levels of other serum enzymes (principal); K76.0 Fatty (change of) liver, not elsewhere classified; Z90.49 Acquired absence of other specified parts of digestive tract
CPT/HCPCS: 76700

== ENCOUNTER → 2021-03-02 10:03 | Outpatient (CLI) | payer MEDICARE, OTHER, SELFPAY ==
[2019-12-04 21:58] VITALS: BMI 33.5
--- NOTE | 2021-03-02 | DI.MG.S_ITS ---
BILATERAL DIGITAL SCREENING MAMMOGRAM 3D/2D WITH CAD: 03/02/2021 CLINICAL: Routine screening. Comparison is made to exams dated: 01/01/2020 mammogram, 05/14/2018 mammogram, 12/26/2016 mammogram, 02/03/2019 mammogram, and 06/04/2018 mammogram - [facility]. The tissue of both breasts is heterogeneously dense. This may lower the sensitivity of mammography. Current study was also evaluated with a Computer Aided Detection (CAD) system. There is a new mass in the right breast at 11 o'clock posterior depth. No other significant masses, calcifications, or other findings are seen in either breast. IMPRESSION: INCOMPLETE: NEEDS ADDITIONAL IMAGING EVALUATION The new mass in the right breast is indeterminate. Additional views with possible ultrasound are recommended. This exam was interpreted at Station ID: [id number]. NOTE: For mammograms, a report in lay terms will be sent to the patient. Approximately 15% of breast malignancies will not be visualized mammographically. In the management of a palpable breast mass, a negative mammogram must not discourage biopsy of a clinically suspicious lesion. Electronically Signed By: David schaffer/odette:03/02/2021 10:45:47 letter sent: Additional Imaging Needed ACR BI-RADS Category 0: Incomplete [id number]
== END ==
PROVIDERS: PCP Family Medicine; Referring Provider Family Medicine; Visit Provider Family Medicine
DX: Z12.31 Encounter for screening mammogram for malignant neoplasm of breast (principal)
CPT/HCPCS: 77063; 77067

== ENCOUNTER → 2021-06-02 09:23 | Outpatient (CLI) | payer MEDICARE, OTHER, SELFPAY ==
[2019-12-04 21:58] VITALS: BMI 33.5
--- NOTE | 2021-06-02 | DI.MG.S_ITS ---
UNILATERAL RIGHT DIGITAL DIAGNOSTIC MAMMOGRAM 3D/2D WITH ADDITIONAL VIEWS: 06/02/2021 CLINICAL: Additional evaluation requested from prior study. Comparison is made to exams dated: 03/02/2021 mammogram, 01/01/2020 mammogram, 06/04/2018 mammogram, and 05/14/2018 mammogram - [facility]. The tissue of right breast is heterogeneously dense. This may lower the sensitivity of mammography. There is a new 0.8 cm irregular mass with a spiculated margin in the right breast at 10 o'clock middle depth 8 cm from the nipple. There is architectural distortion associated with the mass. No other significant masses or calcifications are seen in the breast. IMPRESSION: INCOMPLETE: NEEDS ADDITIONAL IMAGING EVALUATION The new 0.8 cm irregular mass in the right breast is indeterminate. An ultrasound is recommended. This exam was interpreted at Station ID: [id number]. NOTE: For mammograms, a report in lay terms will be sent to the patient. Approximately 15% of breast malignancies will not be visualized mammographically. In the management of a palpable breast mass, a negative mammogram must not discourage biopsy of a clinically suspicious lesion. Electronically Signed By: Bal Luo M.D., jr/odette:06/02/2021 09:54:33 ACR BI-RADS Category 0: Incomplete [id number]
--- NOTE | 2021-06-02 | DI.US.S_ITS ---
LIMITED ULTRASOUND OF RIGHT BREAST: 06/02/2021 CLINICAL: Patient returns today to evaluate a focal asymmetry in the right breast. Comparison is made to exams dated: 06/02/2021 mammogram, 03/02/2021 mammogram, 01/01/2020 mammogram, 02/03/2019 ultrasound, 02/03/2019 mammogram, and 06/04/2018 [facility]. Color flow and real-time ultrasound of the right breast 9-11 o'clock region were performed. Vera scale images of the real-time examination were reviewed. There is a 0.8 cm taller than wide irregular mass with a spiculated margin in the right breast at 11 o'clock middle depth 9 cm from the nipple. This irregular mass is hypoechoic with posterior acoustic shadowing. Color flow imaging demonstrates that there is vascularity present. IMPRESSION: SUSPICIOUS OF MALIGNANCY The 0.8 cm taller than wide irregular mass in the right breast is suspicious of malignancy. An ultrasound guided biopsy is recommended. This exam was interpreted at Station ID: [id number]. Electronically Signed By: Bal Luo M.D. jr/:06/02/2021 10:12:55 letter sent: Biopsy Required Ultrasound BI-RADS: 4 Suspicious for malignancy
== END ==
PROVIDERS: PCP Family Medicine; Referring Provider Family Medicine; Visit Provider Family Medicine
DX: R92.8 Other abnormal and inconclusive findings on diagnostic imaging of breast (principal); N63.11 Unspecified lump in the right breast, upper outer quadrant
CPT/HCPCS: 76642; 77065; G0279

== ENCOUNTER → 2021-06-27 14:05 | Outpatient (CLI) | payer MEDICARE, OTHER, SELFPAY ==
[2019-12-04 21:58] VITALS: BMI 33.5
--- NOTE | 2021-06-27 | DI.US.S_ITS ---
ULTRASOUND GUIDED BIOPSY RIGHT BREAST USING VACUUM DEVICE WITH MARKING DEVICE INSERTED AND POST DIGITAL MAMMOGRAPHIC AND ULTRASOUND IMAGIN06/27/2021 CLINICAL: Right breast mass. PATIENT CONSENT: Risks (minor bleeding, infection, vasovagal reaction and repeat procedure), benefits and alternatives were explained to the patient and written informed consent was obtained. Correlation is made to exams dated: 06/27/2021 mammogram, 06/02/2021 ultrasound, 06/02/2021 mammogram, 03/02/2021 mammogram, 01/01/2020 mammogram, and 02/03/2019 [facility]. An ultrasound guided biopsy using real-time ultrasound was performed for the 0.8 cm mass located in the right breast at 11 o'clock middle depth 9 cm from the nipple. This was described on the previous mammography and ultrasound reports. The skin was prepped in the usual manner. Local anesthetic was administered to the access site. A skin susy was made in the breast. The abnormality was approached from the lateral aspect. A 13 gauge biopsy needle was placed adjacent to the abnormality under ultrasound guidance. Once the needle was documented to be in the correct location, five specimens were obtained using a vacuum assisted device. The patient received additional local anesthetic during the procedure. A clip was inserted into the biopsy cavity. A sterile dressing was applied to the access site. Post procedure digital mammographic and ultrasound imaging demonstrates the location device at the targeted area. The specimens were sent to the laboratory for pathological analysis. IMPRESSION: ULTRASOUND GUIDED BIOPSY MALIGNANT Ultrasound guided biopsy of the 0.8 cm mass in the right breast at 11 o'clock middle depth 9 cm from the nipple was successful with no apparent post procedure complications. Pathology indicates malignant invasive ductal carcinoma (ID). Pathology results are concordant with imaging findings. This exam was interpreted at Station ID: [id number]. shady Mathur M.D., M.D./odette:07/11/2021 08:21:36
--- NOTE | 2021-06-27 | PATH_ITS ---
[facility] Accession Number: [id number] No. of containers..01 Tissue . 01 Material submitted: . breast - RIGHT BREAST MASS 11:00 9CMFN . 02 Diagnosis: Right Breast Mass, 11 o'clock, 9 cm From Nipple, Needle Core Biopsies: Invasive ductal carcinoma; see Cancer Case Summary. . CANCER CASE SUMMARY - INVASIVE CARCINOMA OF THE BREAST Procedure: Needle biopsy. Specimen laterality: Right. Tumor Tumor site: 11 o'clock, 9 cm from nipple. Histologic type: Invasive carcinoma of no special type (ductal). Histologic grade (Loan histologic score): Tubular differentiation: Score 2. Nuclear pleomorphism: Score 2. Mitotic rate: Score 1. Overall grade: Grade 1. Tumor size: 4 mm in greatest linear extent. Ductal carcinoma in situ: Not identified. Lymphovascular invasion: Not identified. Microcalcifications: Not identified. . CAP BREAST BIOMARKER REPORTING TEMPLATE: . Estrogen Receptor (ER) Status: Positive. Average intensity of stainin% strong. Primary antibody: SP1 Progesterone Receptor (PgR) Status: Positive. Average intensity of stainin%, intermediate. Primary antibody: 1E2 HER2 (by immunohistochemistry): Negative (0). Primary antibody: 4B5 HER2 (ERBB2) (by in situ hybridization): . Cold Ischemia and Fixation Times: Meets requirements in the latest version of the ASCO/CAP guidelines. Testing performed on Block Number: . TECHNICAL NOTE: The scoring criteria for breast biomarkers by immunohistochemistry is based on the current ASCO/CAP guidelines (Wanda et al, Arch Pathol Lab Med 2010: 134(6): 907-922 / Glynn Gallegos al, Arch Pathol Lab Med 2014: 138(2): 241-256). Deparaffinized sections of formalin fixed tissue (along with appropriate positive controls) are incubated with the above antibody(s). Using the automated [place] stainer, tissue is incubated with the designated antibody* which is then localized by a non-biotin, dual polymer detection system. The external controls are reviewed for appropriate reactivity and found to be adequate. Results on the target cell population are indicated above. These tests have not been validated on decalcified tissue. * This test was developed and its performance characteristics determined by [employer]. It has not been cleared or approved by the U.S. Food and Drug Administration. The FDA has determined that such clearance or approval is not necessary. This test is used for clinical purposes. It should not be regarded as investigational or for research. [facility] 06/30/2021 1804 Local . 02 Comment: As part of routine water quality technician, Dr. Torres has reviewed this case and agrees with the diagnosis of invasive carcinoma. The finding of carcinoma was reported to Dr. Chavira via biomedical equipment tech, Cinthia, on 06/29/2021. . 02 Electronically signed: . Param Keene MD, PhD, Pathologist NPI- [id number] . 01 Gross description: . Received one formalin-filled container labeled with the patient's name and labeled right breast 11 o'clock are multiple fragments of yellow-arora soft tissue, which range in size from 0.2 x 0.2 x 0.2 cm to 0.8 x 0.2 x 0.2 cm. The specimen is entirely submitted in one cassette. Possible collection date and time, per requisition, 06/27/2021 at 1523. Total fixation time approximately 34 hours. (DC:[id number]) /[facility] 06/28/2021 1844 Local . 02 Microscopic: . Sections are of breast parenchyma infiltrated by a proliferation of epithelioid cells in an ill-formed nested and linear growth pattern, consistent with carcinoma. To further evaluate the malignant cells, an E. Cadherin immunohistochemical stain is performed, and the malignant cells are strongly and diffusely positive, consistent with a ductal carcinoma, and excluding a lobular phenotype. A control stain shows appropriate reactivity. . * This test was developed and its performance characteristics determined by [employer]. It has not been cleared or approved by the U.S. Food and Drug Administration. The FDA has determined that such clearance or approval is not necessary. This test is used for clinical purposes. It should not be regarded as investigational or for research. . 02 Pathologist provided ICD-10: C50.911 . 02 CPT . 001836, V80007, 624896, 077994, [id number] Specimen Comment: A courtesy copy of this report has been sent to [phone] Performed at: 01 [facility] [address] [id number] MD Michael Cornelius MD Phone: [phone] Performed at: 02 [facility] [id number] [place] [id number] MD Lindsey Torres MD Phone: [phone]
--- NOTE | 2021-06-27 | DI.MG.S_ITS ---
UNILATERAL RIGHT DIGITAL DIAGNOSTIC MAMMOGRAM 3D/2D POST-NEEDLE BIOPSY: 06/27/2021 CLINICAL: Post clip placement. Right breast mass. Comparison is made to exams dated: 06/02/2021 mammogram, 03/02/2021 mammogram, 01/01/2020 mammogram, 06/02/2021 ultrasound, and 06/27/2021 ultrasound biopsy - [facility]. The tissue of right breast is heterogeneously dense. This may lower the sensitivity of mammography. There is a marker clip in the appropriate position in the right breast at 11 o'clock posterior depth. This marker clip placement is at the biopsy site. IMPRESSION: POST PROCEDURE MAMMOGRAM FOR MARKER PLACEMENT There was a successful marker clip placement in the right breast posterior depth. This exam was interpreted at Station ID: [id number]. NOTE: For mammograms, a report in lay terms will be sent to the patient. Approximately 15% of breast malignancies will not be visualized mammographically. In the management of a palpable breast mass, a negative mammogram must not discourage biopsy of a clinically suspicious lesion. Electronically Signed By: David schaffer/odette:06/27/2021 16:32:55 ACR BI-RADS Category Post-procedure mammogram for marker placement
== END ==
PROVIDERS: PCP Family Medicine; Referring Provider Family Medicine; Visit Provider Family Medicine
DX: C50.411 Malignant neoplasm of upper-outer quadrant of right female breast (principal); Z17.0 Estrogen receptor positive status [ER+]
CPT/HCPCS: 19083; 77065

== ENCOUNTER → 2021-07-27 12:29 | Outpatient (CLI) | payer MEDICARE, OTHER, SELFPAY ==
[2019-12-04 21:58] VITALS: BMI 33.5
--- NOTE | 2021-07-27 | DI.MRI.S_ITS ---
BREAST MRI OF BOTH BREASTS: 07/27/2021 CLINICAL: Right breast cancer. Comparison is made to exams dated: 06/27/2021 ultrasound biopsy, 06/27/2021 mammogram, 06/02/2021 ultrasound, 06/02/2021 mammogram, 03/02/2021 mammogram, and 01/01/2020 mammogram - [facility]. INDICATIONS: RIGHT BREAST CANCER TECHNIQUE: The patient was placed prone in a dedicated breast imaging coil. Precontrast axial STIR and 3D FLASH without fat saturation sequences were obtained. Both before and after bolus injection of contrast, sequential 1-minute axial 3D FLASH with fat saturation sequences for 3 time points, with subtraction images and maximum intensity projections (MIP's) generated. Delayed sagittal FLASH images with fat saturation were also obtained. Computer-aided detection, including computer algorithm analysis of MRI image data for lesion detection and characterization, pharmacokinetic analysis, with further physician review for interpretation, was performed. FINDINGS: Image quality: Excellent. There is mild background parenchymal enhancement. Right breast: An irregular hyperenhancing mass with irregular margins is seen in the upper outer quadrant of the right breast at the 11 o'clock position middle depth measuring 0.7 cm AP x 0.7 cm TR (81/7) by 0.8 cm CC (49/18) with associated biopsy clip, consistent with the known biopsy-proven malignancy. Kinetic curve assessment demonstrates rapid early enhancement with mixed delayed kinetics including a tiny focus of washout. No additional mass or abnormal non-mass enhancement is seen in the right breast. No significantly enlarged right axillary or internal mammary lymphadenopathy. Left breast: No suspicious mass or abnormal non-mass enhancement in the left breast. No significant internal mammary or axillary lymphadenopathy. Miscellaneous: The anterior chest wall and included upper abdomen demonstrate no significant abnormality. IMPRESSION: KNOWN BIOPSY PROVEN MALIGNANCY 1. Known biopsy-proven malignancy in the right breast at the 11 o'clock position measures 0.8 cm in maximum dimension. 2. No suspicious axillary or internal mammary lymphadenopathy. 3. No MR evidence of left breast malignancy. BIRADS 6: Known biopsy-proven malignancy. This exam was interpreted at Station ID: [id number]. Electronically Signed By: David Villarreal M.D. ar/:07/27/2021 14:58:50 ACR BI-RADS Category 6: Known biopsy proven malignancy [id number]
== END ==
PROVIDERS: PCP Family Medicine; Referring Provider Surgery; Visit Provider Surgery
DX: C50.411 Malignant neoplasm of upper-outer quadrant of right female breast (principal)
CPT/HCPCS: 77049; A9579

== ENCOUNTER → 2022-08-14 07:49 | Outpatient (CLI) | payer MEDICARE, OTHER, SELFPAY ==
[2019-12-04 21:58] VITALS: BMI 33.5
--- NOTE | 2022-08-14 | DI.ECHO.S_ITS ---
[facility] +---------+ : : 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 2) Grossly, normal right ventricular size and function. 3) There is moderate aortic stenosis (valve area 1.1cm2, mean gradient 32mmHg). 4) Compared to the Echo done 12/05/2019, moderate aortic stenosis is present on this study. Procedure: A two-dimensional transthoracic echocardiogram with color flow and Doppler was performed. The study quality was technically adequate. Comparison is made with the echocardiogram of 12/05/2019. The patient was in normal sinus rhythm during the exam. Left Ventricle: The left ventricle is normal in size. Left ventricular wall thickness is mildly increased. Left ventricular systolic function is normal. The ejection fraction is estimated to be 60-65%. There are no focal wall motion abnormalities. Diastolic function could not be accurately assessed due to contradictory data. Right Ventricle: The right ventricle is grossly normal size. The right ventricular systolic function is normal. Atria: The left atrium is mildly dilated. Right atrial size is normal. Mitral Valve: The mitral valve is normal in structure and function. There is mild mitral regurgitation. Aortic Valve: The aortic valve is trileaflet. The aortic valve is mildly calcified. There is moderate aortic valve sclerosis. The peak aortic velocity is 3.6 m/sec. The aortic valve mean gradient is 32 mmHg. There is moderate aortic stenosis. There is mild aortic regurgitation. Tricuspid Valve: The tricuspid valve is normal in structure and function. There is mild tricuspid regurgitation. The right ventricular systolic pressure is estimated to be at least 25 mmHg based on an estimated right atrial pressure of 3 mm Hg. Pulmonic Valve: The pulmonic valve leaflets are thin and pliable; valve motion is normal. There is no pulmonic valvular regurgitation. Great Vessels: The aortic root is normal size. The ascending aorta is normal in size. The IVC is of normal diameter and collapses greater than 50% with a sniff. This suggests a low right atrial pressure of 3 mm Hg. Pericardium/ Pleura There is no pericardial effusion. There is no pleural effusion. MMode/2D Measurements & Calculations LVIDd: 3.9 cm LVOT diam: 2.0 cm LVIDs: 2.7 cm Ao root diam: 2.5 cm FS: 30.8 % asc Aorta Diam: 3.3 cm IVSd: 0.90 cm LVPWd: 1.1 cm LV merchant. diameter/BSA (cm/m^2): 2.0 LV sys. diameter/BSA (cm/m^2): 1.4 LA A2 area: 18.3 cm2 RA long axis: 4.4 cm LA A4 area: 21.6 cm2 LA length (vol): 5.3 cm LA vol: 63.0 ml LA vol index: 31.9 ml/m2 LVLs ap4: 6.7 cm LVLd ap2: 7.8 cm LVLs ap2: 6.6 cm TAPSE_phl: 2.1 cm Doppler Measurements & Calculations Ao V2 max: 359.0 cm/sec LVOT Max Yusuf: 123.0 cm/sec Ao V2 mean: 273.0 cm/sec LV V1 max P.1 mmHg Ao max P.6 mmHg LV V1 VTI: 30.7 cm Ao mean P.0 mmHg MIKE(I,D): 1.1 cm2 Ao V2 VTI: 86.1 cm MIKE(V,D): 1.1 cm2 sev ratio: 0.36 MIKE indexed to BSA (cm^2/m^2): 0.56 MV E max yusuf: 80.6 cm/sec TR max yusuf: 234.0 cm/sec MV A max yusuf: 106.0 cm/sec TR max P.9 mmHg MV E/A: 0.76 PA V2 max: 90.4 cm/sec Med Peak E' Yusuf: 6.5 cm/sec PA V2 mean: 69.9 cm/sec E/E' med: 12.4 PA mean P.0 mmHg Lat Peak E' Yusuf: 5.7 cm/sec PA pr(Accel): 25.0 mmHg E/E' lat: 14.1 E/e' average: 13.3 MV dec time: 0.24 sec SV(LVOT): 95.2 ml AV VR_phl: 0.34 MIKE(VTI)/BSA_phl: 0.47 MV P1/2t-pr_phl: 70.0 msec Reading Physician:12:09 PM
== END ==
PROVIDERS: PCP Family Medicine; Referring Provider Internal Medicine Cardiovascular Disease; Visit Provider Internal Medicine Cardiovascular Disease
DX: I11.9 Hypertensive heart disease without heart failure (principal); I08.3 Combined rheumatic disorders of mitral, aortic and tricuspid valves
CPT/HCPCS: 93306

== ENCOUNTER → 2023-07-12 11:03 | Outpatient (CLI) | payer MEDICARE, OTHER, SELFPAY ==
[2019-12-04 21:58] VITALS: BMI 33.5
--- NOTE | 2023-07-12 11:05 | DI.RAD.S_ITS ---
PROCEDURE: XR CHEST 2V INDICATIONS: evaluate for HBOT TECHNIQUE: 2 views of the chest were acquired. COMPARISON: [facility], , XR CHEST 1V, 12/04/2019, 18:09. FINDINGS: Surgical changes and devices: None. Lungs and pleura: Lungs are clear. No pleural effusions or pneumothorax. Mediastinum: Mediastinal contours are normal. Heart size is normal. Bones and chest wall: No suspicious bony abnormalities. Soft tissues appear unremarkable. IMPRESSION: No acute cardiopulmonary abnormality is seen. Dictated by: Chau Poole M.D. on 07/12/2023 at 12:23 Approved by: Chau Poole M.D. on 07/12/2023 at 12:23
== END ==
PROVIDERS: PCP Family Medicine; Referring Provider Surgery; Visit Provider Surgery
DX: Z01.89 Encounter for other specified special examinations (principal); L59.8 Other specified disorders of the skin and subcutaneous tissue related to radiation; M27.2 Inflammatory conditions of jaws; I10 Essential (primary) hypertension; I35.0 Nonrheumatic aortic (valve) stenosis
CPT/HCPCS: 71046; 99212

== ENCOUNTER → 2023-07-12 13:57 | Outpatient (CLI) | payer MEDICARE, OTHER, SELFPAY ==
[2019-12-04 21:58] VITALS: BMI 33.5
== END ==
LOC: WC 07-17 13:58
PROVIDERS: PCP Family Medicine; Visit Provider Surgery
DX: L59.8 Other specified disorders of the skin and subcutaneous tissue related to radiation (principal); M27.2 Inflammatory conditions of jaws; I10 Essential (primary) hypertension; I35.0 Nonrheumatic aortic (valve) stenosis
CPT/HCPCS: 99204; 99212

== ENCOUNTER → 2023-10-01 10:26 | Outpatient (CLI) | payer MEDICARE, OTHER, SELFPAY ==
[2019-12-04 21:58] VITALS: BMI 33.5
== END ==
LOC: WC 10:27
PROVIDERS: PCP Family Medicine; Visit Provider Surgery
DX: L59.8 Other specified disorders of the skin and subcutaneous tissue related to radiation (principal); M27.2 Inflammatory conditions of jaws; M27.8 Other specified diseases of jaws
CPT/HCPCS: 99212; 99213

== ENCOUNTER → 2023-10-01 10:48 | Outpatient (CLI) | payer MEDICARE, OTHER, SELFPAY ==
[2019-12-04 21:58] VITALS: BMI 33.5
--- NOTE | 2023-10-01 10:50 | DI.RAD.S_ITS ---
PROCEDURE: XR CHEST 2V INDICATIONS: hbo clearance TECHNIQUE: 2 views of the chest were acquired. COMPARISON: [facility], CR, XR CHEST 2V, 07/12/2023, 11:04. FINDINGS: Surgical changes and devices: None. Lungs and pleura: Lungs are clear. No pleural effusions or pneumothorax. Mediastinum: Mediastinal contours are normal. Heart size is mildly prominent. Bones and chest wall: No suspicious bony abnormalities. Soft tissues appear unremarkable. IMPRESSION: No acute pulmonary process. Dictated by: Amanda Cali M.D. on 10/01/2023 at 16:11 Approved by: Amanda Cali M.D. on 10/01/2023 at 16:11
== END ==
PROVIDERS: PCP Family Medicine; Referring Provider Surgery; Visit Provider Surgery
DX: Z01.810 Encounter for preprocedural cardiovascular examination (principal); M87.30 Other secondary osteonecrosis, unspecified bone; L59.8 Other specified disorders of the skin and subcutaneous tissue related to radiation; M27.2 Inflammatory conditions of jaws
CPT/HCPCS: 71046; 99212

== ENCOUNTER → 2023-10-03 13:20 | Outpatient (CLI) | payer MEDICARE, OTHER, SELFPAY ==
[2019-12-04 21:58] VITALS: BMI 33.5
== END ==
PROVIDERS: PCP Family Medicine; Visit Provider Surgery
DX: L59.8 Other specified disorders of the skin and subcutaneous tissue related to radiation (principal); M27.2 Inflammatory conditions of jaws; M27.8 Other specified diseases of jaws; I35.0 Nonrheumatic aortic (valve) stenosis
CPT/HCPCS: 99183; G0277

== ENCOUNTER → 2023-10-04 13:41 | Outpatient (CLI) | payer MEDICARE, OTHER, SELFPAY ==
[2019-12-04 21:58] VITALS: BMI 33.5
== END ==
PROVIDERS: PCP Family Medicine; Visit Provider Surgery
DX: L59.8 Other specified disorders of the skin and subcutaneous tissue related to radiation (principal); M27.2 Inflammatory conditions of jaws; M27.8 Other specified diseases of jaws; I35.0 Nonrheumatic aortic (valve) stenosis
CPT/HCPCS: 99183; G0277

== ENCOUNTER → 2023-10-05 13:42 | Outpatient (CLI) | payer MEDICARE, OTHER, SELFPAY ==
[2019-12-04 21:58] VITALS: BMI 33.5
== END ==
PROVIDERS: PCP Family Medicine; Referring Provider Family Medicine; Visit Provider Physician Assistant
DX: L59.8 Other specified disorders of the skin and subcutaneous tissue related to radiation (principal); M27.2 Inflammatory conditions of jaws; M27.8 Other specified diseases of jaws; I35.0 Nonrheumatic aortic (valve) stenosis
CPT/HCPCS: 99183; G0277

== ENCOUNTER → 2023-10-08 13:51 | Outpatient (CLI) | payer MEDICARE, OTHER, SELFPAY ==
[2019-12-04 21:58] VITALS: BMI 33.5
== END ==
PROVIDERS: PCP Family Medicine; Referring Provider Family Medicine; Visit Provider Surgery
DX: L59.8 Other specified disorders of the skin and subcutaneous tissue related to radiation (principal); M27.2 Inflammatory conditions of jaws; M27.8 Other specified diseases of jaws; I35.0 Nonrheumatic aortic (valve) stenosis
CPT/HCPCS: 99183; G0277

== ENCOUNTER → 2023-10-09 14:40 | Outpatient (CLI) | payer MEDICARE, OTHER, SELFPAY ==
[2019-12-04 21:58] VITALS: BMI 33.5
== END ==
PROVIDERS: PCP Family Medicine; Visit Provider Surgery
DX: L59.8 Other specified disorders of the skin and subcutaneous tissue related to radiation (principal); M27.2 Inflammatory conditions of jaws; M27.8 Other specified diseases of jaws; I35.0 Nonrheumatic aortic (valve) stenosis
CPT/HCPCS: 99183; G0277

== ENCOUNTER → 2023-10-10 13:25 | Outpatient (CLI) | payer MEDICARE, OTHER, SELFPAY ==
[2019-12-04 21:58] VITALS: BMI 33.5
== END ==
LOC: WC 13:26
PROVIDERS: PCP Family Medicine; Visit Provider Surgery
DX: L59.8 Other specified disorders of the skin and subcutaneous tissue related to radiation (principal); M27.2 Inflammatory conditions of jaws; M27.8 Other specified diseases of jaws; I35.0 Nonrheumatic aortic (valve) stenosis
CPT/HCPCS: 99183; G0277

== ENCOUNTER → 2023-10-11 13:44 | Outpatient (CLI) | payer MEDICARE, OTHER, SELFPAY ==
[2019-12-04 21:58] VITALS: BMI 33.5
== END ==
LOC: WC 13:45
PROVIDERS: PCP Family Medicine; Referring Provider Student in an Organized Health Care Education/Training Program; Visit Provider Surgery
DX: L59.8 Other specified disorders of the skin and subcutaneous tissue related to radiation (principal); M27.2 Inflammatory conditions of jaws; M27.8 Other specified diseases of jaws; I35.0 Nonrheumatic aortic (valve) stenosis
CPT/HCPCS: 99183; G0277

== ENCOUNTER → 2023-10-15 14:05 | Outpatient (CLI) | payer MEDICARE, OTHER, SELFPAY ==
[2019-12-04 21:58] VITALS: BMI 33.5
== END ==
LOC: WC 14:07
PROVIDERS: PCP Family Medicine; Visit Provider Surgery
DX: L59.8 Other specified disorders of the skin and subcutaneous tissue related to radiation (principal); M27.2 Inflammatory conditions of jaws; M27.8 Other specified diseases of jaws; I35.0 Nonrheumatic aortic (valve) stenosis
CPT/HCPCS: 99183; G0277

== ENCOUNTER → 2023-10-16 13:22 | Outpatient (CLI) | payer MEDICARE, OTHER, SELFPAY ==
[2019-12-04 21:58] VITALS: BMI 33.5
== END ==
LOC: WC 13:23
PROVIDERS: PCP Family Medicine; Visit Provider Surgery
DX: L59.8 Other specified disorders of the skin and subcutaneous tissue related to radiation (principal); M27.2 Inflammatory conditions of jaws; M27.8 Other specified diseases of jaws; I35.0 Nonrheumatic aortic (valve) stenosis
CPT/HCPCS: 99183; G0277

== ENCOUNTER → 2023-10-17 13:23 | Outpatient (CLI) | payer MEDICARE, OTHER, SELFPAY ==
[2019-12-04 21:58] VITALS: BMI 33.5
== END ==
LOC: WC 13:25
PROVIDERS: PCP Family Medicine; Visit Provider Surgery
DX: L59.8 Other specified disorders of the skin and subcutaneous tissue related to radiation (principal); M27.2 Inflammatory conditions of jaws; M27.8 Other specified diseases of jaws; I35.0 Nonrheumatic aortic (valve) stenosis
CPT/HCPCS: 99183; G0277

== ENCOUNTER → 2023-10-22 14:43 | Outpatient (CLI) | payer MEDICARE, OTHER, SELFPAY ==
[2019-12-04 21:58] VITALS: BMI 33.5
== END ==
PROVIDERS: PCP Family Medicine; Referring Provider Family Medicine; Visit Provider Surgery
DX: L59.8 Other specified disorders of the skin and subcutaneous tissue related to radiation (principal); M27.2 Inflammatory conditions of jaws; M27.8 Other specified diseases of jaws; I35.0 Nonrheumatic aortic (valve) stenosis
CPT/HCPCS: 99183; G0277

== ENCOUNTER → 2023-10-23 14:25 | Outpatient (CLI) | payer MEDICARE, OTHER, SELFPAY ==
[2019-12-04 21:58] VITALS: BMI 33.5
== END ==
PROVIDERS: PCP Family Medicine; Referring Provider Family Medicine; Visit Provider Surgery
DX: L59.8 Other specified disorders of the skin and subcutaneous tissue related to radiation (principal); M27.2 Inflammatory conditions of jaws; I35.0 Nonrheumatic aortic (valve) stenosis; M27.8 Other specified diseases of jaws
CPT/HCPCS: 99183; G0277

== ENCOUNTER → 2023-10-30 14:14 | Outpatient (CLI) | payer MEDICARE, OTHER, SELFPAY ==
[2019-12-04 21:58] VITALS: BMI 33.5
== END ==
PROVIDERS: PCP Family Medicine; Visit Provider Surgery
DX: L59.8 Other specified disorders of the skin and subcutaneous tissue related to radiation (principal); M27.2 Inflammatory conditions of jaws; M27.8 Other specified diseases of jaws; I35.0 Nonrheumatic aortic (valve) stenosis
CPT/HCPCS: 99183; G0277

== ENCOUNTER → 2023-10-31 14:32 | Outpatient (CLI) | payer MEDICARE, OTHER, SELFPAY ==
[2019-12-04 21:58] VITALS: BMI 33.5
== END ==
PROVIDERS: PCP Family Medicine; Visit Provider Surgery
DX: L59.8 Other specified disorders of the skin and subcutaneous tissue related to radiation (principal); M27.2 Inflammatory conditions of jaws; M27.8 Other specified diseases of jaws; I35.0 Nonrheumatic aortic (valve) stenosis
CPT/HCPCS: 99183; G0277

== ENCOUNTER → 2023-11-01 13:00 | Outpatient (CLI) | payer MEDICARE, OTHER, SELFPAY ==
[2019-12-04 21:58] VITALS: BMI 33.5
== END ==
PROVIDERS: PCP Family Medicine; Visit Provider Surgery
DX: L59.8 Other specified disorders of the skin and subcutaneous tissue related to radiation (principal); M27.2 Inflammatory conditions of jaws; M27.8 Other specified diseases of jaws; I35.0 Nonrheumatic aortic (valve) stenosis
CPT/HCPCS: 99183; 99211; 99213; G0277

== ENCOUNTER → 2023-11-02 13:50 | Outpatient (CLI) | payer MEDICARE, OTHER, SELFPAY ==
[2019-12-04 21:58] VITALS: BMI 33.5
== END ==
LOC: WC 13:52
PROVIDERS: PCP Family Medicine; Referring Provider Family Medicine; Visit Provider Physician Assistant
DX: L59.8 Other specified disorders of the skin and subcutaneous tissue related to radiation (principal); M27.2 Inflammatory conditions of jaws; M27.8 Other specified diseases of jaws; I35.0 Nonrheumatic aortic (valve) stenosis
CPT/HCPCS: 99183; G0277

== ENCOUNTER → 2023-11-05 14:41 | Outpatient (CLI) | payer MEDICARE, OTHER, SELFPAY ==
[2019-12-04 21:58] VITALS: BMI 33.5
== END ==
LOC: WC 14:45
PROVIDERS: PCP Family Medicine; Visit Provider Surgery
DX: L59.8 Other specified disorders of the skin and subcutaneous tissue related to radiation (principal); M27.2 Inflammatory conditions of jaws; M27.8 Other specified diseases of jaws; I35.0 Nonrheumatic aortic (valve) stenosis
CPT/HCPCS: 99183; G0277

== ENCOUNTER → 2023-11-06 13:32 | Outpatient (CLI) | payer MEDICARE, OTHER, SELFPAY ==
[2019-12-04 21:58] VITALS: BMI 33.5
== END ==
LOC: WC 13:34
PROVIDERS: PCP Family Medicine; Visit Provider Surgery
DX: L59.8 Other specified disorders of the skin and subcutaneous tissue related to radiation (principal); M27.2 Inflammatory conditions of jaws; M27.8 Other specified diseases of jaws; I35.0 Nonrheumatic aortic (valve) stenosis
CPT/HCPCS: 99183; G0277

== ENCOUNTER → 2023-11-07 14:15 | Outpatient (CLI) | payer MEDICARE, OTHER, SELFPAY ==
[2019-12-04 21:58] VITALS: BMI 33.5
== END ==
LOC: WC 14:17
PROVIDERS: PCP Family Medicine; Visit Provider Surgery
DX: L59.8 Other specified disorders of the skin and subcutaneous tissue related to radiation (principal); M27.2 Inflammatory conditions of jaws; M27.8 Other specified diseases of jaws; I35.0 Nonrheumatic aortic (valve) stenosis
CPT/HCPCS: 99183; G0277

== ENCOUNTER → 2023-11-08 13:54 | Outpatient (CLI) | payer MEDICARE, OTHER, SELFPAY ==
[2019-12-04 21:58] VITALS: BMI 33.5
== END ==
LOC: WC 13:55
PROVIDERS: PCP Family Medicine; Visit Provider Nurse Practitioner Family
DX: L59.8 Other specified disorders of the skin and subcutaneous tissue related to radiation (principal); M27.2 Inflammatory conditions of jaws; M27.8 Other specified diseases of jaws; I35.0 Nonrheumatic aortic (valve) stenosis
CPT/HCPCS: 99183; G0277

== ENCOUNTER → 2023-11-12 10:46 | Outpatient (CLI) | payer MEDICARE, OTHER, SELFPAY ==
[2019-12-04 21:58] VITALS: BMI 33.5
== END ==
LOC: WC 10:47
PROVIDERS: PCP Family Medicine; Visit Provider Physician Assistant
DX: L59.8 Other specified disorders of the skin and subcutaneous tissue related to radiation (principal); M27.2 Inflammatory conditions of jaws; M27.8 Other specified diseases of jaws; I35.0 Nonrheumatic aortic (valve) stenosis
CPT/HCPCS: 99183; G0277

== ENCOUNTER → 2023-11-13 12:49 | Outpatient (CLI) | payer MEDICARE, OTHER, SELFPAY ==
[2019-12-04 21:58] VITALS: BMI 33.5
== END ==
PROVIDERS: PCP Family Medicine; Visit Provider Physician Assistant
DX: L59.8 Other specified disorders of the skin and subcutaneous tissue related to radiation (principal); M27.2 Inflammatory conditions of jaws; M27.8 Other specified diseases of jaws; I35.0 Nonrheumatic aortic (valve) stenosis
CPT/HCPCS: 99183; G0277

== ENCOUNTER → 2023-11-14 10:58 | Outpatient (CLI) | payer MEDICARE, OTHER, SELFPAY ==
[2019-12-04 21:58] VITALS: BMI 33.5
== END ==
PROVIDERS: PCP Family Medicine; Visit Provider Nurse Practitioner Family
DX: L59.8 Other specified disorders of the skin and subcutaneous tissue related to radiation (principal); M27.2 Inflammatory conditions of jaws; M27.8 Other specified diseases of jaws; I35.0 Nonrheumatic aortic (valve) stenosis
CPT/HCPCS: 99183; G0277

== ENCOUNTER → 2023-11-15 11:36 | Outpatient (CLI) | payer MEDICARE, OTHER, SELFPAY ==
[2019-12-04 21:58] VITALS: BMI 33.5
== END ==
LOC: WC 11:40
PROVIDERS: PCP Family Medicine; Visit Provider Nurse Practitioner Family
DX: L59.8 Other specified disorders of the skin and subcutaneous tissue related to radiation (principal); M27.2 Inflammatory conditions of jaws; M27.8 Other specified diseases of jaws; I35.0 Nonrheumatic aortic (valve) stenosis
CPT/HCPCS: 99183; G0277

== ENCOUNTER → 2023-11-16 13:55 | Outpatient (CLI) | payer MEDICARE, OTHER, SELFPAY ==
[2019-12-04 21:58] VITALS: BMI 33.5
== END ==
LOC: WC 13:56
PROVIDERS: PCP Family Medicine; Visit Provider Physician Assistant
DX: L59.8 Other specified disorders of the skin and subcutaneous tissue related to radiation (principal); M27.2 Inflammatory conditions of jaws; M27.8 Other specified diseases of jaws; I35.0 Nonrheumatic aortic (valve) stenosis
CPT/HCPCS: 99183; G0277

== ENCOUNTER → 2023-11-21 11:40 | Outpatient (CLI) | payer MEDICARE, OTHER, SELFPAY ==
[2019-12-04 21:58] VITALS: BMI 33.5
== END ==
LOC: WC 11:41
PROVIDERS: PCP Family Medicine; Visit Provider Surgery
DX: L59.8 Other specified disorders of the skin and subcutaneous tissue related to radiation (principal); M27.2 Inflammatory conditions of jaws; M27.8 Other specified diseases of jaws; I35.0 Nonrheumatic aortic (valve) stenosis
CPT/HCPCS: 99183; G0277

== ENCOUNTER → 2023-11-22 11:34 | Outpatient (CLI) | payer MEDICARE, OTHER, SELFPAY ==
[2019-12-04 21:58] VITALS: BMI 33.5
== END ==
LOC: WC 11:35
PROVIDERS: PCP Family Medicine; Visit Provider Surgery
DX: L59.8 Other specified disorders of the skin and subcutaneous tissue related to radiation (principal); M27.2 Inflammatory conditions of jaws; I35.0 Nonrheumatic aortic (valve) stenosis
CPT/HCPCS: 99183; G0277

== ENCOUNTER → 2023-11-23 11:22 | Outpatient (CLI) | payer MEDICARE, OTHER, SELFPAY ==
[2019-12-04 21:58] VITALS: BMI 33.5
== END ==
LOC: WC 11:23
PROVIDERS: PCP Family Medicine; Visit Provider Physician Assistant
DX: L59.8 Other specified disorders of the skin and subcutaneous tissue related to radiation (principal); M27.2 Inflammatory conditions of jaws; M27.8 Other specified diseases of jaws; I35.0 Nonrheumatic aortic (valve) stenosis
CPT/HCPCS: 99183; G0277

== ENCOUNTER → 2023-11-26 14:51 | Outpatient (CLI) | payer MEDICARE, OTHER, SELFPAY ==
[2019-12-04 21:58] VITALS: BMI 33.5
== END ==
LOC: WC 14:52
PROVIDERS: PCP Family Medicine; Visit Provider Surgery
DX: L59.8 Other specified disorders of the skin and subcutaneous tissue related to radiation (principal); M27.2 Inflammatory conditions of jaws; M27.8 Other specified diseases of jaws; I35.0 Nonrheumatic aortic (valve) stenosis
CPT/HCPCS: 99183; G0277

== ENCOUNTER → 2023-11-27 13:11 | Outpatient (CLI) | payer MEDICARE, OTHER, SELFPAY ==
[2019-12-04 21:58] VITALS: BMI 33.5
== END ==
LOC: WC 13:12
PROVIDERS: PCP Family Medicine; Visit Provider Surgery
DX: L59.8 Other specified disorders of the skin and subcutaneous tissue related to radiation (principal); M27.2 Inflammatory conditions of jaws; M27.8 Other specified diseases of jaws; I35.0 Nonrheumatic aortic (valve) stenosis
CPT/HCPCS: 99183; G0277

== ENCOUNTER 2024-01-15 13:23 | Emergency (ER) | payer MEDICARE, OTHER, SELFPAY ==
[2019-12-04 21:58] VITALS: BMI 33.5
[2024-01-15] VITALS (11 sets, daily range): BP systolic 174–214; BP diastolic 79–96; PULSE 96–117; RESP 16–38; TEMP 36.7; O2SAT 93–98; BMI 27.4
--- NOTE | 2024-01-15 13:34 | ED.SOB ---
HPI - SOB/Dyspnea General Chief Complaint: Arrhythmia/Palpitations Stated Complaint: Shaky, sweaty , SOB Time Seen by Provider: 01/15/24 13:33 History of Present Illness HPI Narrative: Patient is a 73-year-old female past medical history of hypertension hyperlipidemia hypothyroidism comes into the ED from home for evaluation of multiple complaints, states that she has been having some shortness of breath has been shaky and sweaty. She states that this started spontaneously at around 10:00 a.m.. Does endorse nausea but no vomiting. She denies any actual headache visual disturbances chest pain fever chills vomiting abdominal pain or any other GI/ symptoms time. At time of initial evaluation patient is diaphoretic with tachypnea but is not complaining of any difficulty breathing tolerating secretions speaking full sentences protecting airway. Related Data Home Medications Medication Instructions Recorded Confirmed levothyroxine 25 mcg tablet 0.15 mg PO Q DAY ##0 12/17/10 08/10/21 (Synthroid) paroxetine HCl 20 mg tablet (Paxil) 20 mg PO QDAY ##0 12/17/10 08/10/21 acetylcysteine 600 mg capsule (NAC) 1,200 mg PO DAILY 07/13/21 08/10/21 atorvastatin 40 mg tablet 40 mg PO DAILY 07/13/21 08/10/21 hydrochlorothiazide 25 mg tablet 25 mg PO DAILY 07/13/21 08/10/21 lisinopril 40 mg tablet 40 mg PO DAILY 07/13/21 08/10/21 sumatriptan succinate 50 mg tablet 50 mg PO Q2-4H PRN Headache 07/13/21 08/10/21 (Imitrex) ibuprofen 600 mg tablet 600 mg PO Q6H PRN Pain (Scale 08/10/21 08/10/21 Score 4-6) Previous Rx's Medication Instructions Recorded ondansetron 4 mg disintegrating 4 mg PO Q4HR PRN Nausea #30 tabs 11/23/21 tablet anastrozole 1 mg tablet 1 mg PO DAILY #90 tabs 11/14/22 Allergies Allergy/AdvReac Type Severity Reaction Status Date / Time No Known Drug Allergies Allergy Verified 01/15/24 13:34 Review of Systems Review of Systems Narrative: General: Positive diaphoresis HEENT: Denies headache, eye drainage, eye irritation, head trauma, sore throat, voice change, positive chills, shaking Cardiovascular: Denies any chest pain, palpitations, shortness of breath, tachycardia Respiratory: Positive shortness of breath GI/: Denies any abdominal pain, nausea, vomiting, diarrhea, bright red blood per rectum, melanotic stools, urinary frequency, urinary retention, dysuria, hematuria MSK: Denies any joint pain, muscle pains, swelling Skin: Denies any rashes, lesions, discoloration Neuro: Denies any headache, lightheadedness, dizziness, fainting, weakness Psych: Denies SI/HI Patient History Medical History (Updated 08/10/21 @ 10:55 by Ferdy Samaniego MD) IBS (irritable bowel syndrome) TIA (transient ischemic attack) Throat cancer (2003) History of migraine Panic attacks Hypertension Elevated cholesterol Surgical History (Updated 07/13/21 @ 10:09 by Fredy Samaniego MD) Hx laparoscopic cholecystectomy History of carotid endarterectomy Social History household members: spouse Smoking Status: Never smoker alcohol intake: current Smoking Status: Never smoker alcohol intake frequency: 0-2 drinks per day Substance Use Type: marijuana Exam Narrative Exam Narrative: General: Cooperative, diaphoretic HEENT: Normocephalic, atraumatic, PERRLA, normal sclera, eyelids normal, Neck: Active full range of motion, atraumatic Chest: Normal to inspection, negative crepitus, no overlying erythema ecchymosis Respiratory: Tachypneic clear to auscultation bilaterally negative cough, wheeze, , rhonchi, rales Cardiology: Tachycardic, negative gallop, murmur, rubs GI/: Normal to inspection, soft, nonrigid, no tenderness to palpation, exam deferred MSK: Full range of active range of motion of all 4 extremities, atraumatic Skin: No rashes lesions noted Neuro: Alert awake oriented x3, moves all 4 extremities spontaneously, cranial nerves intact, able to answer all questions appropriately follows commands appropriately Psych: Cooperative, negative suicidal or homicidal ideations Initial Vital Signs Initial Vital Signs: Vital Signs Temperature 98.0 F 01/15/24 13:25 Pulse Rate 117 H 01/15/24 13:25 Respiratory Rate 35 H 01/15/24 13:25 Blood Pressure 214/92 H 01/15/24 13:25 Pulse Oximetry 98 01/15/24 13:25 Oxygen Delivery Method Room Air 01/15/24 13:25 Course Orders Ordered: ED Orders 01/15/24 13:35 Complete Blood Count AUTO DIFF Stat Comprehensive Metabolic Panel Stat D Dimer Stat Free T3, Triiodothyronine Free Stat Free T4, Direct Thyroxine Stat Lactate (Lactic Acid) Stat Lipase Stat NT-proBNP (BNP-Adult 18+) Stat PTT Partial Thromboplastin Drew Stat Procalcitonin Stat Prothrombin Time INR Stat TSH [Thyroid Stimulating Hormone] Stat Troponin & CK Cardiac Panel Stat 01/15/24 13:36 XR chest 1V Stat EKG-12 Lead Stat 01/15/24 13:42 Covid-19 + FLU A/B + RSV - PCR Stat 01/15/24 13:45 Blood Culture Stat 01/15/24 14:06 CT abdomen pelvis w con Stat 01/15/24 14:22 CT angio chest PE protocol Stat 01/15/24 14:40 Urine Microscopic Stat 01/15/24 15:35 Trop I [Troponin I] Stat Sodium Chloride (Normal Saline 0.9%) 1,000 mls @ 150 mls/hr IV CONT JESSICA Last Infusion: 01/15/24 15:38 Dose: Infused Documented By: Admin: 01/15/24 13:45 Dose: 150 mls/hr Documented By: EMILIA Discontinued Medications Magnesium Sulfate (Magnesium Sulfate) 2 gm in 50 mls @ 150 mls/hr IV NOW ONE Stop: 01/15/24 13:59 Last Infusion: 01/15/24 14:08 Dose: Infused Documented By: BRYSON Co-signed By: SU Admin: 01/15/24 13:45 Dose: 150 mls/hr Documented By: EMILIA Co-signed By: SU Lorazepam (Lorazepam 2 Mg/Ml Inj) 1 mg IV NOW ONE Stop: 01/15/24 16:17 Last Admin: 01/15/24 16:23 Dose: 1 mg Documented By: EMILIA Vital Signs Vital signs: Vital Signs - 8 hr 01/15/24 13:25 01/15/24 13:32 01/15/24 13:33 Temperature 98.0 F Pulse Rate 117 H 117 H Respiratory Rate 35 H 30 H Blood Pressure 214/92 H 214/92 H Pulse Oximetry 98 98 Oxygen Delivery Method Room Air 01/15/24 13:33 01/15/24 14:00 01/15/24 14:01 Temperature Pulse Rate 115 H 100 H Respiratory Rate 38 H 29 H Blood Pressure 186/86 H Pulse Oximetry 98 97 Oxygen Delivery Method 01/15/24 14:01 01/15/24 14:30 01/15/24 14:41 Temperature Pulse Rate 100 H 100 H 109 H Respiratory Rate 26 H 28 H 23 Blood Pressure Pulse Oximetry 97 93 97 Oxygen Delivery Method 01/15/24 15:00 01/15/24 15:00 01/15/24 15:30 Temperature Pulse Rate 101 H 96 H Respiratory Rate 19 16 Blood Pressure 185/86 H Pulse Oximetry 96 96 Oxygen Delivery Method 01/15/24 15:30 01/15/24 16:00 01/15/24 16:00 Temperature Pulse Rate 100 H Respiratory Rate 20 Blood Pressure 186/89 H 183/96 H Pulse Oximetry 94 Oxygen Delivery Method 01/15/24 16:30 01/15/24 16:30 Temperature Pulse Rate 104 H Respiratory Rate 27 H Blood Pressure 174/79 H Pulse Oximetry 96 Oxygen Delivery Method MDM - SOB/Dyspnea Differential Diagnosis Differential diagnosis: Likely congestive heart failure, community acquired pneumonia, asthma with exacerbation, pulmonary embolism and other (Electrolyte abnormality, COVID, flu, urinary tract infection) Lab Data 01/15/24 13:35 01/15/24 13:35 Labs: Lab Results 01/15/24 01/15/24 01/15/24 Range/Units 13:35 13:42 14:40 WBC 10.3 (4.5-11.0) X10^3/uL RBC 4.87 (4.0-5.2) X10^6/uL Hgb 16.3 H (12.0-16.0) g/dL Hct 47.4 H (36-46) % MCV 97.2 (80-100) fL MCH 33.5 (26-34) PG MCHC 34.4 (30-36) % RDW 13.9 (11.6-14.8) % Plt Count 326 (150-400) X10^3/uL Neut % (Auto) 82.3 H (50-75) % Lymph % (Auto) 10.0 L (25-40) % [place] % (Auto) 6.5 (3-14) % Eos % (Auto) 0.2 L (2-4) % Baso % (Auto) 1.0 (0-2) % Neut # (Auto) 8500 H (4381-2439) /uL Lymph # (Auto) 1000 L (4986-4957) /uL [place] # (Auto) 700 (0-900) /uL Eos # (Auto) 0 (0-450) /uL Baso # (Auto) 100 (0-100) /uL PT 9.8 (9.4-12.5) SECONDS INR 0.9 (0.9-1.3) APTT 38 H (25.1-36.5) SECONDS D-Dimer 1385 H (<500) ng/ml Sodium 134 L (137-145) mmol/L Potassium 4.0 (3.4-5.1) mmol/L Chloride 95 L (98-107) mmol/L Carbon Dioxide 23 (22-32) mmol/L BUN 16 (7-17) mg/dL Creatinine 0.74 (0.52-1.04) mg/dL Estimated GFR > 60 (>60) mL/min BUN/Creatinine Ratio 21.6 (6-22) Glucose 133 H (80-110) mg/dL Lactate 4.3 H* (0.7-2.1) mmol/L Calcium 10.0 (8.4-10.2) mg/dL Total Bilirubin 1.0 (0.2-1.3) mg/dL AST 55 H (14-36) IU/L ALT 40 H (<35) IU/L Alkaline Phosphatase 125 (38-126) U/L Total Creatine Kinase 85 (30-135) U/L Troponin I 0.018 (0.01-0.034) ng/mL NT-Pro-B Natriuret Pep 240 (<450) pg/mL Total Protein 9.2 H (6.3-8.2) g/dL Albumin 5.1 H (3.5-5.0) g/dL Globulin 4.1 (1.7-4.1) g/dL Albumin/Globulin Ratio 1.2 (1.0-2.8) Lipase 365 H (23-300) U/L Procalcitonin 0.054 (<0.5) ng/mL TSH 2.78 (0.47-4.68) uIU/mL Free T4 1.13 (0.78-2.19) ng/dL Free T3 2.40 L (2.77-5.27) pg/mL Urine RBC 0-1/hpf (0-5/HPF) Urine WBC 0-1/hpf (0-5/HPF) Ur Squamous Epith Cells 0-1 /hpf (0-5/HPF) Urine Bacteria Few (2-10) H (None) Ur Culture Indicated? Cult not indicated Vol Urine Centrifuged 10ml (spun) SARS-CoV-2 (PCR) Negative (Negative) Influenza A (RT-PCR) Flu a negative (NEGATIVE) Influenza B (RT-PCR) Flu b negative (NEGATIVE) RSV (PCR) Negative (Negative) 01/15/24 Range/Units 15:35 WBC (4.5-11.0) X10^3/uL RBC (4.0-5.2) X10^6/uL Hgb (12.0-16.0) g/dL Hct (36-46) % MCV (80-100) fL MCH (26-34) PG MCHC (30-36) % RDW (11.6-14.8) % Plt Count (150-400) X10^3/uL Neut % (Auto) (50-75) % Lymph % (Auto) (25-40) % [place] % (Auto) (3-14) % Eos % (Auto) (2-4) % Baso % (Auto) (0-2) % Neut # (Auto) (0010-2917) /uL Lymph # (Auto) (4525-1615) /uL [place] # (Auto) (0-900) /uL Eos # (Auto) (0-450) /uL Baso # (Auto) (0-100) /uL PT (9.4-12.5) SECONDS INR (0.9-1.3) APTT (25.1-36.5) SECONDS D-Dimer (<500) ng/ml Sodium (137-145) mmol/L Potassium (3.4-5.1) mmol/L Chloride (98-107) mmol/L Carbon Dioxide (22-32) mmol/L BUN (7-17) mg/dL Creatinine (0.52-1.04) mg/dL Estimated GFR (>60) mL/min BUN/Creatinine Ratio (6-22) Glucose (80-110) mg/dL Lactate 1.4 (0.7-2.1) mmol/L Calcium (8.4-10.2) mg/dL Total Bilirubin (0.2-1.3) mg/dL AST (14-36) IU/L ALT (<35) IU/L Alkaline Phosphatase (38-126) U/L Total Creatine Kinase (30-135) U/L Troponin I 0.029 (0.01-0.034) ng/mL NT-Pro-B Natriuret Pep (<450) pg/mL Total Protein (6.3-8.2) g/dL Albumin (3.5-5.0) g/dL Globulin (1.7-4.1) g/dL Albumin/Globulin Ratio (1.0-2.8) Lipase (23-300) U/L Procalcitonin (<0.5) ng/mL TSH (0.47-4.68) uIU/mL Free T4 (0.78-2.19) ng/dL Free T3 (2.77-5.27) pg/mL Urine RBC (0-5/HPF) Urine WBC (0-5/HPF) Ur Squamous Epith Cells (0-5/HPF) Urine Bacteria (None) Ur Culture Indicated? Vol Urine Centrifuged SARS-CoV-2 (PCR) (Negative) Influenza A (RT-PCR) (NEGATIVE) Influenza B (RT-PCR) (NEGATIVE) RSV (PCR) (Negative) Point of Care Testing Glucose POC 117 Urine Dip Bedside Urine Glucose Negative Bedside Urine Bilirubin - Negative Bedside Urine Ketone - Negative Urine Specific [place] 1.005 Bedside Urine Occult Blood +/- Bedside Urine pH 7.0 Bedside Urine Protein + 30 Bedside Urine Urobilinogen - Negative Bedside Urine Nitrite - Negative Bedside Urine Leukocytes - Negative Esterase Imaging Data Chest x-ray: Radiologist's Impression: [address] [id number] XRay Report Signed Patient: Isela Galeana MR#: [id number] : 1950 Acct:[id number] Age/Sex: 73 / F Date of Service: 01/15/24 Loc: ED Accession Number: [id number] Procedure: XR chest 1V Ordering Provider: Mo Veloz D.O. PROCEDURE: XR CHEST 1V INDICATIONS: chest pain TECHNIQUE: One view of the chest was acquired. COMPARISON: [facility], CR, XR CHEST 2V, 10/01/2023, 11:32. [facility], CR, XR CHEST 2V, 07/12/2023, 11:04. FINDINGS: Surgical changes and devices: None. Lungs and pleura: Lungs are clear. No pleural effusions or pneumothorax. Mediastinum: Mediastinal contours appear normal. Heart size is normal. Bones and chest wall: No suspicious bony lesions. Overlying soft tissues appear unremarkable. IMPRESSION: No acute cardiopulmonary abnormality is seen. CTA chest : Radiologist's Impression: PROCEDURE: CT ANGIO CHEST PE PROTOCOL INDICATIONS: elevated ddimer TECHNIQUE: After the administration of intravenous contrast, 2 mm thick sections acquired from the pulmonary apices to the posterior costophrenic angles. 3-dimensional maximum intensity projection (MIP) coronal and sagittal reformats were then acquired through the thorax. For radiation dose reduction, the following was used: automated exposure control, adjustment of mA and/or kV according to patient size. COMPARISON: None. FINDINGS: Image quality: Diagnostic. Pulmonary arteries: Pulmonary arteries are normal in size, and demonstrate no intraluminal filling defects to suggest central pulmonary embolism. Lower Neck: No enlarged lymph nodes. Thyroid: No thyroid nodules which require sonographic follow up, per consensus guidelines. Axillae: No enlarged lymph nodes. Chest Wall: Unremarkable. Bones: Unremarkable. Lungs and Pleura: No pneumothorax or pleural effusions. No consolidation or suspicious nodules. Heart: Heart size is normal. No pericardial effusion. Thoracic Vessels: No aortic aneurysm. Mediastinum and Emmy: No enlarged lymph nodes. Esophagus: Circumferential thickening of the esophagus. Upper Abdomen: Visualized upper abdomen solid organs and bowel loops appear normal. IMPRESSION: No pulmonary embolus. Circumferential thickening of the esophagus, which may indicate esophagitis. Correlate with symptoms. CT scan - abdomen/pelvis: Radiologist's Impression: PROCEDURE: CT ABDOMEN PELVIS W CON INDICATIONS: sepsis TECHNIQUE: After the administration of intravenous contrast, axial sections acquired from the lung bases to the pubic symphysis. Coronal and sagittal reformats were performed. For radiation dose reduction, the following was used: automated exposure control, adjustment of mA and/or kV according to patient size. COMPARISON: None. FINDINGS: Image quality: Diagnostic. Lower Chest: Separately dictated. ABDOMEN: Liver: No solid mass. Gallbladder: Absent. Biliary ducts: No biliary dilation. Pancreas: No ductal dilation. Spleen: Size is within normal limits. Adrenal Glands: No adrenal nodules. Kidneys and Ureters: No hydronephrosis. No solid mass. No complex renal cystic lesion which requires follow up. Stomach and Bowel: Normal colonic caliber, without significant wall thickening. Peritoneum: No abnormal intraperitoneal fluid. No free air. Ventral Wall: No significant ventral hernia. Abdominal Nodes: No retroperitoneal or mesenteric adenopathy by size criteria. Vessels: Aorta and inferior vena cava are normal in size. PELVIS: Pelvic Organs: Unremarkable. Bladder: No bladder wall thickening, accounting for underdistention. Pelvic Nodes: No enlarged lymph nodes. Miscellaneous: No inguinal hernias are seen. Bones: No aggressive osseous abnormality. Degenerative disc disease of the lumbar spine. Opposing endplate sclerosis at L2-3 and L4-5. IMPRESSION: No findings of infection. MDM Narrative Medical decision making narrative: Patient is a 73-year-old female past medical history hypertension hyperlipidemia comes in for multiple symptoms, complaining of diffuse shortness of breath, diaphoresis started abruptly at 10:00 a.m.. Lab work imaging unremarkable, initial lactate was elevated however after repeat normalized after 1 L normal saline. Additional information was obtained she states that she has been drinking 2 cocktails on a daily basis for ?a very long time was given 1 of Ativan had significant improvement of symptoms patient possibly in acute alcohol withdrawal, however patient with very low CIWA score, she was given strict return precautions safe for discharge home with outpatient follow up Discharge Plan Departure Prescriptions: No Action paroxetine HCl [Paxil] 20 MG tablet 20 mg PO QDAY Qty: 0 levothyroxine [Synthroid] 25 MCG tablet 0.15 mg PO Q DAY Qty: 0 atorvastatin 40 mg Tablet 40 mg PO DAILY sumatriptan succinate [Imitrex] 50 mg Tablet 50 mg PO Q2-4H PRN (Reason: Headache) Rx Instructions: do not exceed 4 doses per 24 hrs hydrochlorothiazide 25 mg Tablet 25 mg PO DAILY lisinopril 40 mg Tablet 40 mg PO DAILY acetylcysteine [NAC] 600 mg Capsule 1,200 mg PO DAILY ibuprofen 600 mg Tablet 600 mg PO Q6H PRN (Reason: Pain (Scale Score 4-6)) ondansetron 4 mg tablet,disintegrating 4 mg PO Q4HR PRN (Reason: Nausea) Qty: 30 0RF Rx Instructions: take one tablet as needed for nausea every 6 hours anastrozole 1 mg Tablet 1 mg PO DAILY Qty: 90 3RF Referrals: Sebas Chavira MD [Primary Care Provider] -
--- NOTE | 2024-01-15 13:36 | DI.RAD.S_ITS ---
PROCEDURE: XR CHEST 1V INDICATIONS: chest pain TECHNIQUE: One view of the chest was acquired. COMPARISON: [facility], CR, XR CHEST 2V, 10/01/2023, 11:32. [facility], CR, XR CHEST 2V, 07/12/2023, 11:04. FINDINGS: Surgical changes and devices: None. Lungs and pleura: Lungs are clear. No pleural effusions or pneumothorax. Mediastinum: Mediastinal contours appear normal. Heart size is normal. Bones and chest wall: No suspicious bony lesions. Overlying soft tissues appear unremarkable. IMPRESSION: No acute cardiopulmonary abnormality is seen. Dictated by: Saul Hutchinson M.D. on 01/15/2024 at 14:24 Approved by: Saul Hutchinson M.D. on 01/15/2024 at 14:25
--- NOTE | 2024-01-15 13:36 | EKG_ITS ---
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
[2024-01-15] MEDS: MAGNESIUM SULFATE 2 GM/50 ML PIGGYBACK IV (13:45)
[2024-01-15] MEDS: SODIUM CHLORIDE 0.9% 1,000 ML 150 ML IV (13:45)
[2024-01-15 13:51] LABS: Add Manual Diff / Slide Review NO; Basophils Absolute Auto 100 /uL (0-100); Eosinophils Absolute Auto 0 /uL (0-450); Eosinophils Percent Auto 0.2 % (2-4); Hematocrit 47.4 % (36-46); Hemoglobin 16.3 g/dL (12.0-16.0); Lymphocytes Absolute Auto 1000 /uL (1100-4500); Mean Corpuscular HGB Conc 34.4 % (30-36); Mean Corpuscular Hemoglobin 33.5 PG (26-34); Mean Corpuscular Volume 97.2 fL (80-100); Monocytes Absolute Auto 700 /uL (0-900); Monocytes Percent Auto 6.5 % (3-14); Neutrophils Absolute Auto 8500 /uL (1500-7000); Neutrophils Percent Auto 82.3 % (50-75); Platelet Count 326 X10^3/uL (150-400); Red Blood Cell Count 4.87 X10^6/uL (4.0-5.2); Red Cell Distribution Width 13.9 % (11.6-14.8); White Blood Cell Count 10.3 X10^3/uL (4.5-11.0)
[2024-01-15 13:59] LABS: INR 0.9 (0.9-1.3); Prothrombin Time 9.8 SECONDS (9.4-12.5)
[2024-01-15 14:01] LABS: D Dimer 1385 ng/ml (<500)
[2024-01-15 14:02] LABS: PTT Partial Thromboplastin Tim 38 SECONDS (25.1-36.5)
[2024-01-15 14:03] LABS: Alanine Aminotransferase 40 IU/L (<35); Albumin 5.1 g/dL (3.5-5.0); Albumin Globulin Ratio 1.2 (1.0-2.8); Alkaline Phosphatase 125 U/L (38-126); Aspartate Aminotransferase 55 IU/L (14-36); BUN Creatinine Ratio 21.6 (6-22); Blood Urea Nitrogen 16 mg/dL (7-17); Carbon Dioxide 23 mmol/L (22-32); Chloride 95 mmol/L (98-107); Creatine Kinase 85 U/L (30-135); Estimated Glomerular Filt Rate > 60 mL/min (>60); Globulin 4.1 g/dL (1.7-4.1); Glucose 133 mg/dL (80-110); HEMOLYSIS 31 (0-50); Lipase 365 U/L (23-300); Sodium 134 mmol/L (137-145); Total Protein 9.2 g/dL (6.3-8.2)
--- NOTE | 2024-01-15 14:06 | DI.CT.S_ITS ---
PROCEDURE: CT ABDOMEN PELVIS W CON INDICATIONS: sepsis TECHNIQUE: After the administration of intravenous contrast, axial sections acquired from the lung bases to the pubic symphysis. Coronal and sagittal reformats were performed. For radiation dose reduction, the following was used: automated exposure control, adjustment of mA and/or kV according to patient size. COMPARISON: None. FINDINGS: Image quality: Diagnostic. Lower Chest: Separately dictated. ABDOMEN: Liver: No solid mass. Gallbladder: Absent. Biliary ducts: No biliary dilation. Pancreas: No ductal dilation. Spleen: Size is within normal limits. Adrenal Glands: No adrenal nodules. Kidneys and Ureters: No hydronephrosis. No solid mass. No complex renal cystic lesion which requires follow up. Stomach and Bowel: Normal colonic caliber, without significant wall thickening. Peritoneum: No abnormal intraperitoneal fluid. No free air. Ventral Wall: No significant ventral hernia. Abdominal Nodes: No retroperitoneal or mesenteric adenopathy by size criteria. Vessels: Aorta and inferior vena cava are normal in size. PELVIS: Pelvic Organs: Unremarkable. Bladder: No bladder wall thickening, accounting for underdistention. Pelvic Nodes: No enlarged lymph nodes. Miscellaneous: No inguinal hernias are seen. Bones: No aggressive osseous abnormality. Degenerative disc disease of the lumbar spine. Opposing endplate sclerosis at L2-3 and L4-5. IMPRESSION: No findings of infection. Dictated by: Saul Hutchinson M.D. on 01/15/2024 at 14:55 Approved by: Saul Hutchinson M.D. on 01/15/2024 at 14:59
[2024-01-15 14:08] LABS: Lactate (Lactic Acid) 4.3 mmol/L (0.7-2.1)
[2024-01-15 14:12] LABS: NT-proBNP (BNP-Adult 18+) 240 pg/mL (<450)
[2024-01-15 14:14] LABS: Troponin I 0.018 ng/mL (0.01-0.034)
[2024-01-15 14:19] LABS: Procalcitonin 0.054 ng/mL (<0.5)
--- NOTE | 2024-01-15 14:22 | DI.CT.S_ITS ---
PROCEDURE: CT ANGIO CHEST PE PROTOCOL INDICATIONS: elevated ddimer TECHNIQUE: After the administration of intravenous contrast, 2 mm thick sections acquired from the pulmonary apices to the posterior costophrenic angles. 3-dimensional maximum intensity projection (MIP) coronal and sagittal reformats were then acquired through the thorax. For radiation dose reduction, the following was used: automated exposure control, adjustment of mA and/or kV according to patient size. COMPARISON: None. FINDINGS: Image quality: Diagnostic. Pulmonary arteries: Pulmonary arteries are normal in size, and demonstrate no intraluminal filling defects to suggest central pulmonary embolism. Lower Neck: No enlarged lymph nodes. Thyroid: No thyroid nodules which require sonographic follow up, per consensus guidelines. Axillae: No enlarged lymph nodes. Chest Wall: Unremarkable. Bones: Unremarkable. Lungs and Pleura: No pneumothorax or pleural effusions. No consolidation or suspicious nodules. Heart: Heart size is normal. No pericardial effusion. Thoracic Vessels: No aortic aneurysm. Mediastinum and Emmy: No enlarged lymph nodes. Esophagus: Circumferential thickening of the esophagus. Upper Abdomen: Visualized upper abdomen solid organs and bowel loops appear normal. IMPRESSION: No pulmonary embolus. Circumferential thickening of the esophagus, which may indicate esophagitis. Correlate with symptoms. Dictated by: Saul Hutchinson M.D. on 01/15/2024 at 14:53 Approved by: Saul Hutchinson M.D. on 01/15/2024 at 14:55
[2024-01-15 14:23] LABS: Free T4, Direct Thyroxine 1.13 ng/dL (0.78-2.19)
[2024-01-15 14:29] LABS: COVID-19 CEPHEID 4-PLEX PCR Negative (Negative); Influenza A - CEPHEID Flu A NEGATIVE (NEGATIVE); Influenza B - CEPHEID Flu B NEGATIVE (NEGATIVE); Respiratory Syncytial Virus Negative (Negative)
[2024-01-15 14:37] LABS: Thyroid Stimulating Hormone 2.78 uIU/mL (0.47-4.68)
[2024-01-15 15:05] LABS: Bacteria Urine Few (2-10); Culture Indicated Urine Cult Not Indicated; RBC Urine 0-1/HPF (0-5/HPF); Squamous Epithelial Cell Urine 0-1 /HPF (0-5/HPF); Urine Volume 10mL (spun); WBC Urine 0-1/HPF (0-5/HPF)
[2024-01-15 15:20] LABS: Reflexed Lactate in 2 Hours Y
[2024-01-15 16:02] LABS: Lactate 2HR (Lactic Acid Rflx) 1.4 mmol/L (0.7-2.1)
[2024-01-15 16:15] LABS: Troponin I 0.029 ng/mL (0.01-0.034)
[2024-01-15] MEDS: LORazepam 2 MG/ML INJ 1 MG IV (16:23)
== END 2024-01-15 17:20 | disposition home or self-care (01) ==
PROVIDERS: Emergency Provider Student in an Organized Health Care Education/Training Program; PCP Family Medicine
DX: R06.02 Shortness of breath (principal); R07.9 Chest pain, unspecified; R00.0 Tachycardia, unspecified; R79.89 Other specified abnormal findings of blood chemistry; I10 Essential (primary) hypertension; E78.5 Hyperlipidemia, unspecified; E03.9 Hypothyroidism, unspecified; Z79.899 Other long term (current) drug therapy; Z11.52 Encounter for screening for COVID-19
CPT/HCPCS: 0241U; 36415; 71045; 71275; 74177; 80053; 81003; 81015; 82550; 82962; 83605; 83690; 83880; 84145; 84439; 84443; 84481; 84484; 85025; 85379; 85610; 85730; 87040; 93005; 93010; 96361; 96374; 99284; J2060; J3475; Q9967

== ENCOUNTER → 2024-04-18 07:03 | Outpatient (CLI) | payer MEDICARE, OTHER, SELFPAY ==
[2019-12-04 21:58] VITALS: BMI 33.5
--- NOTE | 2024-04-18 07:05 | DI.ECHO.S_ITS ---
[place] [facility]---------+ [facility] : : [address] : : [place] : : [id number] : : Phone: [phone] Echocardiogram Report + + :Name: MATTHEW GOODEN Study Date: 04/18/2024 Height: 65 in : :[facility] ReadingLocation: Weight: 173 lb : : Gender: Female BSA: 1.9 m2 : :: 1950 Age: 73 yrs BP: 119/77 mmHg: :Reason For Study: AORTIC VALVE STENOSIS : :Ordering Physician: TREVIN, : :VINAY Performed By: Bal Downey : :Referring: VINAY AG : + + Interpretation Summary 1) Mildly increased left ventricular thickness (concentric) with normal size, normal wall motion, and normal systolic function (EF 55-60%). 2) Grossly, normal right ventricular size and function. 3) There is severe aortic stenosis (valve area 0.7cm2, mean gradient 53mmHg, severity ratio 0.19). 4) There is mild to moderate aortic regurgitation. 5) Compared to the Echo done 08/14/2022, aortic stenosis has progressed from moderate to severe on this study. Procedure: A two-dimensional transthoracic echocardiogram with color flow and Doppler was performed. The study quality was technically good. Comparison is made with the echocardiogram of 08/14/2022. The patient was in normal sinus rhythm during the exam. Left Ventricle: The left ventricle is normal in size. Left ventricular wall thickness is mildly increased. There is no ventricular septal defect visualized. The ejection fraction is estimated to be 55-60%. There are no focal wall motion abnormalities. Right Ventricle: The right ventricle is normal in size and function. Atria: The left atrium is severely dilated. Right atrial size is normal. There is no Doppler evidence for an interatrial shunt. Mitral Valve: The mitral valve leaflets appear mildly thickened, but open well. There is mild mitral regurgitation. Aortic Valve: The aortic valve is trileaflet. There is moderate aortic valve sclerosis. There is severe aortic stenosis. The calculated aortic valve area is 0.7 cm2. The peak aortic velocity is 4.48 m/sec. The aortic valve mean gradient is 53 mmHg. There is mild to moderate aortic regurgitation. Tricuspid Valve: The tricuspid valve leaflets are thin and pliable. There is trace tricuspid regurgitation. The right ventricular systolic pressure is estimated to be at least 22 mmHg based on an estimated right atrial pressure of 3 mm Hg. Pulmonic Valve: The pulmonic valve is not well seen, but is grossly normal. There is no pulmonic valvular regurgitation. Great Vessels: The aortic root is normal size. The dimensions of the ascending aorta are normal. The pulmonary artery is normal size. The IVC is of normal diameter and collapses greater than 50% with a sniff. This suggests a low right atrial pressure of 3 mm Hg. Pericardium/ Pleura There is no pericardial effusion. There is no pleural effusion. MMode/2D Measurements & Calculations LVIDd: 4.2 cm LVOT diam: 2.0 cm LVIDs: 3.0 cm Ao root diam: 2.7 cm FS: 28.7 % asc Aorta Diam: 3.3 cm EPSS: 0.58 cm Ao Arch Diam (Prox Trans): 2.0 cm IVSd: 1.2 cm LVPWd: 1.3 cm LV merchant. diameter/BSA (cm/m^2): 2.2 LV sys. diameter/BSA (cm/m^2): 1.6 LA A2 area: 25.3 cm2 RA long axis: 4.2 cm LA A4 area: 23.6 cm2 RA area: 13.3 cm2 LA length (vol): 6.1 cm RA vol: 35.7 ml LA vol: 83.4 ml RA : 19.2 ml/m2 LA vol index: 44.8 ml/m2 IVC diam: 1.0 cm RVD1 (basal): 3.4 cm RVD2 (mid): 2.5 cm TAPSE: 1.7 cm Doppler Measurements & Calculations Ao V2 max: 447.6 cm/sec LVOT Max Yusuf: 93.6 cm/sec Ao V2 mean: 346.9 cm/sec LV V1 max P.5 mmHg Ao max P.1 mmHg LV V1 VTI: 21.0 cm Ao mean P.0 mmHg MIKE(I,D): 0.61 cm2 Ao V2 VTI: 113.5 cm MIKE(V,D): 0.69 cm2 sev ratio: 0.19 MIKE indexed to BSA (cm^2/m^2): 0.33 AI P1/2t: 331.3 msec AI dec slope: 402.8 cm/sec2 MV E max yusuf: 68.2 cm/sec TR max yusuf: 216.6 cm/sec MV A max yusuf: 94.6 cm/sec TR max P.8 mmHg MV E/A: 0.72 PA V2 max: 84.2 cm/sec Med Peak E' Yusuf: 4.0 cm/sec PA V2 mean: 57.3 cm/sec E/E' med: 17.3 PA mean P.5 mmHg Lat Peak E' Yusuf: 5.1 cm/sec PA pr(Accel): 44.7 mmHg E/E' lat: 13.3 E/e' average: 15.3 MV dec time: 0.27 sec SV(LVOT): 69.1 ml Reading Physician:12:45 PM
== END ==
LOC: ECHO 07:04
PROVIDERS: PCP Family Medicine; Referring Provider Internal Medicine Cardiovascular Disease; Visit Provider Internal Medicine Cardiovascular Disease
DX: I08.0 Rheumatic disorders of both mitral and aortic valves (principal)
CPT/HCPCS: 93306

== ENCOUNTER 2024-06-21 19:02 | Emergency (ER) | payer MEDICARE, OTHER, SELFPAY ==
[2019-12-04 21:58] VITALS: BMI 33.5
[2024-06-21] VITALS (21 sets, daily range): BP systolic 161–219; BP diastolic 61–105; PULSE 64–86; RESP 14–24; TEMP 36.6; O2SAT 92–96; BMI 27.6
--- NOTE | 2024-06-21 19:05 | EKG_ITS ---
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
--- NOTE | 2024-06-21 19:15 | DI.RAD.S_ITS ---
PROCEDURE: XR CHEST 1V INDICATIONS: chest pain TECHNIQUE: One view of the chest was acquired. COMPARISON: [facility], CR, XR CHEST 1V, 01/15/2024, 13:53. FINDINGS: Surgical changes and devices: Surgical clips in the right breast. Lungs and pleura: Bilateral perihilar mixed interstitial and alveolar opacities and small left base opacity. No significant pleural effusion or pneumothorax. Mediastinum: Mild cephalization of central vessels. Normal aortic contour. Bones and chest wall: No suspicious bony lesions. Overlying soft tissues appear unremarkable. IMPRESSION: Mild central vascular. Mixed interstitial and alveolar opacities in the perihilar region suggests interstitial and pulmonary edema. Exclude infection. Correlate clinically. Dictated by: Rita Valverde M.D. on 06/21/2024 at 20:32 Approved by: Rita Valverde M.D. on 06/21/2024 at 20:33
[2024-06-21] MEDS: ASPIRIN 81 MG CHEW TAB 324 MG PO (19:35)
[2024-06-21 19:57] LABS: INR 1.1 (0.9-1.3); Prothrombin Time 12.6 SECONDS (9.4-12.5)
[2024-06-21 19:58] LABS: Add Manual Diff / Slide Review NO; Basophils Absolute Auto 100 /uL (0-100); Basophils Percent Auto 1.1 % (0-2); Eosinophils Absolute Auto 300 /uL (0-450); Eosinophils Percent Auto 2.9 % (2-4); Hematocrit 26.4 % (36-46); Hemoglobin 8.3 g/dL (12.0-16.0); Lymphocytes Absolute Auto 2200 /uL (1100-4500); Lymphocytes Percent Auto 20.2 % (25-40); Mean Corpuscular HGB Conc 31.4 % (30-36); Mean Corpuscular Hemoglobin 25.4 PG (26-34); Mean Corpuscular Volume 80.9 fL (80-100); Monocytes Absolute Auto 800 /uL (0-900); Monocytes Percent Auto 7.7 % (3-14); Neutrophils Absolute Auto 7400 /uL (1500-7000); Neutrophils Percent Auto 68.1 % (50-75); Platelet Count 530 X10^3/uL (150-400); Red Blood Cell Count 3.27 X10^6/uL (4.0-5.2); Red Cell Distribution Width 23.5 % (11.6-14.8); White Blood Cell Count 10.9 X10^3/uL (4.5-11.0)
[2024-06-21 19:59] LABS: PTT Partial Thromboplastin Tim 34 SECONDS (25.1-36.5)
[2024-06-21 20:00] LABS: Alanine Aminotransferase 26 IU/L (<35); Albumin 4.3 g/dL (3.5-5.0); Albumin Globulin Ratio 1.3 (1.0-2.8); Alkaline Phosphatase 115 U/L (38-126); Aspartate Aminotransferase 30 IU/L (14-36); BUN Creatinine Ratio 20.9 (6-22); Bilirubin Total 0.6 mg/dL (0.2-1.3); Blood Urea Nitrogen 19 mg/dL (7-17); Calcium 9.4 mg/dL (8.4-10.2); Carbon Dioxide 20 mmol/L (22-32); Chloride 104 mmol/L (98-107); Creatine Kinase 59 U/L (30-135); Estimated Glomerular Filt Rate > 60 mL/min (>60); Globulin 3.2 g/dL (1.7-4.1); Glucose 105 mg/dL (80-110); HEMOLYSIS < 15 (0-50); Lipase 352 U/L (23-300); Magnesium 1.7 mg/dL (1.6-2.3); Potassium 3.8 mmol/L (3.4-5.1); Sodium 137 mmol/L (137-145); Total Protein 7.5 g/dL (6.3-8.2)
[2024-06-21 20:12] LABS: NT-proBNP (BNP-Adult 18+) 4080 pg/mL (<450); Troponin I 0.019 ng/mL (0.01-0.034)
--- NOTE | 2024-06-21 20:26 | ED_ITS ---
HPI - Chest Pain General Chief Complaint: Chest Pain Stated Complaint: SOB, chest px; hx aortic stenosis Time Seen by Provider: 06/21/24 20:25 Source: patient Mode of arrival: Wheelchair History of Present Illness HPI narrative: 74-year-old female with history of aortic stenosis followed by local home appraiser Dr. Ag, believes she had an echocardiogram about a year ago, history of migraine headaches with ongoing Imitrex and 1 month ago addition of propranolol with decrease in intensity and frequency of her light sensitivity and headaches, but having shortness of breath starting yesterday. No chest pain. No recent cough or fevers. No lower extremity edema. She is not feel like she is going to pass out. Denies dizziness. No change in exercise tolerance. Related Data Home Medications Medication Instructions Recorded Confirmed paroxetine HCl 20 mg tablet (Paxil) 20 mg PO QDAY ##0 12/17/10 06/21/24 acetylcysteine 600 mg capsule (NAC) 1,200 mg PO DAILY 07/13/21 06/21/24 atorvastatin 40 mg tablet 40 mg PO DAILY 07/13/21 06/21/24 hydrochlorothiazide 25 mg tablet 25 mg PO DAILY 07/13/21 06/21/24 sumatriptan succinate 50 mg tablet 50 mg PO Q2-4H PRN Headache 07/13/21 06/21/24 (Imitrex) ibuprofen 600 mg tablet 600 mg PO Q6H PRN Pain (Scale 08/10/21 06/21/24 Score 4-6) levothyroxine 100 mcg tablet 100 mcg PO DAILY 06/21/24 06/21/24 lisinopril 20 mg tablet 20 mg PO DAILY 06/21/24 06/21/24 propranolol 10 mg tablet 10 mg PO BID 06/21/24 06/21/24 Previous Rx's Medication Instructions Recorded ondansetron 4 mg disintegrating 4 mg PO Q4HR PRN Nausea #30 tabs 11/23/21 tablet anastrozole 1 mg tablet 1 mg PO DAILY #90 tabs 11/14/22 Allergies Allergy/AdvReac Type Severity Reaction Status Date / Time No Known Drug Allergies Allergy Verified 06/21/24 19:06 Patient History Medical History (Updated 06/22/24 @ 05:36 by Mahendra Rabago MD) IBS (irritable bowel syndrome) TIA (transient ischemic attack) Throat cancer (2003) History of migraine Panic attacks Hypertension Elevated cholesterol Surgical History (Updated 07/13/21 @ 10:09 by Fredy Samaniego MD) Hx laparoscopic cholecystectomy History of carotid endarterectomy Social History household members: spouse Smoking Status: Never smoker alcohol intake: current Smoking Status: Never smoker alcohol intake frequency: 0-2 drinks per day Alcohol type: hard liquor Exam Narrative Exam Narrative: GENERAL: Well-developed patient, in mild distress. HEAD: Atraumatic. Normocephalic. EYES: Pupils equal round and reactive. Extraocular motions intact. No scleral icterus. No injection or drainage. ENT: Nose without bleeding, purulent drainage. Throat without erythema, tonsillar hypertrophy or exudate. Airway patent. NECK: Trachea midline. Non tender. Carotid upstrokes not particularly diminished. CARDIOVASCULAR: Regular rate and rhythm, systolic murmur noted left upper sternal border, could not really hear it in the carotids, gallops, or rubs. RESPIRATORY: Clear to auscultation. Breath sounds equal bilaterally. No wheezes, rales, or rhonchi. GASTROINTESTINAL: Abdomen soft, non-tender, nondistended. EXTREMITIES: No edema or joint tenderness. BACK: Nontender without deformity or crepitance. No flank tenderness. NEURO: AOx3. Motor functions grossly nonfocal SKIN: No rash or erythema of visible areas Initial Vital Signs Initial Vital Signs: Vital Signs Temperature 97.8 F 06/21/24 19:06 Pulse Rate 72 06/21/24 19:06 Respiratory Rate 20 06/21/24 19:06 Blood Pressure 202/91 H 06/21/24 19:06 Pulse Oximetry 96 06/21/24 19:06 Oxygen Delivery Method Room Air 06/21/24 19:06 Course Orders Ordered: Discontinued Medications Aspirin (Aspirin 81 Mg Chew Tab) 324 mg PO NOW ONE Stop: 06/21/24 19:16 Last Admin: 06/21/24 19:35 Dose: 324 mg Documented By: KB Furosemide (Furosemide 40 Mg/4 Ml Vial) 40 mg IV NOW ONE Stop: 06/21/24 20:57 Last Admin: 06/21/24 21:48 Dose: 40 mg Documented By: AB Hydralazine HCl (Hydralazine 20 Mg/Ml Vial) 5 mg IV NOW ONE Stop: 06/21/24 22:01 Last Admin: 06/21/24 22:15 Dose: Not Given Documented By: SU Hydralazine HCl (Hydralazine 20 Mg/Ml Vial) 5 mg IV NOW ONE Stop: 06/21/24 23:45 Last Admin: 06/21/24 23:50 Dose: 5 mg Documented By: SU Labetalol HCl (Labetalol 20 Mg/4 Ml Syringe) 10 mg IV NOW ONE Stop: 06/21/24 21:37 Last Admin: 06/21/24 21:48 Dose: 10 mg Documented By: Morphine Sulfate (Morphine 4 Mg/Ml Inj) 4 mg IV NOW ONE Stop: 06/22/24 00:27 Last Admin: 06/22/24 00:29 Dose: 4 mg Documented By: SU Morphine Sulfate (Morphine 4 Mg/Ml Inj) 4 mg IV NOW ONE Stop: 06/22/24 03:12 Last Admin: 06/22/24 03:15 Dose: 4 mg Documented By: SU Vital Signs Vital signs: Vital Signs - 8 hr 06/21/24 19:06 06/21/24 19:41 06/21/24 19:47 Temperature 97.8 F Pulse Rate 72 67 67 Respiratory Rate 20 14 Blood Pressure 202/91 H Pulse Oximetry 96 96 95 Oxygen Delivery Method Room Air Room Air 06/21/24 19:47 06/21/24 20:00 06/21/24 20:00 Temperature Pulse Rate 72 Respiratory Rate 18 Blood Pressure 164/77 H 192/90 H Pulse Oximetry 95 Oxygen Delivery Method 06/21/24 20:14 06/21/24 20:14 06/21/24 20:15 Temperature Pulse Rate 83 81 Respiratory Rate 20 21 Blood Pressure 172/61 H Pulse Oximetry 94 Oxygen Delivery Method Room Air 06/21/24 20:15 06/21/24 20:30 06/21/24 20:30 Temperature Pulse Rate 75 Respiratory Rate 22 Blood Pressure 199/93 H 200/95 H Pulse Oximetry 92 93 Oxygen Delivery Method Room Air Room Air 06/21/24 20:45 06/21/24 20:45 06/21/24 21:00 Temperature Pulse Rate 79 85 Respiratory Rate 24 21 Blood Pressure 205/98 H Pulse Oximetry 92 95 Oxygen Delivery Method 06/21/24 21:00 06/21/24 21:15 06/21/24 21:15 Temperature Pulse Rate 77 Respiratory Rate 30 H Blood Pressure 219/104 H 211/100 H Pulse Oximetry 94 Oxygen Delivery Method 06/21/24 21:30 06/21/24 21:30 06/21/24 21:48 Temperature Pulse Rate 78 86 Respiratory Rate 18 Blood Pressure 200/105 H 200/105 H Pulse Oximetry 96 Oxygen Delivery Method 06/21/24 21:51 06/21/24 21:51 06/21/24 22:00 Temperature Pulse Rate 79 Respiratory Rate 24 Blood Pressure 204/95 H 173/79 H Pulse Oximetry 95 Oxygen Delivery Method Room Air 06/21/24 22:00 06/21/24 22:29 06/21/24 22:30 Temperature Pulse Rate 67 68 Respiratory Rate 20 20 Blood Pressure 161/74 H Pulse Oximetry 94 95 Oxygen Delivery Method 06/21/24 22:31 06/21/24 23:00 06/21/24 23:01 Temperature Pulse Rate 64 69 70 Respiratory Rate 22 24 24 Blood Pressure Pulse Oximetry 95 95 94 Oxygen Delivery Method 06/21/24 23:01 06/21/24 23:30 06/21/24 23:30 Temperature Pulse Rate 79 Respiratory Rate 20 Blood Pressure 188/88 H 210/95 H Pulse Oximetry 94 Oxygen Delivery Method Room Air 06/21/24 23:50 06/21/24 23:50 06/22/24 00:00 Temperature Pulse Rate 74 74 72 Respiratory Rate 16 Blood Pressure 210/95 H 210/95 H Pulse Oximetry 96 Oxygen Delivery Method 06/22/24 00:01 06/22/24 00:01 06/22/24 00:28 Temperature Pulse Rate 73 72 Respiratory Rate 19 Blood Pressure 174/83 H 174/83 H Pulse Oximetry 98 Oxygen Delivery Method Room Air 06/22/24 00:30 06/22/24 00:30 06/22/24 01:00 Temperature Pulse Rate 68 73 Respiratory Rate 16 18 Blood Pressure 163/74 H Pulse Oximetry 97 94 Oxygen Delivery Method 06/22/24 01:00 06/22/24 01:30 06/22/24 01:31 Temperature Pulse Rate 79 Respiratory Rate 19 Blood Pressure 130/78 173/79 H Pulse Oximetry 94 Oxygen Delivery Method 06/22/24 01:31 06/22/24 01:59 06/22/24 03:00 Temperature Pulse Rate 79 80 Respiratory Rate 22 19 Blood Pressure 192/82 H Pulse Oximetry 94 94 Oxygen Delivery Method 06/22/24 03:04 Temperature Pulse Rate 80 Respiratory Rate 18 Blood Pressure Pulse Oximetry 94 Oxygen Delivery Method MDM - Chest Pain Lab Data Attestation: I reviewed the patient's lab results. Lab results narrative: White blood cell count 12415, hemoglobin 8.3, platelets 530 increased. Sodium 137, potassium 3.8, serum CO2 20, BUN 19 with creatinine 0.91, glucose 105. Liver functions normal. Lipase 352 slight elevation. Troponin 0.19 low. BNP elevated 4080. 06/21/24 19:30 06/21/24 19:30 Labs: Lab Results 06/21/24 06/21/24 Range/Units 19:30 21:37 WBC 10.9 (4.5-11.0) X10^3/uL RBC 3.27 L (4.0-5.2) X10^6/uL Hgb 8.3 L (12.0-16.0) g/dL Hct 26.4 L (36-46) % MCV 80.9 (80-100) fL MCH 25.4 L (26-34) PG MCHC 31.4 (30-36) % RDW 23.5 H (11.6-14.8) % Plt Count 530 H (150-400) X10^3/uL Neut % (Auto) 68.1 (50-75) % Lymph % (Auto) 20.2 L (25-40) % Lewis % (Auto) 7.7 (3-14) % Eos % (Auto) 2.9 (2-4) % Baso % (Auto) 1.1 (0-2) % Neut # (Auto) 7400 H (4278-4664) /uL Lymph # (Auto) 2200 (6590-7397) /uL Lewis # (Auto) 800 (0-900) /uL Eos # (Auto) 300 (0-450) /uL Baso # (Auto) 100 (0-100) /uL RBC Morphology See below Anisocytosis 3+ H Microcytosis 1+ H Target Cells 1+ H Schistocytes 1+ H PT 12.6 H (9.4-12.5) SECONDS INR 1.1 (0.9-1.3) APTT 34 (25.1-36.5) SECONDS Sodium 137 (137-145) mmol/L Potassium 3.8 (3.4-5.1) mmol/L Chloride 104 (98-107) mmol/L Carbon Dioxide 20 L (22-32) mmol/L BUN 19 H (7-17) mg/dL Creatinine 0.91 (0.52-1.04) mg/dL Estimated GFR > 60 (>60) mL/min BUN/Creatinine Ratio 20.9 (6-22) Glucose 105 (80-110) mg/dL Calcium 9.4 (8.4-10.2) mg/dL Magnesium 1.7 (1.6-2.3) mg/dL Total Bilirubin 0.6 (0.2-1.3) mg/dL AST 30 (14-36) IU/L ALT 26 (<35) IU/L Alkaline Phosphatase 115 (38-126) U/L Total Creatine Kinase 59 (30-135) U/L Troponin I 0.019 0.021 (0.01-0.034) ng/mL NT-Pro-B Natriuret Pep 4080 H (<450) pg/mL Total Protein 7.5 (6.3-8.2) g/dL Albumin 4.3 (3.5-5.0) g/dL Globulin 3.2 (1.7-4.1) g/dL Albumin/Globulin Ratio 1.3 (1.0-2.8) Lipase 352 H (23-300) U/L Imaging Data Chest x-ray: Radiologist's Impression: [place] [address] XRay Report Signed Patient: Isela Galeana MR#: [id number] : 1950 Acct:[id number] Age/Sex: 74 / F Date of Service: 06/21/24 Loc: ED Accession Number: [id number] Procedure: XR chest 1V Ordering Provider: Mahendra Rabago MD PROCEDURE: XR CHEST 1V INDICATIONS: chest pain TECHNIQUE: One view of the chest was acquired. COMPARISON: [facility], , XR CHEST 1V, 01/15/2024, 13:53. FINDINGS: Surgical changes and devices: Surgical clips in the right breast. Lungs and pleura: Bilateral perihilar mixed interstitial and alveolar opacities and small left base opacity. No significant pleural effusion or pneumothorax. Mediastinum: Mild cephalization of central vessels. Normal aortic contour. Bones and chest wall: No suspicious bony lesions. Overlying soft tissues appear unremarkable. IMPRESSION: Mild central vascular. Mixed interstitial and alveolar opacities in the perihilar region suggests interstitial and pulmonary edema. Exclude infection. Correlate clinically. Dictated by: Rita Valverde M.D. on 06/21/2024 at 20:32 Approved by: Rita Valverde M.D. on 06/21/2024 at 20:33 ECG Data Attestation: I personally reviewed and interpreted this ECG as follows: Interpretation: Normal sinus rhythm with rate of 70, no obvious ST segment elevation or depression changes. [place] 132, QRS 94, QTC 453. MDM Narrative Medical decision making narrative: 74-year-old female with history of aortic stenosis, believes her last echocardiogram was about one year ago, followed by Dr. Ag cardiology, also has had recent headaches that seemed to be improved with the addition of propranolol 4 weeks ago, still taking PRN Imitrex, generally having improved headache symptoms. Complains of shortness of breath for the last couple of days. No fevers or chills or cough. No lower extremity edema. No syncope or near-syncope symptoms. Cardiac murmur left upper sternal border noted, consistent with reported aortic stenosis murmur. No significant diminished carotid upstrokes. No lower extremity edema on exam. Speaking in full sentences. Screening EKG without obvious ischemic changes, troponin low measured. BNP 4080 elevated. Repeat interval troponin to be drawn. Blood pressure 210/100, patient takes propranolol, heart rate 80s, we will give IV labetalol 10 mg. Still elevated, IV hydralazine 5mg. Blood pressure improved 178/98. Chest x-ray suspicious for pulmonary edema, no infiltrative infectious changes. No effusions mentioned. See radiology report. Medical records, echocardiogram located, dated 04/18/2024. Dr. Ag interpretation, summary: ?Mild increased left ventricular thickness concentric with normal size, normal wall motion, normal systolic function EF 55-60%. Grossly normal right ventricular size and function. There is severe aortic stenosis (valve area 0.7 cm2, mean gradient 53 mmHg, severity ratio 0.19). There is [id number] aortic regurgitation. Compared to echo 08/14/2022 aortic stenosis has progressed from moderate to severe on this study.? See report. 2199, case discussed with on-call cardiology Dr. Chiu at [facility], agrees patient has known critical and now symptomatic shortness of breath with elevated BNP suspicious for congestive heart failure, needs urgent evaluation for likely aortic valve replacement/intervention, advises transfer, they tend to use [facility], versus other facility with appropriate Cardiology and Cardiothoracic surgery capabilities. Patient made aware, we will initiate transfer. 014, case discussed with [facility] hospitalist Dr. Pearson, requests consultation with their home appraiser. 020, case discussed with [facility] cardiologists Dr. Myers, who will consult, agrees with need for transfer. Awaiting call back from [facility] for bed assignment. 329, that assigned [facility], soonest ALS ground transport would be 9+ hours delay, will investigate air ambulance options for transfer Critical Care Time Critical Care Time Critical Care Time: Yes Total Critical Care Time: 35 Attestation: The high probability of a clinically significant, sudden or life threatening deterioration of the [cardiopulmonary] system(s) required my full and direct attention, intervention and personal management. The aggregate critical care time was [35] minutes. This time is in addition to time spent performing reported procedures but includes the following: [x] Data Review and interpretation [x] Patient assessment and monitoring of vital signs [x] Documentation [x] Medication orders and management Discharge Plan Departure Patient Disposition: [facility] Clinical Impression: Aortic stenosis, severe, Hypertension, Shortness of breath, Congestive heart failure Prescriptions: No Action paroxetine HCl [Paxil] 20 MG tablet 20 mg PO QDAY Qty: 0 atorvastatin 40 mg Tablet 40 mg PO DAILY sumatriptan succinate [Imitrex] 50 mg Tablet 50 mg PO Q2-4H PRN (Reason: Headache) Rx Instructions: do not exceed 4 doses per 24 hrs hydrochlorothiazide 25 mg Tablet 25 mg PO DAILY acetylcysteine [NAC] 600 mg Capsule 1,200 mg PO DAILY ibuprofen 600 mg Tablet 600 mg PO Q6H PRN (Reason: Pain (Scale Score 4-6)) ondansetron 4 mg tablet,disintegrating 4 mg PO Q4HR PRN (Reason: Nausea) Qty: 30 0RF Rx Instructions: take one tablet as needed for nausea every 6 hours anastrozole 1 mg Tablet 1 mg PO DAILY Qty: 90 3RF lisinopril 20 mg tablet 20 mg PO DAILY levothyroxine 100 mcg tablet 100 mcg PO DAILY propranolol 10 mg tablet 10 mg PO BID Referrals: Sebas Chavira MD [Primary Care Provider] -
[2024-06-21 20:31] LABS: Anisocytosis 3+; Target Cells 1+
[2024-06-21 20:34] LABS: Microcytosis 1+; Schistocytes 1+
[2024-06-21] MEDS: LABETALOL 20 MG/4 ML SYRINGE 10 MG IV (21:48)
[2024-06-21] MEDS: FUROSEMIDE 40 MG/4 ML VIAL IV (21:48)
[2024-06-21 22:05] LABS: Troponin I 0.021 ng/mL (0.01-0.034)
[2024-06-21] MEDS: HYDRALAZINE 20 MG/ML VIAL 5 MG IV (23:50)
[2024-06-22] VITALS (15 sets, daily range): BP systolic 128–192; BP diastolic 59–83; PULSE 68–80; RESP 16–24; TEMP 36.1; O2SAT 94–98
[2024-06-22] MEDS: MORPHINE 4 MG/ML INJ IV ×2 (00:29→03:15)
== END 2024-06-22 05:09 | disposition short-term general hospital (02) ==
PROVIDERS: Emergency Provider Emergency Medicine; PCP Family Medicine
DX: I35.0 Nonrheumatic aortic (valve) stenosis (principal); I11.0 Hypertensive heart disease with heart failure; I50.9 Heart failure, unspecified; R07.9 Chest pain, unspecified; Z86.79 Personal history of other diseases of the circulatory system; R06.02 Shortness of breath
CPT/HCPCS: 36415; 71045; 80053; 82550; 83690; 83735; 83880; 84484; 85025; 85610; 85730; 93005; 96374; 96375; 96376; 99284; 99291; J0360; J1940; J2270

== ENCOUNTER → 2024-07-05 09:26 | Outpatient (CLI) | payer MEDICARE, OTHER, SELFPAY ==
[2019-12-04 21:58] VITALS: BMI 33.5
== END ==
LOC: LAB 09:26
PROVIDERS: PCP Family Medicine; Visit Provider Physician Assistant Surgical
DX: J02.9 Acute pharyngitis, unspecified (principal)
CPT/HCPCS: 87070; 87147

== ENCOUNTER → 2024-08-07 14:26 | Outpatient (CLI) | payer MEDICARE, OTHER, SELFPAY ==
[2019-12-04 21:58] VITALS: BMI 33.5
--- NOTE | 2024-08-07 14:28 | DI.ECHO.S_ITS ---
[facility] : : [id number] : : [place] : : [id number] : : Phone: [phone] Echocardiogram Report + + :Name: MATTHEW GOODEN Study Date: 08/07/2024 Height: 66 in : :[facility] ReadingLocation: Weight: 175 lb : : Gender: Female BSA: 1.9 m2 : :: 1950 Age: 74 yrs BP: 134/74 mmHg: :Reason For Study: S/P TAVR : :Ordering Physician: TREVIN, : :VINAY Performed By: Bal Downey : :Referring: VINAY AG : + + Interpretation Summary 1) Mildly increased left ventricular thickness (concentric) with normal size, normal wall motion, and normal systolic function (EF 55-60%). 2) Mildly enlarged right ventricle with normal function. 3) There is a bioprosthetic aortic valve that is well seated and opens well (mean gradient 15mmHg). No aortic regurgitation is present. 4) There is mild to moderate mitral regurgitation. 5) Compared to the Echo done 04/18/2024, severely stenotic aortic valve has been replaced with a well functioning bioprosthetic aortic valve. Procedure: A two-dimensional transthoracic echocardiogram with color flow and Doppler was performed. The study quality was technically good. Comparison is made with the echocardiogram of 04/18/2024. The patient was in normal sinus rhythm during the exam. Left Ventricle: The left ventricle is normal in size. Left ventricular wall thickness is mildly increased. There is no ventricular septal defect visualized. The ejection fraction is estimated to be 55-60%. There are no focal wall motion abnormalities. Diastolic parameters suggest probable normal left ventricular diastolic function and normal filling pressures. Right Ventricle: The right ventricle is mildly dilated. The right ventricular systolic function is normal. Atria: The left atrium is severely dilated. Right atrial size is normal. There is no Doppler evidence for an interatrial shunt. Mitral Valve: The mitral valve leaflets appear mildly thickened, but open well. There is mild to moderate mitral regurgitation. Aortic Valve: 23mm Zaragoza Monserrat S3 TAVR visualized. There is a bioprosthetic aortic valve. The peak aortic velocity is 2.55 m/sec. The aortic valve mean gradient is 14.6 mmHg. No aortic regurgitation is present. Tricuspid Valve: The tricuspid valve leaflets are thin and pliable. There is moderate tricuspid regurgitation. The right ventricular systolic pressure is estimated to be at least 51 mmHg based on an estimated right atrial pressure of 3 mm Hg. Pulmonic Valve: The pulmonic valve is not well seen, but is grossly normal. There is trace pulmonic regurgitation. Great Vessels: The aortic root is not well visualized but is probably normal size. The dimensions of the ascending aorta are normal. The pulmonary artery is normal size. The IVC is of normal diameter and collapses greater than 50% with a sniff. This suggests a low right atrial pressure of 3 mm Hg. Pericardium/ Pleura There is no pericardial effusion. There is no pleural effusion. MMode/2D Measurements & Calculations LVIDd: 4.7 cm LVOT diam: 1.7 cm LVIDs: 3.2 cm asc Aorta Diam: 3.2 cm FS: 31.3 % Ao Arch Diam (Prox Trans): 2.0 cm EPSS: 0.86 cm IVSd: 1.2 cm LVPWd: 1.3 cm LV merchant. diameter/BSA (cm/m^2): 2.5 LV sys. diameter/BSA (cm/m^2): 1.7 LA A2 area: 26.2 cm2 RA long axis: 5.1 cm LA A4 area: 30.6 cm2 RA area: 14.6 cm2 LA length (vol): 6.5 cm RA vol: 35.5 ml LA vol: 105.1 ml RA : 18.8 ml/m2 LA vol index: 55.6 ml/m2 IVC diam: 1.9 cm RVD1 (basal): 4.1 cm RVD2 (mid): 3.1 cm TAPSE: 2.2 cm Doppler Measurements & Calculations Ao V2 max: 254.7 cm/sec LVOT Max Yusuf: 97.1 cm/sec Ao V2 mean: 178.6 cm/sec LV V1 max P.8 mmHg Ao max P.9 mmHg LV V1 VTI: 22.9 cm Ao mean P.6 mmHg MIKE(I,D): 0.93 cm2 Ao V2 VTI: 54.4 cm MIKE(V,D): 0.85 cm2 sev ratio: 0.42 MIKE indexed to BSA (cm^2/m^2): 0.49 MV E max yusuf: 126.8 cm/sec TR max yusuf: 345.7 cm/sec MV A max yusuf: 104.0 cm/sec TR max P.8 mmHg MV E/A: 1.2 PA V2 max: 91.4 cm/sec Med Peak E' Yusuf: 5.5 cm/sec PA V2 mean: 62.9 cm/sec E/E' med: 23.1 PA mean P.7 mmHg Lat Peak E' Yusuf: 4.9 cm/sec PA pr(Accel): 49.9 mmHg E/E' lat: 26.0 E/e' average: 24.6 MV dec time: 0.14 sec MR ERO: 0.16 cm2 MR PISA: 2.7 cm2 SV(LVOT): 50.8 ml MR flow rate: 101.1 cm3/sec MR PISA radius: 0.66 cm Reading Physician:[id number] PM
== END ==
PROVIDERS: PCP Family Medicine; Referring Provider Family Medicine; Visit Provider Internal Medicine Cardiovascular Disease
DX: I08.1 Rheumatic disorders of both mitral and tricuspid valves (principal); Z95.2 Presence of prosthetic heart valve
CPT/HCPCS: 93306